=== PATIENT | male | born 1945 | race Caucasian/White ===

== ENCOUNTER 2016-12-13 11:40 | Emergency (ER) | payer OTHER, MEDICARE ==
[~2016-12-13 11:40] MED LIST: APIX5TAB PO; ASPI81 PO; CARV6.25 PO; DILT30 PO; FURO1TAB93 PO; IPRA.5I NEB; LEVA750T PO; LISI2.5T3 PO; METH5 PO; MVI PO; NEBUMIS6 INH; SIMV5TAB32 PO; TRAZ100T50 PO; ZOFR8TAB PO
[2016-12-13 11:42] VITALS: BP 146/99; PULSE 109; RESP 20; TEMP 97.7; O2SAT 99
--- NOTE | 2016-12-13 12:04 | PD ---
Physical Exam Date Seen by Provider: Dec 13, 2016 Time Seen by Provider: 12:01 Data Data Last Documented VS Vital Signs Date Time Temp Pulse Resp B/P Pulse Ox O2 Delivery O2 Flow Rate FiO2 12/13/16 11:42 97.7 109 20 146/99 99 Room Air MDM Supervised Visit with MAHAD: No Narrative Course 71 YO M with complaint of RIGHT foot pain and swelling x 1 day. Denies F/C. Hx MRSA. Vitals reviewed. Awaiting bed placement. Katherine Cohen Dec 13, 2016 12:04
--- NOTE | 2016-12-13 12:15 | PD ---
HPI Chief Complaint: Skin Problem Time Seen by Provider: 12:15 Travel History International Travel<30 days: No Contact w/Intl Traveler<30days: No Traveled to known affect area: No History of Present Illness HPI 71-year-old male came to the emergency room with history of right foot swelling and pain since yesterday. Patient does not recall any injury to the foot. No history of fever or chills. No history of diabetes. He does have a poor podiatry hygiene. Vital signs showed tachycardia. Patient is atrial fibrillation on the monitor. He says he has history of A. fib but is not on any blood thinners. He says his [place] doctor took him off the blood thinners. He was also diagnosed with CLL about a year ago. [facility] Past Medical History Narrative Medical List of his past medical, surgical, social and family history is reviewed from the nursing note. Arthritis: Yes Asthma: No Heart Rhythm Problems: Yes (recent episode of afib rvr) Cancer: Yes (LEUKEMIA) Cardiovascular Problems: Yes High Cholesterol: Yes Chemotherapy: No Chest Pain: No Congestive Heart Failure: No COPD: Yes Cerebrovascular Accident: Yes Diabetes: No Diminished Hearing: No Endocrine: Yes GERD: Yes Genitourinary: No Hiatal Hernia: No Hypertension: Yes Immune Disorder: No Inguinal Hernia: Yes Musculoskeletal: Yes Neurologic: Yes Psychiatric: No Reproductive: No Respiratory: Yes Radiation Therapy: No Sleep Apnea: No Thyroid Disease: Yes (HYPERTHYROID) Ulcer: No Past Surgical History Abdominal Surgery: Yes (hernia repair) Cardiac Surgery: Yes (left carotid endarterectomy) Ear Surgery: No Endocrine Surgery: No Eye Surgery: Yes (right cataract surgery) Genitourinary Surgery: No Gynecologic Surgery: No Oral Surgery: No Thoracic Surgery: No Other Surgery: Yes (THUMB SURGERY, CAROTID ENDORECTOMY 2004) Social History Alcohol Use: No Tobacco Use: Yes Substance Use: No Allergies-Medications (Allergen,Severity, Reaction): Coded Allergies: No Known Allergies (Unverified , 12/13/16) Comments No known drug allergies. Reported Meds & Prescriptions Reported Meds & Active Scripts Active Keflex (Cephalexin) 500 Mg Cap 500 Mg PO Q8H Reported Imbruvica (Ibrutinib) 140 Mg Cap 140 Mg PO DAILY Theragran-M Premier 50+ Caplet (Mv-Mn/FA/Coq10/Lycopene/Lutein) 1 Each Tablet Ipratropium Neb (Ipratropium [place]) 0.5 Mg/2.5 Ml Amp 0.5 Mg NEB Q2HR NEB PRN Aspirin 81 (Aspirin) 81 Mg Tabdr 81 Mg PO DAILY Carvedilol 6.25 Mg Tab 6.25 Mg PO BID Furosemide 40 Mg Tab 40 Mg PO DAILY Methimazole 5 Mg Tab 5 Mg PO DAILY Lisinopril 2.5 Mg Tab 2.5 Mg PO DAILY Trazodone HCl 150 Mg Tablet 100 Mg PO HS PRN Simvastatin 5 Mg Tab 5 Mg PO DAILY Narrative Medication List of his home medications reviewed from the nursing note. Review of Systems Except as stated in HPI: all other systems reviewed are Neg Physical Exam Narrative GENERAL: Awake, alert, moderate distress SKIN: Focused skin assessment warm/dry. The lateral half of the dorsum of right foot has erythema and some swelling. Extremely tender to touch over the head of the third fourth and fifth metatarsal. The toes are crooked and elongated and curled nails. The interdigital space between the fourth and fifth toes but have some fungal infection. HEAD: Atraumatic. Normocephalic. EYES: Pupils equal and round. No scleral icterus. No injection or drainage. ENT: No nasal bleeding or discharge. Mucous membranes pink and moist. NECK: Trachea midline. No JVD. CARDIOVASCULAR: Regular rate and rhythm. No murmur appreciated. RESPIRATORY: No accessory muscle use. Clear to auscultation. Breath sounds equal bilaterally. GASTROINTESTINAL: Abdomen soft, non-tender, nondistended. Hepatic and splenic margins not palpable. MUSCULOSKELETAL: No obvious deformities. No clubbing. No cyanosis. No edema. NEUROLOGICAL: Awake and alert. No obvious cranial nerve deficits. Motor grossly within normal limits. Normal speech. PSYCHIATRIC: Appropriate mood and affect; insight and judgment normal. Data Data Last Documented VS Vital Signs Date Time Temp Pulse Resp B/P Pulse Ox O2 Delivery O2 Flow Rate FiO2 12/13/16 12:22 103 20 124/76 95 Room Air 12/13/16 11:42 97.7 Orders Basic Metabolic Panel (Bmp) (12/13/16 12:23) Complete Blood Count With Diff (12/13/16 12:23) Blood Culture (12/13/16 12:23) Acetamin-Hydrocod 325-5 Mg ([place] 5-325 (12/13/16 12:30) Cefazolin Inj (Ancef Inj) (12/13/16 12:30) Prothrombin Time / Inr (Pt) (12/13/16 12:23) Foot, Complete ([id number]) (12/13/16 ) Electrocardiogram (12/13/16 ) Labs Laboratory Tests Test 12/13/16 12:40 White Blood Count 6.0 TH/MM3 Red Blood Count 3.74 MIL/MM3 Hemoglobin 10.9 GM/DL Hematocrit 33.7 % Mean Corpuscular Volume 90.1 FL Mean Corpuscular Hemoglobin 29.2 PG Mean Corpuscular Hemoglobin 32.4 % Concent Red Cell Distribution Width 15.3 % Platelet Count 91 TH/MM3 Mean Platelet Volume 10.4 FL Neutrophils (%) (Auto) 44.4 % Lymphocytes (%) (Auto) 48.3 % Monocytes (%) (Auto) 5.8 % Eosinophils (%) (Auto) 0.8 % Basophils (%) (Auto) 0.7 % Neutrophils # (Auto) 2.7 TH/MM3 Lymphocytes # (Auto) 2.9 TH/MM3 Monocytes # (Auto) 0.3 TH/MM3 Eosinophils # (Auto) 0.0 TH/MM3 Basophils # (Auto) 0.0 TH/MM3 CBC Comment AUTO DIFF Differential Total Cells 100 Counted Neutrophils % (Manual) 43 % Band Neutrophils % 4 % Lymphocytes % 47 % Monocytes % 3 % Eosinophils % 2 % Neutrophils # (Manual) 2.9 TH/MM3 Myelocytes 1 % Differential Comment FINAL DIFF MANUAL Atypical Lymphocytes % Platelet Estimate LOW Platelet Morphology Comment ENLARGED Ovalocytes 1+ Prothrombin Time 10.4 SEC Prothromb Time International 0.9 RATIO Ratio Sodium Level 144 MEQ/L Potassium Level 4.0 MEQ/L Chloride Level 110 MEQ/L Carbon Dioxide Level 27.9 MEQ/L Anion Gap 6 MEQ/L Blood Urea Nitrogen 18 MG/DL Creatinine 1.03 MG/DL Estimat Glomerular Filtration 71 ML/MIN Rate Random Glucose 87 MG/DL Calcium Level 8.5 MG/DL [facility] Medical Decision Making Medical Screen Exam Complete: Yes Emergency Medical Condition: Yes Medical Record Reviewed: Yes Interpretation(s) Twelve-lead EKG was reviewed by me. Atrial fibrillation, normal axis, rate controlled. Heart rate of 96 bpm Differential Diagnosis Cellulitis, foot fracture, osteomyelitis Narrative Course 1:59 PM blood test result shows thrombocytopenia along with abnormal platelets which probably is from the CLL. That could be a reason why patient is not on any blood thinners. Patient does have a primary care doctor and I would recommend him to follow up with his primary care regarding his atrial fibrillation and to address his blood thinner issue again. X-ray of the foot is otherwise within normal limits. Rest of the blood test results are within normal limit as well. He received a dose of Ancef and I'll discharge him home on Keflex. Procedures EKG Prior to Arrival: No Diagnosis Primary Impression: Cellulitis of foot, right Additional Impression: Atrial fibrillation Qualified Code: I48.2 - Chronic atrial fibrillation Referrals: Primary Care Physician 3 days Additional Instructions: Please return to the ER if the condition worsens or any other new concerns. Soaking her foot in warm water with some Epsom salt added to it. Do this 4-5 times a day. Take the antibiotic as per the prescription direction. Please follow-up with your primary care in couple days. Also asked her primary care about being on blood thinners since you continue to be in atrial fibrillation. Med/Other Pt SpecificInfo: Prescription(s) given Scripts Cephalexin (Keflex)500 Mg Ska088 Mg PO Q8H #30 CAP Ref 0 Prov:Janell Haney MD 12/13/16 Disposition: 01 DISCHARGE HOME Condition: Stable Janell Haney MD Dec 13, 2016 12:15
[2016-12-13 12:22] VITALS: BP 124/76; PULSE 103; RESP 20; O2SAT 95
[2016-12-13] MEDS ORDERED: ACETAMINOPHEN/HYDROcodone 325 MG/5 MG TAB PO ONE (12:30)
[2016-12-13 12:58] LABS: AUTOMATED NEUTROPHIL # 2.7 TH/MM3 (1.8-7.7); BASOPHIL % 0.7 % (0.0-2.0); EOSINOPHIL % 0.8 % (0.0-4.0); HEMATOCRIT 33.7 % (39.0-51.0); LYMPH % 48.3 % (9.0-44.0); LYMPHOCYTE # 2.9 TH/MM3 (1.0-4.8); MEAN CELL VOLUME 90.1 FL (80.0-100.0); MEAN CORPUSCULAR HEMOGLOBIN 29.2 PG (27.0-34.0); MEAN CORPUSCULAR HGB CONC 32.4 % (32.0-36.0); MONO % 5.8 % (0.0-8.0); NEUT % 44.4 % (16.0-70.0); PLATELET COUNT 91 TH/MM3 (150-450); RED BLOOD COUNT 3.74 MIL/MM3 (4.50-5.90); RED CELL DISTRIBUTION WIDTH 15.3 % (11.6-17.2)
[2016-12-13 13:06] LABS: HEMO FLAGS AUTO DIFF; INTERNATIONAL NORMALIZED RATIO 0.9 RATIO; PROTHROMBIN TIME - PATIENT 10.4 SEC (9.8-11.6)
[2016-12-13] MEDS ORDERED: TRAZ1TAB45 PO (13:06)
[2016-12-13] MEDS ORDERED: FURO40TA PO (13:06)
[2016-12-13] MEDS ORDERED: SIMV5TAB3 PO (13:06)
[2016-12-13] MEDS ORDERED: LISI2.5T3 PO (13:06)
[2016-12-13] MEDS ORDERED: CARV6.252 PO (13:06)
[2016-12-13] MEDS ORDERED: IBRU1CAP PO (13:06)
[2016-12-13] MEDS ORDERED: ASPI-110 PO (13:06)
[2016-12-13] MEDS ORDERED: THER50TA3 (13:06)
[2016-12-13] MEDS ORDERED: IPRA0.02 NEB (13:06)
[2016-12-13] MEDS ORDERED: METH5TAB4 PO (13:06)
[2016-12-13 13:13] LABS: BICARBONATE 27.9 MEQ/L (21.0-32.0)
[2016-12-13 13:35] LABS: BANDS 4 % (0-6); EOSINOPHILS 2 % (0-4); MYELOCYTES 1 % (0-0); NEUTROPHIL # MANUAL DIFF 2.9 TH/MM3 (1.8-7.7); PLATELET ESTIMATE SMEAR LOW (NORMAL); PLATELET MORPHOLOGY ENLARGED (NORMAL); POLYS (SEG NEUTROPHILS) 43 % (16-70); WBC DIFF SAMPLE 100
[2016-12-13 13:36] LABS: OVALOCYTES 1+ (NORMAL); SCAN/DIFF FINAL DIFF MANUAL
--- NOTE | 2016-12-13 13:41 | RADRPT ---
EXAM DATE/TIME: 12/13/2016 12:42 [facility] COMPARISON: No previous studies available for comparison. INDICATIONS : Right foot pain, swelling for 2 days with no known injury MEDICAL HISTORY : None. SURGICAL HISTORY : None. ENCOUNTER: Initial ACUITY: 2 days PAIN SCORE: 7/10 LOCATION: Right dorsal surface of foot FINDINGS: 3 views right foot. Diffuse bone demineralization. Bone alignment within normal limits. No evidence of fracture. Small osteophytes of the first and second tarsometatarsal joints as well as the navicula r cuneiform joint is CONCLUSION: No evidence of fracture. Parviz Bhakta MD on December 13, 2016 at 13:38 Board Certified Radiologist. This report was verified electronically.
[2016-12-13] MEDS ORDERED: CEPH-460 PO (14:02)
--- NOTE | 2016-12-14 14:37 | EKG ---
Date Performed: 12/13/2016 Time Performed: 12:27:45 PTAGE: 71 years EKG: ATRIAL FIBRILLATION BORDERLINE RIGHT AXIS DEVIATION Compared to previous tracing, there is a rhythm change from sinus tachycardia to atrial fibrillation. ABNORMAL RHYTHM ECG PREVIOUS TRACING : 04/01/2016 05.19 DOCTOR: Jason Burciaga Interpretating Date/Time 12/14/2016 14:35:04
== END 2016-12-13 14:16 | disposition home or self-care (01) ==
LOC: NEPD 11:40
DX: L03.115 Cellulitis of right lower limb (principal); I48.91 Unspecified atrial fibrillation; E05.90 Thyrotoxicosis, unspecified without thyrotoxic crisis or storm; J44.9 Chronic obstructive pulmonary disease, unspecified; K21.9 Gastro-esophageal reflux disease without esophagitis; I10 Essential (primary) hypertension; E78.00 Pure hypercholesterolemia, unspecified; Z87.891 Personal history of nicotine dependence
CPT/HCPCS: 73630; 80048; 85007; 85027; 85610; 87040; 93005; 96365; 99285; J0690

== ENCOUNTER 2017-09-10 14:05 | Emergency (ER) | payer MEDICARE, OTHER ==
[~2017-09-10 14:05] MED LIST changes: -APIX5TAB PO; +ASPI1TAB57 PO; -ASPI81 PO; -CARV6.25 PO; +CARV6.252 PO; +CEPH-460 PO; -DILT30 PO; -FURO1TAB93 PO; +FURO40TA PO; +IBRU1CAP PO; -IPRA.5I NEB; +IPRA0.02 NEB; -LEVA750T PO; -METH5 PO; +METH5TAB4 PO; -MVI PO; -NEBUMIS6 INH; +SIMV5TAB3 PO; -SIMV5TAB32 PO; +THER50TA3; -TRAZ100T50 PO; +TRAZ1TAB14 PO; -ZOFR8TAB PO
[2017-09-10 14:10] VITALS: BP 143/82; PULSE 126; RESP 20; TEMP 98.7; O2SAT 97
--- NOTE | 2017-09-10 15:51 | PD ---
HPI Chief Complaint: Eye Problems/Injury Time Seen by Provider: 15:50 Travel History International Travel<30 days: No Contact w/Intl Traveler<30days: No Traveled to known affect area: No History of Present Illness HPI 72-year-old male, [facility] department with ongoing left-sided eye itching, tearing, and redness for the past week. Patient denies any visual changes. Patient states he may have been exposed to something in the yard last week. Patient has no fever, chills, or other symptoms. He has been using jprd-gah-gmohoth drops without improvement. The right eye is not affected. Patient is noted to have a tachycardic rate in triage. He has no known drug allergies. PFSH Past Medical History Arthritis: Yes Asthma: No Heart Rhythm Problems: Yes (recent episode of afib rvr) Cancer: Yes (LEUKEMIA) Cardiovascular Problems: Yes High Cholesterol: Yes Chemotherapy: No Chest Pain: No Congestive Heart Failure: No COPD: Yes Cerebrovascular Accident: Yes Diabetes: No Diminished Hearing: No Endocrine: Yes Gastrointestinal Disorders: Yes GERD: Yes Genitourinary: No Hiatal Hernia: No Hypertension: Yes Immune Disorder: No Inguinal Hernia: Yes Musculoskeletal: Yes Neurologic: Yes Psychiatric: No Reproductive: No Respiratory: Yes Radiation Therapy: No Sleep Apnea: No Thyroid Disease: Yes (HYPERTHYROID) Ulcer: No Past Surgical History Abdominal Surgery: Yes (hernia repair) Cardiac Surgery: Yes (left carotid endarterectomy) Ear Surgery: No Endocrine Surgery: No Eye Surgery: Yes (right cataract surgery) Genitourinary Surgery: No Gynecologic Surgery: No Oral Surgery: No Thoracic Surgery: No Other Surgery: Yes (THUMB SURGERY, CAROTID ENDORECTOMY 2004) Social History Alcohol Use: No Tobacco Use: Yes Substance Use: No Allergies-Medications (Allergen,Severity, Reaction): Coded Allergies: No Known Allergies (Unverified Adverse Reaction, Unknown, 09/10/17) Reported Meds & Prescriptions Reported Meds & Active Scripts Active Oyzualgc-Nvhympxtx-Vlddzcasfwgaf Opth Oint 3.5 Gm Oint 1 Applic LEFT EYE QID Keflex (Cephalexin) 500 Mg Cap 500 Mg PO Q8H Reported Imbruvica (Ibrutinib) 140 Mg Cap 140 Mg PO DAILY Theragran-M Premier 50+ Caplet (Mv-Mn/FA/Coq10/Lycopene/Lutein) 1 Each Tablet Ipratropium Neb (Ipratropium [place]) 0.5 Mg/2.5 Ml Amp 0.5 Mg NEB Q2HR NEB PRN Aspirin 81 (Aspirin) 81 Mg Tabdr 81 Mg PO DAILY Carvedilol 6.25 Mg Tab 6.25 Mg PO BID Furosemide 40 Mg Tab 40 Mg PO DAILY Methimazole 5 Mg Tab 5 Mg PO DAILY Lisinopril 2.5 Mg Tab 2.5 Mg PO DAILY Trazodone (Trazodone HCl) 150 Mg Tablet 100 Mg PO HS PRN Simvastatin 5 Mg Tab 5 Mg PO DAILY Review of Systems Except as stated in HPI: all other systems reviewed are Neg General / Constitutional: No: Fever Eyes: Positive: Drainage, Redness, Tearing, Other (Itching), No: Diploplia, Blurred Vision, Photophobia, Foreign Body Sensation, Pain, Blind Spots, Visual changes, Blindness HENT: No: Headaches, Vertigo, Lightheadedness, Sore Throat, Rhinitis, Rhinorrhea, Congestion, Nosebleed, Neck Stiffness, Neck Pain, Dental Difficulties, Earache Cardiovascular: Positive: Irregular Rhythm (Chronically), Tachycardia (Noted in triage), No: Chest Pain or Discomfort Respiratory: No: Cough, Shortness of Breath, Wheezing Gastrointestinal: No: Abdominal Pain Genitourinary: No: Dysuria Musculoskeletal: No: Pain Skin: No Rash Neurologic: No: Weakness Psychiatric: No: Depression Endocrine: No: Polydipsia Hematologic/Lymphatic: No: Easy Bruising Physical Exam Narrative GENERAL: Patient is in no acute distress. SKIN: Warm and dry. Patient has irritated dry excoriated appearing area around the right eye to both the upper and lower eyelid. HEAD: Atraumatic. Normocephalic. EYES: Pupils equal and round. No scleral icterus. Left eye has moderate injection with small amount of tearing and mild purulent drainage. Vision is intact and equal bilaterally ENT: No nasal bleeding or discharge. Mucous membranes pink and moist. TMs are clear bilaterally. Pharynx is clear. Airways patent NECK: Trachea midline. Supple and nontender. CARDIOVASCULAR: Regular rate and rhythm. RESPIRATORY: No accessory muscle use. Clear to auscultation. Breath sounds equal bilaterally. GASTROINTESTINAL: Abdomen soft, non-tender, nondistended. Hepatic and splenic margins not palpable. MUSCULOSKELETAL: Extremities without clubbing, cyanosis, or edema. No obvious deformities. NEUROLOGICAL: Awake and alert. No obvious cranial nerve deficits. Motor grossly within normal limits. Five out of 5 muscle strength in the arms and legs. Normal speech. PSYCHIATRIC: Appropriate mood and affect; insight and judgment normal. Data Data Last Documented VS Vital Signs Date Time Temp Pulse Resp B/P (MAP) Pulse Ox O2 Delivery O2 Flow Rate FiO2 09/10/17 14:14 127 18 09/10/17 14:10 98.7 143/82 (102) 97 Orders Orders Electrocardiogram (09/10/17 14:20) [facility] Medical Decision Making Medical Screen Exam Complete: Yes Emergency Medical Condition: Yes Differential Diagnosis Allergic conjunctivitis. Conjunctivitis. Atrial fibrillation Narrative Course Patient appears in no acute distress. EKG is ordered showing atrial fibrillation with RVR with a rate of 101. Patient is felt stable for discharge at this time. Patient will be treated with neomycin/polymyxin/dexamethasone ophthalmic ointment as directed every 6 hours while awake. 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 Diagnosis Primary Impression: Allergic conjunctivitis of left eye Additional Impression: Afib Qualified Codes: I48.2 - Chronic atrial fibrillation Referrals: [facility] Patient Instructions: Conjunctivitis (ED), General Instructions Additional Instructions: EKG is ordered showing atrial fibrillation with RVR with a rate of 101. Patient is felt stable for discharge at this time. Patient will be treated with neomycin/polymyxin/dexamethasone ophthalmic ointment as directed every 6 hours while awake. [facility] and installer as needed. Med/Other Pt SpecificInfo: Prescription(s) given Scripts Cyxjqxjc-Uwneymveu-Nqgokezdrwore Opth Oint (Dkqradqf-Sroyxcnup-Ijtvbmqquyszd Opth Oint) 3.5 Gm Oint 1 APPLIC LEFT EYE QID for Infection, #3.5 GM 0 Refills Prov: Janell Haney MD 09/10/17 Disposition: 01 DISCHARGE HOME Condition: Stable Trino Ambrosio Sep 10, 2017 15:50
[2017-09-10] MEDS ORDERED: NEOM0.1O4 LEFT EYE (15:59)
--- NOTE | 2017-09-11 11:59 | EKG ---
Date Performed: 09/10/2017 Time Performed: 14:34:36 PTAGE: 72 years EKG: ATRIAL FIBRILLATION WITH RAPID VENTRICULAR RESPONSE NONSPECIFIC T-WAVE ABNORMALITY ABNORMAL RHYTHM ECG PREVIOUS TRACING 01/09/2017 When compared to prior EKG, no significant change. DOCTOR: Savita Ruano Interpretating Date/Time 09/11/2017 11:57:58
== END 2017-09-10 16:31 | disposition home or self-care (01) ==
LOC: NEPD 14:05
DX: H10.12 Acute atopic conjunctivitis, left eye (principal); I48.2 Chronic atrial fibrillation; I10 Essential (primary) hypertension; E78.00 Pure hypercholesterolemia, unspecified; Z72.0 Tobacco use
CPT/HCPCS: 93005

== ENCOUNTER 2017-09-13 20:51 | Emergency (ER) | payer MEDICARE ==
[~2017-09-13] VITALS: Ht 170.2 cm; Wt 68.0 kg
[~2017-09-13 20:51] MED LIST changes: +NEOM0.1O4 LEFT EYE
[2017-09-13 21:34] VITALS: BP 144/110; PULSE 115; RESP 20; TEMP 98.8; O2SAT 98
[2017-09-13] MEDS ORDERED: traMADol HCL 50 MG TAB PO ONE (21:45)
--- NOTE | 2017-09-13 21:48 | PD ---
HPI Chief Complaint: Injury Time Seen by Provider: 21:41 Travel History International Travel<30 days: No Contact w/Intl Traveler<30days: No Traveled to known affect area: No History of Present Illness HPI Patient is a 72-year-old male who comes in complaining of left foot and ankle pain. He says got caught in the seatbelt and twisted it. He denies any other injury. He has been using a crutch at home because it hurts to walk. He has not taken anything for the pain. Severity is mild to moderate. PFSH Past Medical History Arthritis: Yes Asthma: No Heart Rhythm Problems: Yes (recent episode of afib rvr) Cancer: Yes (LEUKEMIA) Cardiovascular Problems: Yes (HTN) High Cholesterol: Yes Chemotherapy: No Chest Pain: No Congestive Heart Failure: No COPD: Yes Cerebrovascular Accident: Yes Diabetes: No Diminished Hearing: No Endocrine: Yes Gastrointestinal Disorders: Yes GERD: Yes Genitourinary: No Hiatal Hernia: No Hypertension: Yes Immune Disorder: No Inguinal Hernia: Yes Musculoskeletal: Yes Neurologic: Yes Psychiatric: No Reproductive: No Respiratory: Yes Radiation Therapy: No Sleep Apnea: No Thyroid Disease: Yes (HYPERTHYROID) Ulcer: No Tetanus Vaccination: Unknown Influenza Vaccination: Yes Past Surgical History Abdominal Surgery: Yes (hernia repair) Cardiac Surgery: Yes (left carotid endarterectomy) Ear Surgery: No Endocrine Surgery: No Eye Surgery: Yes (right cataract surgery) Genitourinary Surgery: No Gynecologic Surgery: No Oral Surgery: No Thoracic Surgery: No Other Surgery: Yes (THUMB SURGERY, CAROTID ENDORECTOMY 2004) Social History Alcohol Use: No Tobacco Use: Yes Substance Use: No Allergies-Medications (Allergen,Severity, Reaction): Coded Allergies: No Known Allergies (Unverified Adverse Reaction, Unknown, 09/13/17) Reported Meds & Prescriptions Reported Meds & Active Scripts Active Aadahcbj-Vipvjmqfx-Kquufezyddokr Opth Oint 3.5 Gm Oint 1 Applic LEFT EYE QID Keflex (Cephalexin) 500 Mg Cap 500 Mg PO Q8H Reported Imbruvica (Ibrutinib) 140 Mg Cap 140 Mg PO DAILY Theragran-M Premier 50+ Caplet (Mv-Mn/FA/Coq10/Lycopene/Lutein) 1 Each Tablet Ipratropium Neb (Ipratropium [place]) 0.5 Mg/2.5 Ml Amp 0.5 Mg NEB Q2HR NEB PRN Aspirin 81 (Aspirin) 81 Mg Tabdr 81 Mg PO DAILY Carvedilol 6.25 Mg Tab 6.25 Mg PO BID Furosemide 40 Mg Tab 40 Mg PO DAILY Methimazole 5 Mg Tab 5 Mg PO DAILY Lisinopril 2.5 Mg Tab 2.5 Mg PO DAILY Trazodone (Trazodone HCl) 150 Mg Tablet 100 Mg PO HS PRN Simvastatin 5 Mg Tab 5 Mg PO DAILY Review of Systems General / Constitutional: No: Fever, Chills HENT: No: Headaches, Lightheadedness Cardiovascular: No: Chest Pain or Discomfort Respiratory: No: Shortness of Breath Gastrointestinal: No: Nausea, Vomiting Musculoskeletal: Positive: Edema, Pain Skin: No Rash, No Change in Pigmentation Neurologic: No: Weakness, Dizziness Physical Exam Narrative GENERAL: Awake and alert, in no acute distress. SKIN: Focused skin assessment warm/dry. No wounds or signs of infection. HEAD: Atraumatic. Normocephalic. EYES: Pupils equal and round. No scleral icterus. ENT: Mucous membranes pink and moist. CARDIOVASCULAR: Regular rate and rhythm. No murmur appreciated. RESPIRATORY: No accessory muscle use. Clear to auscultation. Breath sounds equal bilaterally. MUSCULOSKELETAL: No obvious deformities. No clubbing. No cyanosis. Swelling of the left ankle. Mild tenderness to palpation of the lateral malleolus. Pedal pulses intact. NEUROLOGICAL: Awake and alert. No obvious cranial nerve deficits. Motor grossly within normal limits. Normal speech. Data Data Last Documented VS Vital Signs Date Time Temp Pulse Resp B/P (MAP) Pulse Ox O2 Delivery O2 Flow Rate FiO2 09/13/17 21:34 98.8 115 20 144/110 (121) 98 Room Air Orders Orders Foot, Complete (Jzz2cbm) (09/13/17 ) Tibia/Fibula (Ap/Lat) (09/13/17 ) Tramadol (Ultram) (09/13/17 21:45) MDM Medical Decision Making Medical Screen Exam Complete: Yes Emergency Medical Condition: Yes Medical Record Reviewed: Yes Differential Diagnosis ankle fracture vs foot fracture vs sprain Narrative Course Patient is a 72 year old male who comes in complaining of left ankle pain. Exam shows swelling and tenderness. XR of the foot and tib/fib performed shows no acute abnormalities. Given Tramadol. Given an Austyn Bandage. Advised to apply ice and rest. Advised to follow up with orthopedics as needed. Advised to return to the ED as needed for any worsening symptoms. Diagnosis Primary Impression: Ankle sprain Qualified Codes: S93.402A - Sprain of unspecified ligament of left ankle, initial encounter Referrals: Rebel Sandra Jr., MD call for appointment Patient Instructions: Ankle Sprain (ED), General Instructions Additional Instructions: Take Tylenol or Ibuprofen for pain. Take Tramadol for severe pain, but be careful as it may make you drowsy. Follow up with orthopedics as needed. Return to the ED as needed for any worsening symptoms. Scripts Tramadol (Tramadol) 50 Mg Tab 50 MG PO Q6H Y for PAIN, #10 TAB 0 Refills Prov: Mary Zarco MD 09/13/17 Disposition: 01 DISCHARGE HOME Condition: Stable Mary Zarco MD Sep 13, 2017 21:48
--- NOTE | 2017-09-13 22:25 | RADRPT ---
EXAM DATE/TIME: 09/13/2017 21:59 [facility] COMPARISON: No previous studies available for comparison. INDICATIONS : Pain from twisting motion. MEDICAL HISTORY : None. SURGICAL HISTORY : None. ENCOUNTER: Initial ACUITY: 1 day PAIN SCORE: 4/10 LOCATION: Left ankle. FINDINGS: Two view examination of the left tibia demonstrates no evidence of fracture or dislocation. Bony min eralization is normal. The soft tissue structures are intact. CONCLUSION: 1. No acute bony abnormality. Fdiel Peters MD on September 13, 2017 at 22:22 Board Certified Radiologist. This report was verified electronically.
--- NOTE | 2017-09-13 22:28 | RADRPT ---
EXAM DATE/TIME: 09/13/2017 22:01 [facility] COMPARISON: No previous studies available for comparison. INDICATIONS : Pain from twisting motion. MEDICAL HISTORY : None. SURGICAL HISTORY : None. ENCOUNTER: Initial ACUITY: 1 day PAIN SCORE: 4/10 LOCATION: Left ankle. FINDINGS: Three view examination of the left foot demonstrates no soft tissue swelling, dislocation, or fractur e. The tarsal bones appear intact. The interphalangeal and metatarsophalangeal joints are intact. The calcaneus is intact. Bony mineralization is normal. CONCLUSION: 1. No acute findings. Fidel Peters MD on September 13, 2017 at 22:23 Board Certified Radiologist. This report was verified electronically.
[2017-09-13] MEDS ORDERED: TRAM50TA PO (22:44)
== END 2017-09-13 22:56 | disposition home or self-care (01) ==
LOC: NEPD 20:51
DX: S93.402A Sprain of unspecified ligament of left ankle, initial encounter (principal); E78.00 Pure hypercholesterolemia, unspecified; I10 Essential (primary) hypertension; X50.1XXA Overexertion from prolonged static or awkward postures, initial encounter; Z72.0 Tobacco use
CPT/HCPCS: 73590; 73630; 99283

== ENCOUNTER 2017-12-27 10:25 | Emergency (ER) | payer OTHER, MEDICARE ==
[~2017-12-27] VITALS: Ht 170.2 cm; Wt 72.0 kg
[~2017-12-27 10:25] MED LIST changes: +TRAM50TA PO
[2017-12-27 10:28] VITALS: BP 153/77; PULSE 94; RESP 16; TEMP 97.4; O2SAT 97
[2017-12-27] MEDS ORDERED: MORPHINE SULFATE 4 MG/ML INJ IV PUSH ONE (10:45)
[2017-12-27] MEDS ORDERED: ONDANSETRON ODT 4 MG TAB PO ONE (10:45)
[2017-12-27] MEDS ORDERED: SODIUM CHLORID 0.9% 500 ML INJ 500 ML IV ONE (10:45)
--- NOTE | 2017-12-27 10:49 | PD ---
HPI Chief Complaint: Skin Problem Time Seen by Provider: 10:38 Travel History International Travel<30 days: No Contact w/Intl Traveler<30days: No Traveled to known affect area: No History of Present Illness HPI The patient is a 72-year-old male who presents to the emergency department for painful rash of the right upper extremity. The patient has a history of leukemia, he believes CLL, there is currently in remission. The patient is followed by his oncologist who is located in [place], [place], through the [facility]. The patient's last round of chemotherapy was 3 months ago, he is scheduled for an appointment next month with his oncologist. The patient states he developed right shoulder pain 2 days ago and then developed a painful rash today that goes down the lateral aspect of the right humerus, the volar aspect of the right forearm, goes down to the second digit of the right hand. He does note blistering and pain with the rash. He does have a history of chickenpox but denies any history of shingles. He denies any rash to the face, intraoral area, or other extremities. Symptoms are moderate. There are no current alleviating factors. PFSH Past Medical History Arthritis: Yes Asthma: No Heart Rhythm Problems: Yes (afib ) Cancer: Yes (LEUKEMIA) Cardiovascular Problems: Yes (HTN) High Cholesterol: Yes Chemotherapy: No Chest Pain: No Congestive Heart Failure: No COPD: Yes Cerebrovascular Accident: Yes Diabetes: No Diminished Hearing: No Endocrine: Yes Gastrointestinal Disorders: Yes GERD: Yes Genitourinary: No Hiatal Hernia: No Hypertension: Yes Immune Disorder: No Inguinal Hernia: Yes Musculoskeletal: Yes Neurologic: Yes Psychiatric: No Reproductive: No Respiratory: Yes Radiation Therapy: No Sleep Apnea: No Thyroid Disease: Yes (HYPERTHYROID) Ulcer: No Past Surgical History Abdominal Surgery: Yes (hernia repair) Cardiac Surgery: Yes (left carotid endarterectomy) Ear Surgery: No Endocrine Surgery: No Eye Surgery: Yes (right cataract surgery) Genitourinary Surgery: No Gynecologic Surgery: No Oral Surgery: No Thoracic Surgery: No Other Surgery: Yes (THUMB SURGERY, CAROTID ENDORECTOMY 2004) Social History Alcohol Use: No Tobacco Use: Yes (half a pack ) Substance Use: No Allergies-Medications (Allergen,Severity, Reaction): Coded Allergies: No Known Allergies (Unverified Adverse Reaction, Unknown, 12/27/17) Reported Meds & Prescriptions Reported Meds & Active Scripts Active Reported Imbruvica (Ibrutinib) 140 Mg Cap 140 Mg PO DAILY Theragran-M Premier 50+ Caplet (Mv-Mn/FA/Coq10/Lycopene/Lutein) 1 Each Tablet Ipratropium Neb (Ipratropium [place]) 0.5 Mg/2.5 Ml Amp 0.5 Mg NEB Q2HR NEB PRN Aspirin 81 (Aspirin) 81 Mg Tabdr 81 Mg PO DAILY Carvedilol 6.25 Mg Tab 6.25 Mg PO BID Furosemide 40 Mg Tab 40 Mg PO DAILY Methimazole 5 Mg Tab 5 Mg PO DAILY Lisinopril 2.5 Mg Tab 2.5 Mg PO DAILY Trazodone (Trazodone HCl) 150 Mg Tablet 100 Mg PO HS PRN Simvastatin 5 Mg Tab 5 Mg PO DAILY Review of Systems Except as stated in HPI: all other systems reviewed are Neg General / Constitutional: No: Fever Cardiovascular: No: Chest Pain or Discomfort Respiratory: No: Shortness of Breath Gastrointestinal: No: Nausea, Vomiting Musculoskeletal: Positive: Pain Skin: Positive Rash Neurologic: No: Paresthesia, Sensory Disturbance Hematologic/Lymphatic: Positive: Other (History of leukemia, currently in remission per the patient) Physical Exam Narrative GENERAL: Awake, alert, pleasant 72-year-old male who appears his stated age and is in no acute respiratory distress. SKIN: Patient has a vesicular rash down the lateral aspect of the right humerus , volar aspect of the right forearm, that extends down the volar aspect and radial aspect of the second digit right hand, consistent with shingles. The patient is also noted to have a few vesicular areas located in the posterior aspect of the right shoulder. HEAD: Atraumatic. Normocephalic. EYES: Pupils equal and round. No scleral icterus. No injection or drainage. ENT: No nasal bleeding or discharge. Mucous membranes pink and moist. NECK: Trachea midline. No JVD. CARDIOVASCULAR: Regular rate and rhythm. No murmur appreciated. RESPIRATORY: No accessory muscle use. Clear to auscultation. Breath sounds equal bilaterally. MUSCULOSKELETAL: No obvious deformities. No clubbing. No cyanosis. No edema. NEUROLOGICAL: Awake and alert. No obvious cranial nerve deficits. Motor grossly within normal limits. Normal speech. Nonfocal. PSYCHIATRIC: Appropriate mood and affect; insight and judgment normal. Data Data Last Documented VS Vital Signs Date Time Temp Pulse Resp B/P (MAP) Pulse Ox O2 Delivery O2 Flow Rate FiO2 12/27/17 10:28 97.4 94 16 153/77 (102) 97 Orders Orders Complete Blood Count With Diff (12/27/17 10:44) Comprehensive Metabolic Panel (12/27/17 10:44) Morphine Inj (Morphine Inj) (12/27/17 10:45) Sodium Chlorid 0.9% 500 Ml Inj (Ns 500 M (12/27/17 10:45) Ondansetron Odt (Zofran Odt) (12/27/17 10:45) Labs Laboratory Tests Test 12/27/17 10:50 White Blood Count 5.2 TH/MM3 Red Blood Count 4.36 MIL/MM3 Hemoglobin 12.5 GM/DL Hematocrit 37.6 % Mean Corpuscular Volume 86.2 FL Mean Corpuscular Hemoglobin 28.8 PG Mean Corpuscular Hemoglobin Concent 33.4 % Red Cell Distribution Width 14.4 % Platelet Count 88 TH/MM3 Mean Platelet Volume 11.3 FL Neutrophils (%) (Auto) 58.9 % Lymphocytes (%) (Auto) 31.9 % Monocytes (%) (Auto) 7.4 % Eosinophils (%) (Auto) 1.1 % Basophils (%) (Auto) 0.7 % Neutrophils # (Auto) 3.0 TH/MM3 Lymphocytes # (Auto) 1.6 TH/MM3 Monocytes # (Auto) 0.4 TH/MM3 Eosinophils # (Auto) 0.1 TH/MM3 Basophils # (Auto) 0.0 TH/MM3 CBC Comment AUTO DIFF Blood Urea Nitrogen 8 MG/DL Creatinine 1.08 MG/DL Random Glucose 82 MG/DL Total Protein 7.0 GM/DL Albumin 3.4 GM/DL Calcium Level 8.3 MG/DL Alkaline Phosphatase 74 U/L Aspartate Amino Transf (AST/SGOT) 17 U/L Alanine Aminotransferase (ALT/SGPT) 14 U/L Total Bilirubin 0.7 MG/DL Sodium Level 141 MEQ/L Potassium Level 3.8 MEQ/L Chloride Level 108 MEQ/L Carbon Dioxide Level 22.8 MEQ/L Anion Gap 10 MEQ/L Estimat Glomerular Filtration Rate 67 ML/MIN MDM Medical Decision Making Medical Screen Exam Complete: Yes Emergency Medical Condition: Yes Medical Record Reviewed: Yes Interpretation(s) Laboratory Tests Test 12/27/17 10:50 White Blood Count 5.2 TH/MM3 Red Blood Count 4.36 MIL/MM3 Hemoglobin 12.5 GM/DL Hematocrit 37.6 % Mean Corpuscular Volume 86.2 FL Mean Corpuscular Hemoglobin 28.8 PG Mean Corpuscular Hemoglobin Concent 33.4 % Red Cell Distribution Width 14.4 % Platelet Count 88 TH/MM3 Mean Platelet Volume 11.3 FL Neutrophils (%) (Auto) 58.9 % Lymphocytes (%) (Auto) 31.9 % Monocytes (%) (Auto) 7.4 % Eosinophils (%) (Auto) 1.1 % Basophils (%) (Auto) 0.7 % Neutrophils # (Auto) 3.0 TH/MM3 Lymphocytes # (Auto) 1.6 TH/MM3 Monocytes # (Auto) 0.4 TH/MM3 Eosinophils # (Auto) 0.1 TH/MM3 Basophils # (Auto) 0.0 TH/MM3 CBC Comment AUTO DIFF Blood Urea Nitrogen 8 MG/DL Creatinine 1.08 MG/DL Random Glucose 82 MG/DL Total Protein 7.0 GM/DL Albumin 3.4 GM/DL Calcium Level 8.3 MG/DL Alkaline Phosphatase 74 U/L Aspartate Amino Transf (AST/SGOT) 17 U/L Alanine Aminotransferase (ALT/SGPT) 14 U/L Total Bilirubin 0.7 MG/DL Sodium Level 141 MEQ/L Potassium Level 3.8 MEQ/L Chloride Level 108 MEQ/L Carbon Dioxide Level 22.8 MEQ/L Anion Gap 10 MEQ/L Estimat Glomerular Filtration Rate 67 ML/MIN Differential Diagnosis Differential diagnosis includes shingles, contact dermatitis, allergic reaction , leukemic reaction, thrombocytopenia, ITP, TTP. Narrative Course IV was established, labs are drawn and sent, and the patient was placed on cardiac telemetry monitoring and continuous pulse oximetry monitoring. 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 Patient has a history of CLL, white count is normal. Patient's LFTs are unremarkable. The patient will be placed on prednisone, Chloride, and acyclovir. He is advised to follow-up with his primary physician. Return if symptoms worsen or progress. Diagnosis Primary Impression: Shingles Qualified Codes: B02.9 - Zoster without complications Patient Instructions: General Instructions Additional Instructions: Please provide the patient a copy of his labs at discharge. Medications as directed. Follow-up with her primary physician and oncologist. Return if symptoms worsen or progress. Med/Other Pt SpecificInfo: Prescription(s) given Scripts Hydrocodone-Acetaminophen (Chloride) 5 Mg-325 Mg Tab 1 TAB PO Q6H Y for PAIN, #15 TAB 0 Refills Prov: Higinio Nielson MD 12/27/17 Prednisone (Prednisone) 20 Mg Tab 40 MG PO DAILY, #10 TAB 0 Refills Take 40 mg (2 tablets) daily for 5 days Prov: Higinio Nielson MD 12/27/17 Acyclovir (Acyclovir) 800 Mg Tab 800 MG PO 5 TIMES A DAY for Mgmt Viral Infection for 10 Days, TAB 0 Refills Prov: Higinio Nielson MD 12/27/17 Disposition: 01 DISCHARGE HOME Condition: Stable Higinio Nielson MD Dec 27, 2017 10:49
[2017-12-27 11:22] LABS: BASOPHIL % 0.7 % (0.0-2.0); EOSINOPHIL # 0.1 TH/MM3 (0-0.4); EOSINOPHIL % 1.1 % (0.0-4.0); HEMATOCRIT 37.6 % (39.0-51.0); HEMOGLOBIN 12.5 GM/DL (13.0-17.0); LYMPH % 31.9 % (9.0-44.0); LYMPHOCYTE # 1.6 TH/MM3 (1.0-4.8); MEAN CELL VOLUME 86.2 FL (80.0-100.0); MEAN CORPUSCULAR HEMOGLOBIN 28.8 PG (27.0-34.0); MEAN CORPUSCULAR HGB CONC 33.4 % (32.0-36.0); MEAN PLATELET VOLUME 11.3 FL (7.0-11.0); MONO % 7.4 % (0.0-8.0); MONOCYTE # 0.4 TH/MM3 (0-0.9); NEUT % 58.9 % (16.0-70.0); PLATELET COUNT 88 TH/MM3 (150-450); RED BLOOD COUNT 4.36 MIL/MM3 (4.50-5.90); RED CELL DISTRIBUTION WIDTH 14.4 % (11.6-17.2); WHITE BLOOD COUNT 5.2 TH/MM3 (4.0-11.0)
[2017-12-27 11:38] LABS: ALBUMIN 3.4 GM/DL (3.4-5.0); AST (GOT) 17 U/L (15-37); BICARBONATE 22.8 MEQ/L (21.0-32.0); BLOOD UREA NITROGEN 8 MG/DL (7-18); CALCIUM 8.3 MG/DL (8.5-10.1); CHLORIDE 108 MEQ/L (98-107); CREATININE 1.08 MG/DL (0.60-1.30); GLOMERULAR FILTRATION RATE 67 ML/MIN (>89); GLUCOSE,RANDOM 82 MG/DL (74-106); SODIUM (NA) 141 MEQ/L (136-145)
[2017-12-27 11:39] LABS: ALT (GPT) 14 U/L (12-78)
[2017-12-27 11:41] LABS: ALKALINE PHOSPHATASE 74 U/L (45-117); TOTAL BILIRUBIN ADULT 0.7 MG/DL (0.2-1.0)
[2017-12-27] MEDS ORDERED: ACYC800T PO (11:54)
[2017-12-27] MEDS ORDERED: PRED20 PO (11:54)
[2017-12-27] MEDS ORDERED: NORC5TAB PO (11:54)
[2017-12-27 11:59] LABS: OVALOCYTES 1+ (NORMAL)
== END 2017-12-27 12:14 | disposition home or self-care (01) ==
LOC: NEPC 10:25
DX: B02.9 Zoster without complications (principal); C91.11 Chronic lymphocytic leukemia of B-cell type in remission; I48.91 Unspecified atrial fibrillation; I10 Essential (primary) hypertension; E78.00 Pure hypercholesterolemia, unspecified; E05.90 Thyrotoxicosis, unspecified without thyrotoxic crisis or storm; J44.9 Chronic obstructive pulmonary disease, unspecified; K21.9 Gastro-esophageal reflux disease without esophagitis; M19.90 Unspecified osteoarthritis, unspecified site; F17.210 Nicotine dependence, cigarettes, uncomplicated; Z86.73 Personal history of transient ischemic attack (TIA), and cerebral infarction without residual deficits; Z79.899 Other long term (current) drug therapy
CPT/HCPCS: 80053; 85025; 96361; 96374; 99284; J2270; J7040

== ENCOUNTER 2018-01-09 11:57 | Inpatient (IN) ==
[2018-01-09] MEDS ORDERED: dilTIAZem 60 MG Tablet ONE (22:49)
[2018-01-09] MEDS ORDERED: traZODone 100 MG Tablet ONE (23:19)
[2018-01-10 06:01] LABS: Baso % (Auto) 0.1 % (0.0-2.0); Hematocrit 37.8 % (39.0-51.0); Hemoglobin 12.5 gm/dL (13.0-17.0); Lymph # (Auto) 1.5 th/mm3 (1.0-4.8); Lymph % (Auto) 21.4 % (9.0-44.0); Mean Corpuscular Hemoglobin 28.7 pg (27.0-34.0); Mean Corpuscular Volume 86.9 fL (80.0-100.0); Mean Platelet Volume 11.8 fL (7.0-11.0); Mono # (Auto) 0.1 th/mm3 (0.0-0.9); Mono % (Auto) 1.7 % (0.0-8.0); Neut # (Auto) 5.2 th/mm3 (1.8-7.7); Neut % (Auto) 76.8 % (16.0-70.0); Platelet Count 82 th/mm3 (150-450); Red Blood Count 4.35 mil/mm3 (4.50-5.90); Red Cell Distribution Width 14.9 % (11.6-17.2); White Blood Count 6.8 th/mm3 (4.0-11.0)
[2018-01-10 06:34] LABS: Albumin 3.1 g/dL (3.4-5.0); Anion Gap 9 meq/L (5-15); Aspartate Aminotransferase 15 U/L (15-37); Blood Urea Nitrogen 17 mg/dL (7-18); Calcium 8.7 mg/dL (8.5-10.1); Carbon Dioxide 31.4 meq/L (21.0-32.0); Chloride 102 meq/L (98-107); Glomerular Filtration Rate 53 mL/min (>89); Glucose,Random 133 mg/dL (74-106); Potassium 3.8 meq/L (3.5-5.1); Sodium 142 meq/L (136-145)
[2018-01-10 06:39] LABS: Alanine Aminotransferase 19 U/L (12-78); Alkaline Phosphatase 98 U/L (45-117); T4 (Thyroxine) 11.8 mcg/dL (4.5-12.1); Total Protein 6.8 g/dL (6.4-8.2); Triiodothyronine (T3) Free 1.44 pg/mL (2.18-3.98)
[2018-01-10 08:25] LABS: Lymphocytes 14 % (9-44); Monocytes 4 % (0-8); Myelocytes 1 % (0-0); Ovalocytes 1+
[2018-01-10] MEDS ORDERED: Morphine Inj 4 MG/ML Vial IV.PUSH PRN ×2 (08:46→08:47)
[2018-01-10] MEDS ORDERED: Naloxone Inj 0.4 MG/ML Vial IV.PUSH PRN (08:48)
[2018-01-10] MEDS ORDERED: methIMAzole 5 MG Tablet PO SCH (09:00)
[2018-01-10] MEDS ORDERED: Furosemide 40 MG Tablet PO SCH (09:00)
[2018-01-10] MEDS ORDERED: Carvedilol 6.25 MG Tablet PO SCH (09:00)
[2018-01-10] MEDS ORDERED: dilTIAZem CD 240 MG Capsule PO SCH (09:00)
[2018-01-10] MEDS ORDERED: Lisinopril 5 MG Tablet PO SCH (09:00)
--- NOTE | 2018-01-10 10:36 | P.PNIM ---
Subjective Interval history: Patient has no further chest pain. CTA of chest showed no evidence of pulmonary embolism or acute processes of the lung. Cardiac enzymes have resulted as negative for evidence of TN. Diltiazem added yesterday and patient' s currently rate controlled with improved control his blood pressures. No complaints today. Patient feels at baseline. Cardiology evaluation pending. Physical Exam Vital signs: Vital Signs 01/10/18 00:00 01/10/18 01:00 01/10/18 02:00 Temperature 97.8 F Pulse Rate 75 73 73 Respiratory Rate 18 20 21 Blood Pressure 149/76 H 151/71 H 132/63 Pulse Oximetry 93 L 96 96 01/10/18 03:00 01/10/18 04:00 01/10/18 04:05 Temperature 98.3 F Pulse Rate 74 59 L Respiratory Rate 18 21 Blood Pressure 138/67 141/66 H Pulse Oximetry 95 96 01/10/18 06:00 01/10/18 06:24 01/10/18 09:39 Temperature Pulse Rate 65 Respiratory Rate Blood Pressure Pulse Oximetry 98 95 Intake & Output 01/09/18 01/10/18 01/10/18 18:59 06:59 18:59 Intake Total 900 / 900 Output Total 1500 / 1500 Balance -600 / -600 Weight 50 kg Intake: Oral 900 / 900 Output: Urine 1500 / 1500 Other: Date of Last Bowel Movement 01/09/18 # Bowel Movements 0 Weight On Admission 50 kg - Routine HEENT Exam Comments: GENERAL: NAD, A&Ox3 HEAD: Normocephalic. NECK: Supple, trachea midline. No lymphadenopathy. EYES: No scleral icterus. No injection or drainage. CARDIOVASCULAR: Regular rate and rhythm without murmurs, gallops, or rubs. RESPIRATORY: Breath sounds equal bilaterally. No accessory muscle use. GASTROINTESTINAL: Abdomen soft, non-tender, nondistended. MUSCULOSKELETAL: No cyanosis, or edema. SKIN: Warm and dry. NEURO: No focal neurological deficitis. Results - Labs CBC & Chem 7: 01/10/18 04:08 01/10/18 04:08 Labs: Laboratory Results - last 24 hr 01/09/18 01/09/18 01/09/18 12:15 12:15 12:15 WBC RBC Hgb Hct MCV MCH MCHC RDW Plt Count MPV Prelim Diff (Auto) Neut % (Auto) Lymph % (Auto) Knott % (Auto) Eos % (Auto) Baso % (Auto) Neut # (Auto) Lymph # (Auto) Knott # (Auto) Eos # (Auto) Baso # (Auto) CBC Comment WBC Differential Total Counted Neutrophils % (Manual) Seg Neuts % (Manual) Band Neutrophils % Band Neuts % (Manual) Lymphocytes % Lymphocytes % (Manual) Monocytes % Monocytes % (Manual) Eosinophils % Myelocytes % (Man) Neutrophils # (Manual) Abs Neuts (Manual) Differential Comment Platelet Estimate Platelet Morphology Plt Morphology Comment Ovalocytes PT INR APTT Sodium 143 Potassium 4.2 Chloride 107 Carbon Dioxide 27.4 Anion Gap 9 BUN 10 Creatinine 1.03 Estimated GFR 71 L Random Glucose 87 Lactic Acid 1.6 Calcium 8.7 Magnesium 1.7 Total Bilirubin 0.8 AST 27 ALT 25 Alkaline Phosphatase 116 Total Creatine Kinase 51 Troponin I 0.04 B-Natriuretic Peptide 252 H Total Protein 7.8 Albumin 3.8 TSH Thyroxine (T4) Free T3 Nasal Screen MRSA (PCR) 01/09/18 01/09/18 01/09/18 12:15 12:20 16:40 WBC 8.1 RBC 4.48 L Hgb 12.7 L Hct 39.4 MCV 88.1 MCH 28.4 MCHC 32.3 RDW 14.7 Plt Count 91 L MPV 11.4 H Prelim Diff (Auto) Neut % (Auto) 47.8 Lymph % (Auto) 45.3 H Knott % (Auto) 5.8 Eos % (Auto) 0.6 Baso % (Auto) 0.5 Neut # (Auto) 3.9 Lymph # (Auto) 3.7 Knott # (Auto) 0.5 Eos # (Auto) 0.0 Baso # (Auto) 0.0 CBC Comment AUTO DIFF WBC Differential Total Counted 100 Neutrophils % (Manual) 56 Seg Neuts % (Manual) Band Neutrophils % 1 Band Neuts % (Manual) Lymphocytes % 39 Lymphocytes % (Manual) Monocytes % 3 Monocytes % (Manual) Eosinophils % 1 Myelocytes % (Man) Neutrophils # (Manual) 4.6 Abs Neuts (Manual) Differential Comment FINAL DIFF MANUAL Platelet Estimate LOW L Platelet Morphology Plt Morphology Comment ENLARGED H Ovalocytes 1+ H PT 10.0 INR 1.0 APTT 29.9 Sodium Potassium Chloride Carbon Dioxide Anion Gap BUN Creatinine Estimated GFR Random Glucose Lactic Acid Calcium Magnesium Total Bilirubin AST ALT Alkaline Phosphatase Total Creatine Kinase Troponin I B-Natriuretic Peptide Total Protein Albumin TSH Thyroxine (T4) Free T3 Nasal Screen MRSA (PCR) MRSA NOT DETECTED 01/09/18 01/10/18 01/10/18 17:44 02:21 04:08 WBC 6.8 RBC 4.35 L Hgb 12.5 L Hct 37.8 L MCV 86.9 MCH 28.7 MCHC 33.0 RDW 14.9 Plt Count 82 L MPV 11.8 H Prelim Diff (Auto) Slide review pending Neut % (Auto) 76.8 H Lymph % (Auto) 21.4 Knott % (Auto) 1.7 Eos % (Auto) 0.0 Baso % (Auto) 0.1 Neut # (Auto) 5.2 Lymph # (Auto) 1.5 Knott # (Auto) 0.1 Eos # (Auto) 0.0 Baso # (Auto) 0.0 CBC Comment WBC Differential Manual diff final Total Counted Neutrophils % (Manual) Seg Neuts % (Manual) 77 H Band Neutrophils % Band Neuts % (Manual) 4 Lymphocytes % Lymphocytes % (Manual) 14 Monocytes % Monocytes % (Manual) 4 Eosinophils % Myelocytes % (Man) 1 H Neutrophils # (Manual) Abs Neuts (Manual) 5.6 Differential Comment . Platelet Estimate Low L Platelet Morphology Enlarged H Plt Morphology Comment Ovalocytes 1+ H PT INR APTT Sodium Potassium Chloride Carbon Dioxide Anion Gap BUN Creatinine Estimated GFR Random Glucose Lactic Acid Calcium Magnesium Total Bilirubin AST ALT Alkaline Phosphatase Total Creatine Kinase Troponin I 0.03 Less than 0.02 L B-Natriuretic Peptide Total Protein Albumin TSH Thyroxine (T4) Free T3 Nasal Screen MRSA (PCR) 01/10/18 04:08 WBC RBC Hgb Hct MCV MCH MCHC RDW Plt Count MPV Prelim Diff (Auto) Neut % (Auto) Lymph % (Auto) Knott % (Auto) Eos % (Auto) Baso % (Auto) Neut # (Auto) Lymph # (Auto) Knott # (Auto) Eos # (Auto) Baso # (Auto) CBC Comment WBC Differential Total Counted Neutrophils % (Manual) Seg Neuts % (Manual) Band Neutrophils % Band Neuts % (Manual) Lymphocytes % Lymphocytes % (Manual) Monocytes % Monocytes % (Manual) Eosinophils % Myelocytes % (Man) Neutrophils # (Manual) Abs Neuts (Manual) Differential Comment Platelet Estimate Platelet Morphology Plt Morphology Comment Ovalocytes PT INR APTT Sodium 142 Potassium 3.8 Chloride 102 Carbon Dioxide 31.4 Anion Gap 9 BUN 17 Creatinine 1.32 H Estimated GFR 53 L Random Glucose 133 H Lactic Acid Calcium 8.7 Magnesium Total Bilirubin 0.7 AST 15 ALT 19 Alkaline Phosphatase 98 Total Creatine Kinase Troponin I B-Natriuretic Peptide Total Protein 6.8 Albumin 3.1 L TSH 1.300 Thyroxine (T4) 11.8 Free T3 1.44 L Nasal Screen MRSA (PCR) Assessment and Plan - Plan 72 year old male admitted with A-fib RVR, CHF Exacerbation, HTN Urgency, and respiratory failure with hypoxia. Chest pain Resolved Negative CTA of chest for Pulmonary Embolus Negative ACS workup Aspirin daily When necessary oxygen When necessary morphine for pain When necessary nitroglycerin Follow on telemetry Cardiology following Hypoxia Oxygen supplementation CHF A-fib RVR COPD Hypoxia A. fib RVR has resolved Continue p.o. diltiazem oxygen supplementation Continue baseline Lasix treatment of 40 mg p.o. daily Discontinue esmolol drip Monitor on telemetry Albuterol on an as-needed basis COPD is not exacerbated to a degree more than enough to justify steroids or antibiotics Hypertensive urgency on hypertension Continue baseline treatment Follow blood pressures Adjust treatments as needed Esmolol drip As needed clonidine Hyperlipidemia Continue present treatment Follow as an outpatient Hx of CVA Leukemia Osteoarthritis GERD Inguinal Hernia No exacerbations of these conditions No change in baseline treatments Hyperthyroidism Continue baseline treatment and follow clinically Check T3, T4, and TSH with next lab draw DVT prophylaxis SCDs and Lovenox Discharge planning possible discharge if cleared by cardiology
[2018-01-10] MEDS ORDERED: IMBRUVICA 140 MG PO SCH (12:00)
--- NOTE | 2018-01-10 14:48 | P.DS ---
Date of admission: 01/09/18 14:35 Primary care physician: No Primary Care Physician Brief History from admission: From H&P: "Mr. Ramos is a 72 year old male. He came into the hospital today secondary to shortness of breath, dizziness, and chest pain. He has baseline atrial fibrillation. He is found to be in atrial for ablation RVR which is likely contributory to his dizziness and shortness of breath. Pre-existing conditions include CHF COPD. Both of these conditions are mildly exacerbated contributory but the main cause of his problem seems to be his RVR. Chest pain is concerning for myocardial infarction versus pulmonary embolism. CTA of the chest has been obtained and report is pending. ACS workup is in process but no acute findings at this point. Patient has had some slowing of his heart rate on the esmolol drip in the ER. He says that his chest pain is no longer present. Chest pain had been present when he awoke from a nap this morning which was the onset of his rapid heart rate, dizziness, shortness of breath, and chest pain. COPD and CHF do not appear to be significantly exacerbated" DS: Diagnosis - Discharge Diagnosis (1) Atrial fibrillation with RVR Status: Acute (2) CHF exacerbation Status: Acute (3) COPD (chronic obstructive pulmonary disease) Status: Acute (4) Hypertensive urgency Status: Acute (5) Hypoxia Status: Acute DS: Medications - Discharge Medications Prescriptions: diltiazem HCl 240 mg PO DAILY #30 cap DS: Summary Hospital Course: Mr. Ramos is a 72 year old male. He has A-fib at baseline. He came into the ER in HTN Urgency and with A-fib RVR. His RVR was decompensating his CHF and COPD. He had come in early enough that his COPD and CHF Exacerbations could be quickly treated and fluid balance and respiratory balance are returned to baseline with additional diuretics and breathing treatments as well as oxygen supoort. He was admitted to the ICU with an Esmolol drip and diltiazem was promptly initiated for a new rate control agent and to improve his baseline BP control. These treatments resulted in resolution of his A-fib RVR overnight. He is off his Esmolol drip by the AM. When seen this morning patient is feeling at his baseline. He desires discharge to home. He is monitored through today and continues to remain stable. This was a quicker response than anticipated at time of admit. At this point, however, he is determined to be medically stable and is cleared for discharge to home. Diltiazem 240mg PO Daily is a new treatment for HTN Control and Rate control. All other treatments as listed are returned to prior baseline treatment doings. Discharge today. - Time Spent with Patient Total time spent providing and/or coordinating discharge services: Exam Vital signs: Vital Signs 01/10/18 00:00 01/10/18 01:00 01/10/18 02:00 Temperature 97.8 F Pulse Rate 75 73 73 Respiratory Rate 18 20 21 Blood Pressure 149/76 H 151/71 H 132/63 Pulse Oximetry 93 L 96 96 01/10/18 03:00 01/10/18 04:00 01/10/18 04:05 Temperature 98.3 F Pulse Rate 74 59 L Respiratory Rate 18 21 Blood Pressure 138/67 141/66 H Pulse Oximetry 95 96 01/10/18 04:30 01/10/18 05:01 01/10/18 05:30 Temperature Pulse Rate 60 63 61 Respiratory Rate 17 14 16 Blood Pressure 154/69 H 173/74 H 153/67 H Pulse Oximetry 96 97 97 01/10/18 06:00 01/10/18 06:24 01/10/18 06:30 Temperature Pulse Rate 61 56 L Respiratory Rate 14 15 Blood Pressure 140/67 151/69 H Pulse Oximetry 96 98 98 01/10/18 07:01 01/10/18 07:31 01/10/18 08:00 Temperature Pulse Rate 62 62 69 Respiratory Rate 15 20 Blood Pressure 166/67 H 121/55 L 127/70 Pulse Oximetry 99 93 L 93 L 01/10/18 08:15 01/10/18 08:30 01/10/18 09:00 Temperature 97.6 F Pulse Rate 66 64 Respiratory Rate 19 20 Blood Pressure 142/69 H 118/56 L Pulse Oximetry 93 L 92 L 01/10/18 09:30 01/10/18 09:39 01/10/18 10:00 Temperature Pulse Rate 56 L 61 Respiratory Rate 18 22 Blood Pressure 138/69 149/66 H Pulse Oximetry 92 L 95 96 01/10/18 10:30 01/10/18 11:00 01/10/18 11:30 Temperature Pulse Rate 58 L 60 61 Respiratory Rate 24 20 17 Blood Pressure 128/72 139/66 143/67 H Pulse Oximetry 95 94 L 94 L 01/10/18 12:00 01/10/18 12:24 Temperature 98.2 F Pulse Rate 62 69 Respiratory Rate 18 17 Blood Pressure 131/91 H Pulse Oximetry 94 L Intake & Output 01/09/18 01/10/18 01/10/18 18:59 06:59 18:59 Intake Total 900 / 900 Output Total 1500 / 1500 Balance -600 / -600 Weight 50 kg Intake: Oral 900 / 900 Output: Urine 1500 / 1500 Other: Date of Last Bowel Movement 01/09/18 01/09/18 # Bowel Movements 0 Weight On Admission 50 kg Results Labs on day of discharge: Labs from last 24 hours 01/10/18 01/10/18 01/10/18 04:08 04:08 02:21 WBC 6.8 RBC 4.35 L Hgb 12.5 L Hct 37.8 L MCV 86.9 MCH 28.7 MCHC 33.0 RDW 14.9 Plt Count 82 L MPV 11.8 H Prelim Diff (Auto) Slide review pending Neut % (Auto) 76.8 H Lymph % (Auto) 21.4 [place] % (Auto) 1.7 Eos % (Auto) 0.0 Baso % (Auto) 0.1 Neut # (Auto) 5.2 Lymph # (Auto) 1.5 [place] # (Auto) 0.1 Eos # (Auto) 0.0 Baso # (Auto) 0.0 CBC Comment WBC Differential Manual diff final Total Counted Neutrophils % (Manual) Seg Neuts % (Manual) 77 H Band Neutrophils % Band Neuts % (Manual) 4 Lymphocytes % Lymphocytes % (Manual) 14 Monocytes % Monocytes % (Manual) 4 Eosinophils % Myelocytes % (Man) 1 H Neutrophils # (Manual) Abs Neuts (Manual) 5.6 Differential Comment . Platelet Estimate Low L Platelet Morphology Enlarged H Plt Morphology Comment Ovalocytes 1+ H PT INR APTT Sodium 142 Potassium 3.8 Chloride 102 Carbon Dioxide 31.4 Anion Gap 9 BUN 17 Creatinine 1.32 H Estimated GFR 53 L Random Glucose 133 H Lactic Acid Calcium 8.7 Magnesium Total Bilirubin 0.7 AST 15 ALT 19 Alkaline Phosphatase 98 Total Creatine Kinase Troponin I Less than 0.02 L B-Natriuretic Peptide Total Protein 6.8 Albumin 3.1 L TSH 1.300 Thyroxine (T4) 11.8 Free T3 1.44 L Nasal Screen MRSA (PCR) 01/09/18 01/09/18 01/09/18 17:44 16:40 12:20 WBC 8.1 RBC 4.48 L Hgb 12.7 L Hct 39.4 MCV 88.1 MCH 28.4 MCHC 32.3 RDW 14.7 Plt Count 91 L MPV 11.4 H Prelim Diff (Auto) Neut % (Auto) 47.8 Lymph % (Auto) 45.3 H [place] % (Auto) 5.8 Eos % (Auto) 0.6 Baso % (Auto) 0.5 Neut # (Auto) 3.9 Lymph # (Auto) 3.7 [place] # (Auto) 0.5 Eos # (Auto) 0.0 Baso # (Auto) 0.0 CBC Comment AUTO DIFF WBC Differential Total Counted 100 Neutrophils % (Manual) 56 Seg Neuts % (Manual) Band Neutrophils % 1 Band Neuts % (Manual) Lymphocytes % 39 Lymphocytes % (Manual) Monocytes % 3 Monocytes % (Manual) Eosinophils % 1 Myelocytes % (Man) Neutrophils # (Manual) 4.6 Abs Neuts (Manual) Differential Comment FINAL DIFF MANUAL Platelet Estimate LOW L Platelet Morphology Plt Morphology Comment ENLARGED H Ovalocytes 1+ H PT INR APTT Sodium Potassium Chloride Carbon Dioxide Anion Gap BUN Creatinine Estimated GFR Random Glucose Lactic Acid Calcium Magnesium Total Bilirubin AST ALT Alkaline Phosphatase Total Creatine Kinase Troponin I 0.03 B-Natriuretic Peptide Total Protein Albumin TSH Thyroxine (T4) Free T3 Nasal Screen MRSA (PCR) MRSA NOT DETECTED 01/09/18 01/09/18 01/09/18 12:15 12:15 12:15 WBC RBC Hgb Hct MCV MCH MCHC RDW Plt Count MPV Prelim Diff (Auto) Neut % (Auto) Lymph % (Auto) [place] % (Auto) Eos % (Auto) Baso % (Auto) Neut # (Auto) Lymph # (Auto) [place] # (Auto) Eos # (Auto) Baso # (Auto) CBC Comment WBC Differential Total Counted Neutrophils % (Manual) Seg Neuts % (Manual) Band Neutrophils % Band Neuts % (Manual) Lymphocytes % Lymphocytes % (Manual) Monocytes % Monocytes % (Manual) Eosinophils % Myelocytes % (Man) Neutrophils # (Manual) Abs Neuts (Manual) Differential Comment Platelet Estimate Platelet Morphology Plt Morphology Comment Ovalocytes PT 10.0 INR 1.0 APTT 29.9 Sodium Potassium Chloride Carbon Dioxide Anion Gap BUN Creatinine Estimated GFR Random Glucose Lactic Acid 1.6 Calcium Magnesium Total Bilirubin AST ALT Alkaline Phosphatase Total Creatine Kinase Troponin I B-Natriuretic Peptide 252 H Total Protein Albumin TSH Thyroxine (T4) Free T3 Nasal Screen MRSA (PCR) 01/09/18 12:15 WBC RBC Hgb Hct MCV MCH MCHC RDW Plt Count MPV Prelim Diff (Auto) Neut % (Auto) Lymph % (Auto) [place] % (Auto) Eos % (Auto) Baso % (Auto) Neut # (Auto) Lymph # (Auto) [place] # (Auto) Eos # (Auto) Baso # (Auto) CBC Comment WBC Differential Total Counted Neutrophils % (Manual) Seg Neuts % (Manual) Band Neutrophils % Band Neuts % (Manual) Lymphocytes % Lymphocytes % (Manual) Monocytes % Monocytes % (Manual) Eosinophils % Myelocytes % (Man) Neutrophils # (Manual) Abs Neuts (Manual) Differential Comment Platelet Estimate Platelet Morphology Plt Morphology Comment Ovalocytes PT INR APTT Sodium 143 Potassium 4.2 Chloride 107 Carbon Dioxide 27.4 Anion Gap 9 BUN 10 Creatinine 1.03 Estimated GFR 71 L Random Glucose 87 Lactic Acid Calcium 8.7 Magnesium 1.7 Total Bilirubin 0.8 AST 27 ALT 25 Alkaline Phosphatase 116 Total Creatine Kinase 51 Troponin I 0.04 B-Natriuretic Peptide Total Protein 7.8 Albumin 3.8 TSH Thyroxine (T4) Free T3 Nasal Screen MRSA (PCR) Discharge Plan - Discharge Disposition Patient Disposition: Discharge Home - Discharge Condition Condition: Stable - Discharge Order Discharge Orders: Discharge Order (Routine); Ordered 01/10/18 Ordered By: Ramakrishna Alaniz - Discharge Details Anticipated Discharge Date/Time: 01/10/18 14:17 - Physicians Team Primary Care Provider: Primary Care Susan Guerrero Attending Provider: Ramakrishna Alaniz - Rxs /Orders / Referrals /Forms Prescriptions: New apixaban [Eliquis] 5 mg Tablet 5 mg PO BID RF: 0 aspirin 81 mg Tablet,Delayed Release (Dr/Ec) 81 mg PO DAILY RF: 0 carvedilol [Coreg] 6.25 mg Tablet 6.25 mg PO BID RF: 0 diltiazem HCl 240 mg Capsule,Extended Release 24hr 240 mg PO DAILY Qty: 30 RF: 0 furosemide 40 mg Tablet 40 mg PO DAILY RF: 0 lisinopril 5 mg Tablet 2.5 mg PO DAILY RF: 0 methimazole [Tapazole] 5 mg Tablet 5 mg PO DAILY RF: 0 pravastatin 10 mg Tablet 10 mg PO DAILY RF: 0 Referrals: Primary Care Physici,No [Primary Care Provider] - See Instructions
[2018-01-10] MEDS ORDERED: traZODone 100 MG Tablet PO PRN (21:00)
[2018-01-11] MEDS ORDERED: Sodium Bicarbonate 8.4% Inj 50 MEQ/50 ML Syringe IV.CONT ONE (15:56)
[2018-01-11] MEDS ORDERED: Calcium Chloride Inj 1 GM/10 ML Syringe IV.CONT ONE (15:56)
[2018-01-11] MEDS ORDERED: Norepinephrine Inj 4 MG/4 ML Ampul IV.CONT ONE (15:56)
== END 2018-01-10 17:30 | disposition home or self-care (01) ==
LOC: UNDODISIN → NEDA 16:31 → HIMC 16:46
PROVIDERS: ADMIT Hospitalist; ATTEND Hospitalist

== ENCOUNTER 2018-03-16 21:05 | Inpatient (IN) ==
--- NOTE | 2018-03-16 21:56 | ED ---
HPI General Chief complaint: Extremity Injury, Lower Stated complaint: Left Foot Injury Time Seen by Provider: 03/16/18 21:41 History of Present Illness HPI narrative: 72-year-old male with history of atrial febrile for evaluation of left foot pain. He reports that it started 3 days ago. He does not recall any injury. He is noted to be in atrial fibrillation with RVR, rate in the 150s -180s. In retrospect he does report mild shortness of breath and palpitations over the past few days as well. According to his daughter is at bedside he lives alone, seems a little more confused than usual. He reports that he has been compliant with his numerous medications. According to chart review he is on Eliquis, diltiazem, as well as several other medications. He was seen here in late December for evaluation of atrial fibrillation with RVR. [facility] is a patient at the [facility]. No other complaints. Related Data Home Medications Medication Instructions Recorded Confirmed potassium chloride 20 meq PO DAILY 03/16/18 03/16/18 simvastatin 80 mg PO DAILY 03/16/18 03/16/18 Previous Rx's Medication Instructions Recorded apixaban [Eliquis] 5 mg PO BID tab 01/10/18 aspirin 81 mg PO DAILY tab 01/10/18 carvedilol [Coreg] 6.25 mg PO BID tab 01/10/18 diltiazem HCl 240 mg PO DAILY #30 cap 01/10/18 furosemide 40 mg PO DAILY tab 01/10/18 lisinopril 2.5 mg PO DAILY tab 01/10/18 methimazole [Tapazole] 5 mg PO DAILY tab 01/10/18 pravastatin 10 mg PO DAILY tab 01/10/18 Allergies Allergy/AdvReac Type Severity Reaction Status Date / Time No Known Allergies Allergy Unverified 03/16/18 22:16 Review of Systems ROS: all other systems reviewed are negative [facility] Medical History Medical History Afib (Acute) CHF (congestive heart failure) (Acute) COPD (chronic obstructive pulmonary disease) (Acute) CVA (cerebral vascular accident) (Acute) History of stroke (Acute) Hx of cardiac murmur (Acute) Hypertension (Acute) Leukemia (Acute) Surgical History Surgical History Hx of cholecystectomy (Acute) Social History Social History Smoking Status: Current every day smoker Tobacco Type: Cigarettes How Often Do You Have a Drink Containing Alcohol: Never Recent Travel in [facility] within the Last 8 Weeks: No Recent Out of Country Travel within the Last 8 Weeks: No Exam Narrative Exam Narrative: GENERAL: This is a chronically ill-appearing male who is in no acute distress. Noted to be febrile with a rectal temperature 106. Tachycardic. SKIN: Warm and dry. There is a focal area of skin redness on the medial dorsal aspect of the left foot. Significant tenderness to palpation. No crepitus. No open wounds. HEAD: Atraumatic. Normocephalic. EYES: Pupils equal and round. No scleral icterus. No injection or drainage. ENT: No nasal bleeding or discharge. Mucous membranes pink and moist. NECK: Trachea midline. No JVD. CARDIOVASCULAR: Regular rate and rhythm. No murmur appreciated. RESPIRATORY: No accessory muscle use. Clear to auscultation. Breath sounds equal bilaterally. GASTROINTESTINAL: Abdomen soft, non-tender, nondistended. Hepatic and splenic margins not palpable. MUSCULOSKELETAL: No obvious deformities. No clubbing. No cyanosis. No edema. Dorsalis pedis pulses are intact. NEUROLOGICAL: Awake and alert. No obvious cranial nerve deficits. Motor grossly within normal limits. Normal speech. Mildly tremulous. Course Initial Documented Vital Signs Pulse Rate 156 H 03/16/18 21:30 Respiratory Rate 18 03/16/18 21:30 Blood Pressure 165/65 H 03/16/18 21:30 Pulse Oximetry 93 L 03/16/18 21:30 Last Documented Vital Signs Temperature 106.0 F H 03/16/18 22:12 Pulse Rate 145 H 03/16/18 22:12 Respiratory Rate 20 03/16/18 22:12 Blood Pressure 123/77 03/16/18 22:12 Pulse Oximetry 98 03/16/18 22:12 Medical Decision Making MAHAD Attestation MAHAD supervised visit: Yes Attestation: The history, exam, and medical decision-making in the associated mid-level provider note were completed with my assistance. I reviewed and agree with the findings presented. I attest that I had a [id number] encounter with the patient on the same day, and personally performed and documented my assessment and findings in the medical record. *My assessment and Findings: 72-year-old male presents emergency department foot pain, found to be A. fib RVR and marked fever, likely sepsis. He is a lot of pain given the minimal erythematous changes in his foot. He has tenderness outside the area of erythema raising the possibility of early necrotizing soft tissue infection. I think this is however unlikely. Nonetheless she is given aggressive antibiotic coverage, will admit him to the unit for very close monitoring. Heart rate remains elevated, possibly related to fever. Was given diltiazem and was placed on a drip. He was given IV fluid rehydration however he is a known decreased EF so was given 1 L, with plan frequent reassessment. I spoke with Dr. Diaz, will admit to the ICU. [facility] Narrative Medical decision making narrative: The patient was placed on ECG monitoring pulse oximetry. A 12 EKG was obtained revealing atrial fibrillation with RVR. Lab work, chest x-ray, left foot and tibia-fibula x-rays have been ordered. Broad-spectrum antibiotics were ordered including vancomycin, zosyn, clindamyci. I reviewed his records. He had an echocardiogram in 2016 revealing an ejection fraction of 30-35%, therefore he will be hydrated cautiously. 1 L of chilled normal saline has been ordered. Tylenol will be administered. Patient was given a 20 mg dose of diltiazem with minimal change in his heart rate. Therefore additional bolus was ordered and the patient was started on diltiazem drip. Medical Screen Exam Complete: Yes Emergency Medical Condition: Yes Lab Data Lab results reviewed: Yes I reviewed the patient's lab results. Result diagrams: 03/16/18 21:00 03/16/18 21:00 Lab Results 03/16/18 03/16/18 03/16/18 Range/Units 21:00 21:00 21:00 WBC 6.9 (4.0-11.0) th/mm3 RBC 3.92 L (4.50-5.90) mil/mm3 Hgb 10.5 L (13.0-17.0) gm/dL Hct 32.4 L (39.0-51.0) % MCV 82.6 (80.0-100.0) fL MCH 26.8 L (27.0-34.0) pg MCHC 32.4 (32.0-36.0) % RDW 14.7 (11.6-17.2) % Plt Count 167 (150-450) th/mm3 MPV 10.7 (7.0-11.0) fL Neut % (Auto) 83.6 H (16.0-70.0) % Lymph % (Auto) 10.6 (9.0-44.0) % [place] % (Auto) 5.2 (0.0-8.0) % Eos % (Auto) 0.0 (0.0-4.0) % Baso % (Auto) 0.6 (0.0-2.0) % Neut # (Auto) 5.8 (1.8-7.7) th/mm3 Lymph # (Auto) 0.7 L (1.0-4.8) th/mm3 [place] # (Auto) 0.4 (0.0-0.9) th/mm3 Eos # (Auto) 0.0 (0.0-0.4) th/mm3 Baso # (Auto) 0.0 (0.0-0.2) th/mm3 WBC Differential . Differential Comment Auto diff final PT (9.8-11.6) sec INR Ratio APTT (24.3-30.1) sec Sodium 138 (136-145) meq/L Potassium 4.2 (3.5-5.1) meq/L Chloride 103 (98-107) meq/L Carbon Dioxide 22.6 (21.0-32.0) meq/L Anion Gap 12 (5-15) meq/L BUN 18 (7-18) mg/dL Creatinine 1.37 H (0.60-1.30) mg/dL Estimated GFR 51 L (>89) mL/min Random Glucose 122 H (74-106) mg/dL Lactic Acid 3.1 H (0.4-2.0) mmol/L Calcium 7.8 L (8.5-10.1) mg/dL Total Bilirubin 0.7 (0.2-1.0) mg/dL AST 39 H (15-37) U/L ALT 25 (12-78) U/L Alkaline Phosphatase 146 H (45-117) U/L Total Creatine Kinase 117 (39-308) U/L Troponin I 0.08 H (0.02-0.05) ng/mL Total Protein 7.6 (6.4-8.2) g/dL Albumin 2.8 L (3.4-5.0) g/dL 03/16/18 Range/Units 21:00 WBC (4.0-11.0) th/mm3 RBC (4.50-5.90) mil/mm3 Hgb (13.0-17.0) gm/dL Hct (39.0-51.0) % MCV (80.0-100.0) fL MCH (27.0-34.0) pg MCHC (32.0-36.0) % RDW (11.6-17.2) % Plt Count (150-450) th/mm3 MPV (7.0-11.0) fL Neut % (Auto) (16.0-70.0) % Lymph % (Auto) (9.0-44.0) % [place] % (Auto) (0.0-8.0) % Eos % (Auto) (0.0-4.0) % Baso % (Auto) (0.0-2.0) % Neut # (Auto) (1.8-7.7) th/mm3 Lymph # (Auto) (1.0-4.8) th/mm3 [place] # (Auto) (0.0-0.9) th/mm3 Eos # (Auto) (0.0-0.4) th/mm3 Baso # (Auto) (0.0-0.2) th/mm3 WBC Differential Differential Comment PT 13.3 H (9.8-11.6) sec INR 1.3 Ratio APTT 31.5 H (24.3-30.1) sec Sodium (136-145) meq/L Potassium (3.5-5.1) meq/L Chloride (98-107) meq/L Carbon Dioxide (21.0-32.0) meq/L Anion Gap (5-15) meq/L BUN (7-18) mg/dL Creatinine (0.60-1.30) mg/dL Estimated GFR (>89) mL/min Random Glucose (74-106) mg/dL Lactic Acid (0.4-2.0) mmol/L Calcium (8.5-10.1) mg/dL Total Bilirubin (0.2-1.0) mg/dL AST (15-37) U/L ALT (12-78) U/L Alkaline Phosphatase (45-117) U/L Total Creatine Kinase (39-308) U/L Troponin I (0.02-0.05) ng/mL Total Protein (6.4-8.2) g/dL Albumin (3.4-5.0) g/dL Imaging Data Radiologist's impression: Chest X-Ray 03/16/18 21:50 CONCLUSION: Questionable mild interstitial opacities in the lower lung zones bilaterally. No focal airspace consolidation is present and there is no pleural effusion. Foot X-Ray 03/16/18 21:50 CONCLUSION: No acute left foot abnormality is identified. 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 Tibia/Fibula X-Ray 03/16/18 22:08 CONCLUSION: No acute left leg abnormality is identified. Discharge Plan Physicians Team ED Provider: Rod Amezcua ED Midlevel Provider: Juan Carlos Ruiz Primary Care Provider: [facility],Physician 's Rxs /Orders / Referrals /Forms Prescriptions: No Action furosemide 40 mg Tablet 40 mg PO DAILY RF: 0 carvedilol [Coreg] 6.25 mg Tablet 6.25 mg PO BID RF: 0 diltiazem HCl 240 mg Capsule,Extended Release 24hr 240 mg PO DAILY Qty: 30 RF: 0 aspirin 81 mg Tablet,Delayed Release (Dr/Ec) 81 mg PO DAILY RF: 0 pravastatin 10 mg Tablet 10 mg PO DAILY RF: 0 methimazole [Tapazole] 5 mg Tablet 5 mg PO DAILY RF: 0 lisinopril 5 mg Tablet 2.5 mg PO DAILY RF: 0 apixaban [Eliquis] 5 mg Tablet 5 mg PO BID RF: 0 potassium chloride 20 mEq Tablet Extended Release 20 meq PO DAILY RF: 0 simvastatin 80 mg Tablet 80 mg PO DAILY RF: 0 Discharge Interventions Interventions: Vital Signs Last Done: 03/16/18 21:34 Status ED Status: With Doctor
[2018-03-16] MEDS ORDERED: Acetaminophen 325 MG Tablet PO ONE (21:57)
[2018-03-16] MEDS ORDERED: Sod Chloride 0.9% Inj 1,000 ML IV.SIG SCH (22:00)
[2018-03-16] MEDS ORDERED: Piperacil/Tazo 3.375 GM Premix 50 ML IV.SIG ONE (22:10)
[2018-03-16] MEDS ORDERED: Vancomycin Inj 1 GM/200 ML PIGGYBACK IV.SIG ONE (22:10)
[2018-03-16] MEDS ORDERED: Clindamycin 900 mg/NS Premix 900 MG/50 ML PIGGYBACK IV.SIG ONE (22:11)
[2018-03-16] MEDS ORDERED: Vancomycin Inj 1,000 MG in Sodium Chlor 0.9% Inj 250 ML IV.SIG ONE (22:15)
[2018-03-16] MEDS ORDERED: dilTIAZem Inj 50 MG/10 ML Vial IV.PUSH ONE (22:26)
[2018-03-16] MEDS ORDERED: dilTIAZem Inj 125 MG in Sodium Chlor 0.9% Inj 100 ML IV.CONT PRN (22:27)
[2018-03-16 22:33] LABS: Baso % (Auto) 0.6 % (0.0-2.0); Hematocrit 32.4 % (39.0-51.0); Hemoglobin 10.5 gm/dL (13.0-17.0); Lymph # (Auto) 0.7 th/mm3 (1.0-4.8); Lymph % (Auto) 10.6 % (9.0-44.0); Mean Corpuscular HGB Conc 32.4 % (32.0-36.0); Mean Corpuscular Hemoglobin 26.8 pg (27.0-34.0); Mean Corpuscular Volume 82.6 fL (80.0-100.0); Mean Platelet Volume 10.7 fL (7.0-11.0); Mono # (Auto) 0.4 th/mm3 (0.0-0.9); Mono % (Auto) 5.2 % (0.0-8.0); Neut # (Auto) 5.8 th/mm3 (1.8-7.7); Neut % (Auto) 83.6 % (16.0-70.0); Platelet Count 167 th/mm3 (150-450); Red Blood Count 3.92 mil/mm3 (4.50-5.90); Red Cell Distribution Width 14.7 % (11.6-17.2); White Blood Count 6.9 th/mm3 (4.0-11.0)
[2018-03-16 22:55] LABS: Activated Partial Thrombo Time 31.5 sec (24.3-30.1); INR 1.3 Ratio; Prothrombin Time 13.3 sec (9.8-11.6)
--- NOTE | 2018-03-16 23:02 | XR ---
EXAM DATE: 03/16/2018 10:59 PM EDT AGE/SEX: 72 years / Male INDICATIONS: Shortness of breath, fever. CLINICAL DATA: This is the patient's initial encounter. Patient reports that signs and symptoms have been present for 1 day and indicates a pain score of 0/10. MEDICAL/SURGICAL HISTORY: Hypertension. Leukemia. Chronic obstructive pulmonary disease. Smo ker. Congestive heart failure. None. COMPARISON: [facility] [place], CHEST SINGLE AP, 01/09/2018. . FINDINGS: AP view of the chest demonstrates a normal-sized cardiac silhouette with calcification of the aorta. Subtle interstitial opacities are present in the lower lung zones bilaterally with a reticular to ret icular nodular appearance. No pleural effusion or pneumothorax is identified. The bones and soft tiss ues demonstrate no acute finding. There is stable mineralization in the soft tissues adjacent to the greater tuberosity. CONCLUSION: Questionable mild interstitial opacities in the lower lung zones bilaterally. No focal airspace conso lidation is present and there is no pleural effusion. Electronically signed by: Saravanan Garcia MD 03/16/2018 11:01 PM EDT
--- NOTE | 2018-03-16 23:04 | XR ---
EXAM DATE: 03/16/2018 11:00 PM EDT AGE/SEX: 72 years / Male INDICATIONS: Left foot pain, no trauma. CLINICAL DATA: This is the patient's initial encounter. Patient reports that signs and symptoms have been present for 1 week and indicates a pain score of 10/10. MEDICAL/SURGICAL HISTORY: Hypertension. Leukemia. Chronic obstructive pulmonary disease. Con gestive heart failure. Smoker. None. COMPARISON: No prior exams available for comparison. FINDINGS: 4 views of the left foot demonstrate no fracture or dislocation. There is joint space narrowing and o steophytes at the first metatarsophalangeal joint. Mild hallux valgus is present. Lisfranc joint appe ars intact. No soft tissue abnormality or radiopaque foreign body is identified. CONCLUSION: No acute left foot abnormality is identified. 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 Electronically signed by: Saravanan Garcia MD 03/16/2018 11:03 PM EDT
--- NOTE | 2018-03-16 23:05 | XR ---
EXAM DATE: 03/16/2018 11:02 PM EDT AGE/SEX: 72 years / Male INDICATIONS: Left leg pain, no trauma. CLINICAL DATA: This is the patient's initial encounter. Patient reports that signs and symptoms have been present for 1 week and indicates a pain score of 10/10. MEDICAL/SURGICAL HISTORY: Hypertension. Leukemia. Chronic obstructive pulmonary disease. Smo ker. Congestive heart failure. None. COMPARISON: No prior exams available for comparison. FINDINGS: 4 views of the left leg demonstrate no fracture or dislocation. Mineralization is within normal limit s. No soft tissue abnormality or radiopaque foreign body is identified. There is popliteal artery jeffry cification. CONCLUSION: No acute left leg abnormality is identified. Electronically signed by: Saravanan Garcia MD 03/16/2018 11:04 PM EDT
[2018-03-16 23:12] LABS: Alanine Aminotransferase 25 U/L (12-78); Albumin 2.8 g/dL (3.4-5.0); Anion Gap 12 meq/L (5-15); Aspartate Aminotransferase 39 U/L (15-37); Blood Urea Nitrogen 18 mg/dL (7-18); Calcium 7.8 mg/dL (8.5-10.1); Carbon Dioxide 22.6 meq/L (21.0-32.0); Chloride 103 meq/L (98-107); Glomerular Filtration Rate 51 mL/min (>89); Glucose,Random 122 mg/dL (74-106); Potassium 4.2 meq/L (3.5-5.1); Sodium 138 meq/L (136-145)
[2018-03-16 23:16] LABS: Alkaline Phosphatase 146 U/L (45-117); Creatine Kinase 117 U/L (39-308); Total Protein 7.6 g/dL (6.4-8.2); Troponin I 0.08 ng/mL (0.02-0.05)
[2018-03-16] MEDS ORDERED: Sod Chloride 0.9% Inj 1,000 ML IV.CONT SCH (23:45)
--- NOTE | 2018-03-16 23:47 | P.HPCC ---
History of Present Illness Primary Care Physician: [facility] History of Present Illness: 72-year-old male with history of atrial febrile presents for an evaluation of left foot pain. He reports that it started 3 days ago. He does not recall any injury. In the emergency department he was noted to be in atrial fibrillation with RVR, rate in the 150s-180s. In retrospect he does report mild shortness of breath and palpitations over the past few days as well. He reports that he has been compliant with his numerous medications. According to chart review he is on Eliquis, diltiazem, as well as several other medications. He was seen here in late December for evaluation of atrial fibrillation with RVR. [facility] No other complaints. Inpatient Certification: I certify that the inpatient services were ordered in accordance with Medicare regulations governing the order. This includes certification that hospital inpatient services are reasonable and necessary and in the case of services not specified as inpatient-only under 42 CFR 419.22(n), that they are appropriately provided as inpatient services in accordance to with the 2-midnight benchmark under 43 CFR 412.3(e) Review of Systems All other systems reviewed negative except as stated in HPI PMFSH - History History Provided By: Patient - Medical History Medical History: Medical History (Last Updated 03/16/18 @ 22:13 by Alen Delgado) Afib CHF (congestive heart failure) COPD (chronic obstructive pulmonary disease) CVA (cerebral vascular accident) History of stroke Hx of cardiac murmur Hypertension Leukemia - Surgical History Surgical History: Surgical History (Last Updated 03/16/18 @ 22:13 by Alen Delgado) Hx of cholecystectomy - Tobacco History Tobacco Use In Past 30 Days: Yes Smoking Status: Current every day smoker Tobacco Type: Cigarettes - Alcohol History How Often Do You Have a Drink Containing Alcohol: Never - Travel History Recent Travel in the [place] Within the Last 8 Weeks: No Recent Travel Out of the Country Within the Last 8 Weeks: No - Immunization History Tetanus Immunization: Unsure Hx Influenza Vaccine This Season: No Medications and Allergies Active Medications: Active Medications Sodium Chloride (Ns Inj) 1,000 mls @ 0 mls/hr IV.SIG BOLUS FREDRIKC Last Admin: 03/16/18 22:28 Dose: 999 mls/hr Diltiazem HCl 125 mg/ Sodium (Chloride) 125 mls @ 5 mls/hr IV.CONT TITRATE PRN ; Protocol PRN Reason: Per Protocol Diltiazem HCl 125 mg/ Sodium (Chloride) 125 mls @ 5 mls/hr IV.CONT TITRATE PRN ; Protocol PRN Reason: Per Protocol Last Admin: 03/16/18 23:01 Dose: 5 mg/hr, 5 mls/hr Sodium Chloride (Ns Flush) 2 ml IV.FLUSH PRN PRN PRN Reason: FLUSH AFTER USING IV ACCESS Allergies Allergy/AdvReac Type Severity Reaction Status Date / Time No Known Allergies Allergy Unverified 03/16/18 22:16 Home Medications Medication Instructions Recorded Confirmed Type potassium chloride 20 meq PO DAILY 03/16/18 03/16/18 History simvastatin 80 mg PO DAILY 03/16/18 03/16/18 History Results - Labs CBC & Chem 7: 03/16/18 21:00 03/16/18 21:00 Labs: Short CBC 03/16/18 Range/Units 21:00 WBC 6.9 (4.0-11.0) th/mm3 Hgb 10.5 L (13.0-17.0) gm/dL Hct 32.4 L (39.0-51.0) % Plt Count 167 (150-450) th/mm3 BMP 03/16/18 21:00 Sodium 138 Potassium 4.2 Chloride 103 Carbon Dioxide 22.6 BUN 18 Creatinine 1.37 H Calcium 7.8 L Cardiac Enzymes 03/16/18 Range/Units 21:00 Total Creatine Kinase 117 (39-308) U/L Troponin I 0.08 H (0.02-0.05) ng/mL Liver Function 03/16/18 Range/Units 21:00 Total Bilirubin 0.7 (0.2-1.0) mg/dL AST 39 H (15-37) U/L ALT 25 (12-78) U/L Alkaline Phosphatase 146 H (45-117) U/L Albumin 2.8 L (3.4-5.0) g/dL - Imaging Impressions Chest X-Ray 03/16/18 21:50 CONCLUSION: Questionable mild interstitial opacities in the lower lung zones bilaterally. No focal airspace consolidation is present and there is no pleural effusion. Foot X-Ray 03/16/18 21:50 CONCLUSION: No acute left foot abnormality is identified. 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 Tibia/Fibula X-Ray 03/16/18 22:08 CONCLUSION: No acute left leg abnormality is identified. Exam Vital signs: Vital Signs 03/16/18 21:30 03/16/18 21:34 03/16/18 22:12 Temperature 106.0 F H Pulse Rate 156 H 145 H 145 H Respiratory Rate 18 20 20 Blood Pressure 165/65 H 123/68 123/77 Pulse Oximetry 93 L 96 98 Intake & Output 03/16/18 03/16/18 03/17/18 06:59 18:59 06:59 Weight 70.76 kg - Constitutional no acute distress - Routine HEENT Exam Head: Present: normocephalic, atraumatic Eye: Present: PERRL ENT: Present: mucous membranes moist - Routine Neck Exam Present: supple, full ROM. Absent: JVD, carotid bruit - Routine Chest/Breast/Axilla Exam Chest wall: Absent: tenderness, mass - Routine Respiratory Exam Absent: accessory muscle use, rhonchi, stridor, wheezes - Routine Cardiovascular Exam Present: S1, S2, irregular rhythm, irregularly irregular - Routine Abdominal Exam Present: soft, normoactive bowel sounds. Absent: tenderness, distended - Routine Extremities Exam Present: edema. Absent: cyanosis, clubbing Comments: There is a focal area of skin redness on the medial dorsal aspect of the left foot. Significant tenderness to palpation. No crepitus. No open wounds. - Routine Skin Exam Present: erythema - Routine Neurological Exam Present: alert, oriented X3 Septic Shock Reassessment Septic shock perfusion: reassessment completed Caprini VTE Risk Assessment Caprini VTE Risk Assessment: Moderate/High Risk (score >= 2) Caprini Risk Assessment Model: Point Value = 1 Point Value = 2 Point Value = 3 Point Value = 5 Age 41-60 Minor surgery BMI > 25 kg/m2 Swollen legs Varicose veins or History of unexplained or recurrent spontaneous Oral contraceptives or hormone replacement Sepsis (< 1 month) Serious lung disease, including pneumonia (< 1 month) Abnormal pulmonary function Acute myocardial infarction Congestive heart failure (< 1 month) History of inflammatory bowel disease Medical patient at bed rest Age 61-74 Arthroscopic surgery Major open surgery (> 45 min) Laparoscopic surgery (> 45 min) Malignancy Confined to bed (> 72 hours) Immobilizing plaster cast Central venous access Age >= 75 History of VTE Family history of VTE Factor V Leiden Prothrombin [id number] Lupus anticoagulant Anticardiolipin antibodies Elevated serum homocysteine Heparin-induced thrombocytopenia Other congenital or acquired thrombophilia Stroke (< 1 month) Elective arthroplasty Hip, pelvis, or leg fracture Acute spinal cord injury (< 1 month) Prophylaxis Regimen: Total Risk Factor Score Risk Level Prophylaxis Regimen 0-1 Low Early ambulation 2 Moderate Order ONE of the following: *Sequential Compression Device (SCD) *Heparin 5000 units SQ BID 3-4 Higher Order ONE of the following medications: *Heparin 5000 units SQ TID *Enoxaparin/Lovenox 40 mg SQ daily (WT < 150 kg, CrCl > 30 mL/min) *Enoxaparin/Lovenox 30 mg SQ daily (WT < 150 kg, CrCl > 10-29 mL/min) *Enoxaparin/Lovenox 30 mg SQ BID (WT < 150 kg, CrCl > 30 mL/min) AND/OR *Sequential Compression Device (SCD) 5 or more Highest Order ONE of the following medications: *Heparin 5000 units SQ TID (Preferred with Epidurals) *Enoxaparin/Lovenox 40 mg SQ daily (WT < 150 kg, CrCl > 30 mL/min) *Enoxaparin/Lovenox 30 mg SQ daily (WT < 150 kg, CrCl > 10-29 mL/min) *Enoxaparin/Lovenox 30 mg SQ BID (WT < 150 kg, CrCl > 30 mL/min) AND *Sequential Compression Device (SCD) Assessment and Plan - Assessment and Plan Plan: Sepsis -Cellulitis -Broad-spectrum antibiotic -Follow-up cultures and de-escalate per sensitivity A. fib with RVR -IV fluid resuscitation -Continue Cardizem and carvedilol -Eliquis Hyperthyroid -Methimazole COPD -DuoNeb's as needed scheduled -No indication for steroids CHF -Hold lisinopril and diuretics in the setting of sepsis -Resume when indicated DVT GI prophylaxis -Teds SCDs -Subcu heparin -Pepcid 35 minutes of critical care
[2018-03-16] MEDS ORDERED: Bisacodyl 10 MG Supp RECTAL PRN (23:51)
[2018-03-16] MEDS ORDERED: Vancomycin Consult Pharmacy OTHER PRN (23:51)
[2018-03-16] MEDS ORDERED: HYDROmorphone PF Inj 1 MG/ML Ampul IV.PUSH PRN (23:51)
[2018-03-17] MEDS ORDERED: Sod Chloride 0.9% Inj 1,000 ML IV.SIG SCH (00:07)
[2018-03-17] MEDS: dilTIAZem Inj 125 MG in Sodium Chlor 0.9% Inj 100 ML IV.CONT PRN ×2 (00:30→13:07)
[2018-03-17] MEDS ORDERED: Vancomycin Inj 750 MG in Sodium Chlor 0.9% Inj 250 ML IV.SIG ONE (01:00)
[2018-03-17] MEDS ORDERED: HYDROmorphone PF Inj 2 MG/ML Vial IV.PUSH PRN (01:01)
[2018-03-17] MEDS: Chlorhexidine Gluconate 2% 1 Pack (2 Cloths) TOPICAL SCH (03:20)
[2018-03-17] MEDS ORDERED: Chlorhexidine Gluconate 2% 1 Pack (2 Cloths) TOPICAL PRN (04:00)
--- NOTE | 2018-03-17 08:27 | P.PNCC ---
Subjective Subjective Remarks/Hospital Course: 72yM with history of A fib presenting overnight to the ED with left foot pain x 3 days. On presentation, he was found to have left foot cellulitis, rapid A fib with a HR in the 150s-180s, and a rectal temp of 106F. He was given 2 bolus doses of cardizem and a liter of chilled saline, started on broad-spectrum antibiotics, and ultimately needed to be started on a cardizem drip. 03/17: No additional overnight events, temp has been 99F and HR controlled on cardizem drip. He complains of mild pain to his left foot and of feeling hungry. Objective Vital Signs / I&O: Vital Signs 03/16/18 21:30 03/16/18 21:34 03/16/18 22:12 Temperature 106.0 F H Pulse Rate 156 H 145 H 145 H Respiratory Rate 18 20 20 Blood Pressure 165/65 H 123/68 123/77 Pulse Oximetry 93 L 96 98 03/16/18 23:53 03/17/18 01:00 03/17/18 01:52 Temperature 99.3 F Pulse Rate 148 H 105 H Respiratory Rate 20 26 H Blood Pressure 118/54 L Pulse Oximetry 96 03/17/18 02:00 03/17/18 03:38 03/17/18 04:00 Temperature 99.0 F Pulse Rate 91 H 80 Respiratory Rate 20 Blood Pressure 94/58 L Pulse Oximetry 100 99 03/17/18 06:00 Temperature Pulse Rate 91 H Respiratory Rate Blood Pressure Pulse Oximetry Intake & Output 03/16/18 03/17/18 03/17/18 18:59 06:59 18:59 Intake Total 1847.5 / 1847.5 Balance 1847.5 / 1847.5 Weight 65.5 kg Intake: IV 1607.5 / 1607.5 Cleocin 900 mg/NS Premix 900 mg 50 / 50 In 50 ml @ 100 mls/hr IV.SIG ONCE ONE Rx#:[id number] Zosyn 3.375 GM Premix 50 ML @ 50 / 50 100 mls/hr IV.SIG ONCE ONE Rx#: [id number] NS Inj 1,000 ML @ Wide Open IV. 1000 / 1000 SIG BOLUS FREDRICK Rx#:[id number] Vancomycin Inj 1,000 MG In NS 250 / 250 Inj 250 ML @ 250 mls/hr IV.SIG ONCE ONE Rx#:[id number] Vancomycin Inj 750 MG In NS Inj 257.5 / 257.5 250 ML @ 250 mls/hr IV.SIG ONCE ONE Rx#:[id number] Oral 240 / 240 Other: Weight On Admission 65 kg Result Diagrams: 03/16/18 21:00 03/16/18 21:00 Objective Remarks: GEN: Well-appearing, no acute distress HEENT: NCAT, PERRL CARDIO: Irregularly irregular, HR in 60s-70s on satellite project site monitor PULM: Clear to auscultation bilaterally, no respiratory distress ABD: Soft and non-tender in all quadrants EXT: Warm and well-perfused NEURO: Awake and alert, conversational, answers questions appropriately, no focal neuro deficits SKIN: Subtle erythema to dorsum of left foot, mild tenderness, no crepitus, no swelling, no lymphangitic streaking Assessment and Plan - Assessment and Plan Plan: Sepsis -Cellulitis of left foot, currently no signs concerning for necrotizing soft tissue infection -Broad-spectrum antibiotics (vanco/ zosyn) -Follow-up cultures and de-escalate per sensitivity -Lactate cleared, no longer trending -Repeat labs this afternoon (did not have AM labs today as he came in late last night) -Rectal temp on arrival to ED documented as 106F (!) but has not had any additional fevers this high since then -Change dilaudid to oxycodone for PRN pain A. fib with RVR -s/p IV fluid resuscitation -Restart home PO meds (carvedilol, cardizem) and wean cardizem gtt off -Eliquis -Trop 0.08 x 2, no chest pain, do not need to continue trending Hyperthyroid -Methimazole -Check TFTs COPD -Duonebs PRN and scheduled -No acute exacerbation CHF -Hold lisinopril and diuretics in the setting of sepsis -Resume when indicated, likely tomorrow -Patient received a 1.8L IV crystalloid, now on cardiac diet with clear resuscitative endpoints, stop IVF DVT GI prophylaxis -SCDs -Does not need SQ heparin as he is on Eliquis -Does not need stress ulcer prophylaxis as he is tolerating cardiac diet Overall: Patient can be downgraded from [facility] once off cardizem gtt, likely tomorrow. Counseling/ Coordination of Care: Total critical care time: 31 minutes. This includes examining the patient, gathering history from someone other than the patient (i.e., chart review), discussing the patient's care with other providers, managing the patient's heart rate via IV and PO medications, reviewing all radiology studies, ordering and interpreting laboratory studies, managing the patient's pain medications, and documentation. All critical care time is separate and exclusive of procedures, teaching, and patient/ family updates.
[2018-03-17] MEDS: dilTIAZem CD 240 MG Capsule PO SCH (08:55)
[2018-03-17] MEDS: methIMAzole 5 MG Tablet PO SCH (08:56)
[2018-03-17] MEDS: Carvedilol 6.25 MG Tablet PO SCH ×2 (08:56→21:18)
[2018-03-17] MEDS: Senna/Docusate Sodium 8.6/50 MG Tablet PO SCH ×2 (08:57→21:18)
[2018-03-17] MEDS ORDERED: Famotidine PF Inj 20 MG/2 ML Vial IV.PUSH SCH (09:00)
--- NOTE | 2018-03-17 10:01 | ECG ---
Date Performed: 03/16/2018 Time Performed: 21:42:41 PTAGE: 72 years EKG: ATRIAL FIBRILLATION WITH RAPID VENTRICULAR RESPONSE WITH ABERRANT CONDUCTION OR VENTRICULAR PREMATURE COMPLEXES BORDERLINE RIGHT AXIS DEVIATION NONSPECIFIC ST & T-WAVE ABNORMALITY ABNORMAL RHY THM ECG PREVIOUS TRACING : 01/09/2018 12.09 DOCTOR: Rod Olson Interpretating Date/Time 03/17/2018 10:00:25
[2018-03-17 16:20] LABS: Baso % (Auto) 0.2 % (0.0-2.0); Hematocrit 29.4 % (39.0-51.0); Hemoglobin 9.7 gm/dL (13.0-17.0); Lymph # (Auto) 0.9 th/mm3 (1.0-4.8); Lymph % (Auto) 12.9 % (9.0-44.0); Mean Corpuscular Volume 81.8 fL (80.0-100.0); Mean Platelet Volume 10.4 fL (7.0-11.0); Mono # (Auto) 0.4 th/mm3 (0.0-0.9); Mono % (Auto) 6.1 % (0.0-8.0); Neut # (Auto) 5.7 th/mm3 (1.8-7.7); Neut % (Auto) 80.8 % (16.0-70.0); Platelet Count 147 th/mm3 (150-450); Red Blood Count 3.59 mil/mm3 (4.50-5.90); Red Cell Distribution Width 14.6 % (11.6-17.2)
[2018-03-17 16:29] LABS: Calcium 7.8 mg/dL (8.5-10.1); Carbon Dioxide 24.6 meq/L (21.0-32.0); Potassium 3.9 meq/L (3.5-5.1)
[2018-03-17 16:36] LABS: Free T4 (Free Thyroxine) 1.51 ng/dL (0.76-1.46)
[2018-03-17] MEDS ORDERED: Vancomycin Inj 1,250 MG in Sodium Chlor 0.9% Inj 250 ML IV.SIG SCH (18:00)
--- NOTE | 2018-03-17 18:40 | MB ---
cc: Aidan Avilez MD, Jan MD DATE: 03/17/2018 ATTENDING PHYSICIAN: Jaime Diaz MD REASON FOR CONSULTATION: Hematology consulted to render an opinion regarding a patient with chronic leukemia, admitted for sepsis. HISTORY OF PRESENT ILLNESS: The patient is a 72-year-old male who presented to the hospital complaining of increased left foot pain for 3-4 days. He denies any trauma. The pain was progressively getting worse and he came to the emergency room. He was found to have atrial fibrillation and a rapid ventricular rate. He was found to have sepsis and admitted to the intensive care unit. He has history of chronic lymphocytic leukemia and oncology was consulted for further evaluation. The patient is feeling better since starting on antibiotics. He denies any fever or chills. He denies any chest pain. He is on oxygen. He denies any cough. He denies any nausea, vomiting or abdominal pain. He denies any dysuria or hematuria. His foot pain is a little better. He stated that he was diagnosed with chronic lymphocytic leukemia about 3 years ago. He stated that he had a very high white blood cell count at that time. He also had significant lymphadenopathy. He is being managed by his oncologist at the [facility] in [facility]. He was started on ibrutinib about 3 years ago. He has tolerated it very well and was told that he is in remission. He is still taking the ibrutinib. PAST MEDICAL HISTORY: 1. Chronic lymphocytic leukemia. 2. Chronic atrial fibrillation diagnosed about 2-3 years ago. 3. Congestive heart failure. 4. Chronic obstructive pulmonary disease. 5. Stroke. 6. Heart murmur. 7. Hypertension. 8. Hypothyroidism. PAST SURGICAL HISTORY: 1. Cholecystectomy. 2. Left carotid endarterectomy. 3. Hernia repair. 4. Right hand surgery. 5. Left knee surgery. FAMILY HISTORY: Mother, grandmother and grandfather all had cancer. He has 4 children, all healthy. SOCIAL HISTORY: He smoked up to 4 packs a day since age 15 until about a week ago. He also quit alcohol. ALLERGIES: NO KNOWN DRUG ALLERGIES. CURRENT MEDICATIONS: 1. DuoNeb. 2. Eliquis. 3. Aspirin. 4. Dulcolax. 5. Carvedilol. 6. Diltiazem. 7. Tapazole. 8. Reglan. 9. Zosyn. 10. Vancomycin. 11. Pravastatin. 12. Jennifer-Colace. 13. Senokot. REVIEW OF SYSTEMS: CONSTITUTIONAL: As above. EYES: Negative. ENT: Negative. CARDIOVASCULAR: As above. RESPIRATORY: As above. GASTROINTESTINAL: Negative. GENITOURINARY: Negative. MUSCULOSKELETAL: As above. HEMATOLOGIC: As above. ENDOCRINE: Negative. DERMATOLOGIC: As above. NEUROLOGIC: Negative. PSYCHIATRIC: Negative. PHYSICAL EXAMINATION: VITAL SIGNS: Temperature 98.2, blood pressure 101/68. GENERAL: He is alert, oriented x 3, in no acute distress. HEENT: Atraumatic, normocephalic. Pupils are equal, round and reactive to light. Extraocular muscles are intact. No scleral icterus. Oropharynx with dry mucosa. No lesions, no thrush. NECK: No thyromegaly, no palpable mass. LYMPHATIC: No palpable cervical, clavicular or inguinal lymph nodes. He has shotty axillary lymph nodes. CARDIOVASCULAR: Irregularly irregular, S1, S2. LUNGS: Clear to auscultation bilaterally. ABDOMEN: Soft, nontender. Difficult to palpate the spleen. EXTREMITIES: No cyanosis, clubbing or edema. Left foot swollen and is tender with mild erythema. SKIN: As above. NEUROLOGIC: Nonfocal. LABORATORY DATA: WBC 7, hemoglobin 9.7, platelet count 147, absolute lymphocyte count 0.9. Creatinine 1.57. ASSESSMENT AND PLAN: 1. Chronic lymphocytic leukemia reportedly diagnosed about 3 years ago. He had significant leukocytosis and lymphadenopathy at that time. He was started on ibrutinib and had an excellent response. He has been followed by his oncologist at the [facility] in [facility]. He was told that he is in remission. He is still taking ibrutinib. His white blood cell count is normal. His absolute lymphocyte count is low. He has mild anemia. I cannot palpate significant adenopathy. There is no progression of disease noted at this time. I told him he could restart the ibrutinib when he is discharged from the hospital. He can continue to follow up with his oncologist after discharge. We will monitor his CBC while he is in the hospital. I do not anticipate he is going to develop progression of disease. 2. Sepsis. He has left foot cellulitis. He is currently on antibiotics. 3. Chronic atrial fibrillation. He is on Eliquis. 4. History of stroke. RECOMMENDATIONS: 1. Continue to hold ibrutinib while he is in the hospital. He can restart ibrutinib once he returns home. He has a followup with his oncologist in April. 2. Continue to monitor CBC while he is in the hospital. 3. Continue antibiotics per primary team. Thank you, Dr. Diaz, for asking me to see this patient. MD SUMAYA Peters/coleen , 05:03 PM , 05:19 PM JUAN PABLO
[2018-03-17] MEDS: Temazepam 15 MG Capsule PO PRN (21:25)
[2018-03-17 22:25] LABS: Hemoglobin A1c 5.6 % (4.3-6.0)
[2018-03-18 04:19] LABS: Baso % (Auto) 0.4 % (0.0-2.0); Eos % (Auto) 0.2 % (0.0-4.0); Hematocrit 29.1 % (39.0-51.0); Hemoglobin 9.4 gm/dL (13.0-17.0); Lymph # (Auto) 1.7 th/mm3 (1.0-4.8); Mean Corpuscular HGB Conc 32.2 % (32.0-36.0); Mean Corpuscular Hemoglobin 26.8 pg (27.0-34.0); Mean Corpuscular Volume 83.3 fL (80.0-100.0); Mean Platelet Volume 10.9 fL (7.0-11.0); Mono # (Auto) 0.5 th/mm3 (0.0-0.9); Neut # (Auto) 5.9 th/mm3 (1.8-7.7); Neut % (Auto) 72.4 % (16.0-70.0); Platelet Count 151 th/mm3 (150-450); Red Cell Distribution Width 14.9 % (11.6-17.2); White Blood Count 8.1 th/mm3 (4.0-11.0)
[2018-03-18 04:30] LABS: Activated Partial Thrombo Time 36.2 sec (24.3-30.1); INR 1.3 Ratio; Prothrombin Time 12.8 sec (9.8-11.6)
[2018-03-18] MEDS: Piperacil/Tazo 4.5 GM Premix 4.5 GM/100 ML BAG IV.SIG SCH ×3 (04:37→15:21)
[2018-03-18] MEDS: Chlorhexidine Gluconate 2% 1 Pack (2 Cloths) TOPICAL SCH (04:37)
[2018-03-18 04:50] LABS: Albumin 2.6 g/dL (3.4-5.0); Anion Gap 14 meq/L (5-15); Aspartate Aminotransferase 38 U/L (15-37); Blood Urea Nitrogen 37 mg/dL (7-18); Calcium 7.8 mg/dL (8.5-10.1); Carbon Dioxide 22.4 meq/L (21.0-32.0); Chloride 103 meq/L (98-107); Glomerular Filtration Rate 30 mL/min (>89); Glucose,Random 109 mg/dL (74-106); Magnesium 1.6 mg/dL (1.5-2.5); Potassium 3.9 meq/L (3.5-5.1); Sodium 139 meq/L (136-145)
[2018-03-18 04:54] LABS: Alanine Aminotransferase 23 U/L (12-78); Alkaline Phosphatase 125 U/L (45-117); Phosphorus 4.8 mg/dL (2.5-4.9); Total Protein 7.1 g/dL (6.4-8.2)
[2018-03-18] MEDS: Acetaminophen 325 MG Tablet PO PRN ×2 (07:13→21:35)
--- NOTE | 2018-03-18 07:53 | P.PNONC ---
Subjective Interval history: Patient is feeling better. His left foot pain has improved. He remains afebrile. He has no chest pain. Objective Vital Signs/Intake & Output: Vital Signs 03/17/18 08:00 03/17/18 10:00 03/17/18 11:05 Temperature 95.5 F L Pulse Rate 77 77 Respiratory Rate 10 L 16 Blood Pressure 116/69 Pulse Oximetry 100 03/17/18 12:00 03/17/18 14:00 03/17/18 16:00 Temperature 96.4 F L 98.2 F Pulse Rate 67 83 82 Respiratory Rate 13 18 Blood Pressure 115/59 L 101/68 Pulse Oximetry 100 98 03/17/18 18:00 03/17/18 19:20 03/17/18 20:00 Temperature 100.8 F H Pulse Rate 76 79 Respiratory Rate 24 17 Blood Pressure 107/63 Pulse Oximetry 97 03/17/18 21:00 03/17/18 22:00 03/18/18 00:00 Temperature 101.7 F H Pulse Rate 71 73 Respiratory Rate 17 Blood Pressure 90/52 L Pulse Oximetry 96 100 03/18/18 02:00 03/18/18 04:00 03/18/18 06:00 Temperature 101.7 F H Pulse Rate 70 68 68 Respiratory Rate 22 Blood Pressure 89/50 L Pulse Oximetry 93 L 03/18/18 07:35 Temperature Pulse Rate Respiratory Rate Blood Pressure Pulse Oximetry 94 L Intake & Output 03/17/18 03/18/18 03/18/18 18:59 06:59 18:59 Intake Total 1162.5 / 1162.5 Output Total 370 / 370 400 / 400 Balance 792.5 / 792.5 -400 / -400 Weight 65 kg Intake: IV 387.5 / 387.5 Cardizem Inj 125 MG In NS Inj 125 / 125 100 ML @ 5 MG/HR 5 mls/hr IV. CONT TITRATE PRN Rx#:[id number] Vancomycin Inj 1,250 MG In NS 262.5 / 262.5 Inj 250 ML @ 250 mls/hr IV.SIG Q18H FREDRICK Rx#:[id number] Oral 775 / 775 Output: Urine 370 / 370 400 / 400 Other: # Bowel Movements 0 Result Diagrams: 03/18/18 03:25 03/18/18 03:25 Laboratory Results: Laboratory Results - last 24 hr 03/17/18 03/17/18 03/17/18 09:00 15:50 15:50 WBC 7.0 RBC 3.59 L Hgb 9.7 L Hct 29.4 L MCV 81.8 MCH 27.0 MCHC 33.0 RDW 14.6 Plt Count 147 L MPV 10.4 Neut % (Auto) 80.8 H Lymph % (Auto) 12.9 [place] % (Auto) 6.1 Eos % (Auto) 0.0 Baso % (Auto) 0.2 Neut # (Auto) 5.7 Lymph # (Auto) 0.9 L [place] # (Auto) 0.4 Eos # (Auto) 0.0 Baso # (Auto) 0.0 WBC Differential . Differential Comment Auto diff final PT INR APTT Sodium 141 Potassium 3.9 Chloride 106 Carbon Dioxide 24.6 Anion Gap 10 BUN 29 H Creatinine 1.57 H Estimated GFR 44 L Random Glucose 135 H Hemoglobin A1c Calcium 7.8 L Phosphorus Magnesium Total Bilirubin AST ALT Alkaline Phosphatase Total Protein Albumin TSH Cancelled Free T4 1.51 H 03/17/18 03/17/18 03/17/18 15:50 15:50 15:50 WBC RBC Hgb Hct MCV MCH MCHC RDW Plt Count MPV Neut % (Auto) Lymph % (Auto) [place] % (Auto) Eos % (Auto) Baso % (Auto) Neut # (Auto) Lymph # (Auto) [place] # (Auto) Eos # (Auto) Baso # (Auto) WBC Differential Differential Comment PT INR APTT Sodium Potassium Chloride Carbon Dioxide Anion Gap BUN Creatinine Estimated GFR Random Glucose Hemoglobin A1c 5.6 Calcium Phosphorus Magnesium Total Bilirubin AST ALT Alkaline Phosphatase Total Protein Albumin TSH 0.864 Free T4 1.47 H 03/18/18 03/18/18 03/18/18 03:25 03:25 03:35 WBC 8.1 RBC 3.50 L Hgb 9.4 L Hct 29.1 L MCV 83.3 MCH 26.8 L MCHC 32.2 RDW 14.9 Plt Count 151 MPV 10.9 Neut % (Auto) 72.4 H Lymph % (Auto) 21.0 [place] % (Auto) 6.0 Eos % (Auto) 0.2 Baso % (Auto) 0.4 Neut # (Auto) 5.9 Lymph # (Auto) 1.7 [place] # (Auto) 0.5 Eos # (Auto) 0.0 Baso # (Auto) 0.0 WBC Differential . Differential Comment Auto diff final PT 12.8 H INR 1.3 APTT 36.2 H Sodium 139 Potassium 3.9 Chloride 103 Carbon Dioxide 22.4 Anion Gap 14 BUN 37 H Creatinine 2.20 H Estimated GFR 30 L Random Glucose 109 H Hemoglobin A1c Calcium 7.8 L Phosphorus 4.8 Magnesium 1.6 Total Bilirubin 0.7 AST 38 H ALT 23 Alkaline Phosphatase 125 H Total Protein 7.1 Albumin 2.6 L TSH Free T4 Culture Results: Microbiology 03/16/18 19:55 Aerobic Blood Culture - Preliminary Blood - Peripheral No growth in 1 day Anaerobic Blood Culture - Preliminary No growth in 1 day 03/16/18 21:05 Aerobic Blood Culture - Preliminary Blood - Peripheral No growth in 1 day Anaerobic Blood Culture - Preliminary No growth in 1 day Medications: Active Medications Generic Name Dose Route Start Last Admin Trade Name Freq PRN Reason Stop Dose Admin Acetaminophen 650 mg 03/16/18 23:51 03/18/18 07:13 Tylenol PO 650 mg Q6H PRN Administration PAIN 1-3 AND/OR FEVER >101F Apixaban 5 mg 03/17/18 09:00 03/17/18 21:18 Eliquis PO 5 mg BID FREDRICK Administration Aspirin 81 mg 03/17/18 09:00 03/17/18 08:56 Ecotrin PO 81 mg DAILY FREDRICK Administration Carvedilol 6.25 mg 03/17/18 09:00 03/17/18 21:18 Coreg PO 6.25 mg BID FREDRICK Administration Chlorhexidine Gluconate 3 pack 03/17/18 04:00 03/18/18 04:37 Chlorhexidine 2% Cloth TOPICAL 03/22/18 03:59 3 pack DAILY@0400 FREDRICK Administration Diltiazem HCl 240 mg 03/17/18 09:00 03/17/18 08:55 Cardizem Cd 24hr PO 240 mg DAILY FREDRICK Administration Sodium Chloride 1,000 mls @ 0 mls/hr 03/16/18 22:00 03/17/18 00:30 Ns Inj IV.SIG Infused BOLUS FREDRICK Infusion Wide Open Diltiazem HCl 125 mg/ Sodium 125 mls @ 5 mls/hr 03/16/18 22:25 03/17/18 19:00 Chloride IV.CONT 0 mg/hr TITRATE PRN 0 mls/hr Per Protocol Titration Protocol 5 MG/HR Diltiazem HCl 125 mg/ Sodium 125 mls @ 5 mls/hr 03/16/18 22:27 03/17/18 19:00 Chloride IV.CONT 0 mg/hr TITRATE PRN 0 mls/hr Per Protocol Titration Protocol 5 MG/HR Piperacillin/Tazobactam/Dextrose 4.5 gm in 100 mls @ 200 mls/hr 03/18/18 04: 00 03/18/18 04:37 Zosyn 4.5 Gm Premix IV.SIG 200 mls/hr Q6H FREDRICK Administration Vancomycin HCl 1,250 mg/ 262.5 mls @ 250 mls/hr 03/17/18 18:00 03/17/18 18:15 Sodium Chloride IV.SIG Infused Q18H FREDRICK Infusion Methimazole 5 mg 03/17/18 09:00 03/17/18 08:56 Tapazole PO 5 mg DAILY FREDRICK Administration Metoclopramide HCl 5 mg 03/17/18 00:00 03/18/18 06:39 Reglan Inj IV.PUSH 5 mg Q6HR FREDRICK Administration Protocol Ondansetron HCl 4 mg 03/16/18 23:51 03/17/18 06:20 Zofran Inj IV.PUSH 4 mg Q6H PRN Administration NAUSEA OR VOMITING Oxycodone HCl 5 mg 03/17/18 08:13 03/17/18 18:51 Roxicodone PO 5 mg Q6H PRN Administration PAIN SCALE 4 TO 6 MODERATE Pravastatin Sodium 10 mg 03/17/18 09:00 03/17/18 08:55 Pravachol PO 10 mg DAILY FREDRICK Administration Pravastatin Sodium 80 mg 03/17/18 09:00 03/17/18 08:55 Pravachol PO 80 mg DAILY FREDRICK Administration Senna/Docusate Sodium 1 tab 03/17/18 09:00 03/17/18 21:18 Jennifer-Colace PO Not Given BID FREDRICK Sodium Chloride 2 ml 03/17/18 09:00 03/17/18 21:19 Ns Flush IV.FLUSH 2 ml BID FREDRICK Administration Temazepam 15 mg 03/16/18 23:51 03/17/18 21:25 Restoril PO 15 mg HS PRN Administration INSOMNIA Objective Remarks: GENERAL: Well-nourished, well-developed patient. SKIN: Warm and dry. HEAD: Normocephalic. EYES: No scleral icterus. No injection or drainage. NECK: Supple, trachea midline. No JVD or lymphadenopathy. LYMPHATIC: No adenopathy. CARDIOVASCULAR: Regular rate and rhythm without murmurs. RESPIRATORY: Breath sounds equal bilaterally. No accessory muscle use. GASTROINTESTINAL: Abdomen soft, non-tender, nondistended. EXTREMITIES: No cyanosis, or edema. Left foot slightly swollen but improved. The cellulitis has improved. It is less tender. MUSCULOSKELETAL: Adequate muscle tone. NEUROLOGICAL: No obvious focal deficit. Awake, alert, and oriented x3. PSYCHIATRIC: Appropriate mood and affect; insight and judgment normal. Assessment/Plan (1) CLL (chronic lymphocytic leukemia) Code(s): C91.90 - Lymphoid leukemia, unspecified not having achieved remission Status: Acute - Plan 1. Chronic lymphocytic leukemia reportedly diagnosed about 3 years ago. He had significant leukocytosis and lymphadenopathy at that time. He was started on ibrutinib and had an excellent response. He has been followed by his oncologist at the [facility]. He was told that he is in remission. He is still taking ibrutinib. His white blood cell count is normal. His absolute lymphocyte count is low. He has mild anemia. I cannot palpate significant adenopathy. There is no progression of disease noted at this time. March 18, 2018: CBC remains stable. He still has anemia but hemoglobin is stable. WBC remains normal. No progression of disease noted. 2. Sepsis. He has left foot cellulitis. He is currently on antibiotics. The cellulitis has improved. 3. Chronic atrial fibrillation. He is on Eliquis. 4. History of stroke. RECOMMENDATIONS: 1. Continue to hold ibrutinib while he is in the hospital. He can restart ibrutinib once he returns home. He has a followup with his oncologist in April. 2. Continue to monitor CBC while he is in the hospital.
[2018-03-18] MEDS ORDERED: Sod Chloride 0.9% Inj 500 ML IV.SIG ONE (08:14)
[2018-03-18] MEDS: methIMAzole 5 MG Tablet PO SCH (08:35)
[2018-03-18] MEDS: Carvedilol 6.25 MG Tablet PO SCH ×2 (08:36→21:34)
[2018-03-18] MEDS: Senna/Docusate Sodium 8.6/50 MG Tablet PO SCH ×2 (08:37→21:34)
[2018-03-18] MEDS: dilTIAZem CD 240 MG Capsule PO SCH (08:38)
[2018-03-18] MEDS: Sodium Chloride 0.45 % Inj 1,000 ML IV.CONT SCH ×2 (09:40→21:34)
--- NOTE | 2018-03-18 09:53 | P.PN ---
Subjective Interval history: Consulted by critical care medicine for transfer care medical management with follow-up for sepsis, left foot cellulitis and acute kidney injury. Patient has no new complaints. Mild left foot pain. Discussed with nursing, creatinine level increasing with borderline low BP. Will hold transfer to floor. Patient received fluid bolus and will be restarted and IV hydration. Cautious IV hydration history of heart failure Physical Exam Vital signs: Vital Signs 03/17/18 10:00 03/17/18 11:05 03/17/18 12:00 Temperature 96.4 F L Pulse Rate 77 67 Respiratory Rate 16 13 Blood Pressure 115/59 L Pulse Oximetry 100 03/17/18 14:00 03/17/18 16:00 03/17/18 18:00 Temperature 98.2 F Pulse Rate 83 82 76 Respiratory Rate 18 Blood Pressure 101/68 Pulse Oximetry 98 03/17/18 19:20 03/17/18 20:00 03/17/18 21:00 Temperature 100.8 F H Pulse Rate 79 Respiratory Rate 24 17 Blood Pressure 107/63 Pulse Oximetry 97 96 03/17/18 22:00 03/18/18 00:00 03/18/18 02:00 Temperature 101.7 F H Pulse Rate 71 73 70 Respiratory Rate 17 Blood Pressure 90/52 L Pulse Oximetry 100 03/18/18 04:00 03/18/18 06:00 03/18/18 07:35 Temperature 101.7 F H Pulse Rate 68 68 Respiratory Rate 22 Blood Pressure 89/50 L Pulse Oximetry 93 L 94 L 03/18/18 08:00 03/18/18 09:42 Temperature 100.4 F H Pulse Rate 68 Respiratory Rate 22 21 Blood Pressure 107/59 L Pulse Oximetry 96 Intake & Output 03/17/18 03/18/18 03/18/18 18:59 06:59 18:59 Intake Total 1162.5 / 1162.5 100 / 100 Output Total 370 / 370 400 / 400 Balance 792.5 / 792.5 -300 / -300 Weight 65 kg Intake: IV 387.5 / 387.5 100 / 100 Cardizem Inj 125 MG In NS Inj 125 / 125 100 ML @ 5 MG/HR 5 mls/hr IV. CONT TITRATE PRN Rx#:[id number] Zosyn 4.5 GM Premix 4.5 gm In 100 / 100 100 ml @ 200 mls/hr IV.SIG Q6H FREDRICK Rx#:[id number] Vancomycin Inj 1,250 MG In NS 262.5 / 262.5 Inj 250 ML @ 250 mls/hr IV.SIG Q18H FREDRICK Rx#:[id number] Oral 775 / 775 Output: Urine 370 / 370 400 / 400 Other: # Bowel Movements 0 Narrative: GENERAL: Well-developed, well-nourished in no distress. On 3 L nasal cannula SKIN: Warm and dry. CARDIOVASCULAR: Irregularly irregular RESPIRATORY: No accessory muscle use. Clear to auscultation. Breath sounds equal bilaterally. GASTROINTESTINAL: Abdomen soft, non-tender, nondistended. MUSCULOSKELETAL: Extremities without clubbing, cyanosis, or edema. No obvious deformities. Slight erythema dorsum of left foot with tenderness NEUROLOGICAL: Awake and alert. No obvious cranial nerve deficits. Motor grossly within normal limits. Five out of 5 muscle strength in the arms and legs. Normal speech. PSYCHIATRIC: Appropriate mood and affect; insight and judgment normal. Results - Labs CBC & Chem 7: 03/18/18 03:25 03/18/18 03:25 Laboratory Results - last 24 hr 03/17/18 03/17/18 03/17/18 09:00 15:50 15:50 WBC 7.0 RBC 3.59 L Hgb 9.7 L Hct 29.4 L MCV 81.8 MCH 27.0 MCHC 33.0 RDW 14.6 Plt Count 147 L MPV 10.4 Neut % (Auto) 80.8 H Lymph % (Auto) 12.9 [place] % (Auto) 6.1 Eos % (Auto) 0.0 Baso % (Auto) 0.2 Neut # (Auto) 5.7 Lymph # (Auto) 0.9 L [place] # (Auto) 0.4 Eos # (Auto) 0.0 Baso # (Auto) 0.0 WBC Differential . Differential Comment Auto diff final PT INR APTT Sodium 141 Potassium 3.9 Chloride 106 Carbon Dioxide 24.6 Anion Gap 10 BUN 29 H Creatinine 1.57 H Estimated GFR 44 L Random Glucose 135 H Hemoglobin A1c Calcium 7.8 L Phosphorus Magnesium Total Bilirubin AST ALT Alkaline Phosphatase Total Protein Albumin TSH Cancelled Free T4 1.51 H 03/17/18 03/17/18 03/17/18 15:50 15:50 15:50 WBC RBC Hgb Hct MCV MCH MCHC RDW Plt Count MPV Neut % (Auto) Lymph % (Auto) [place] % (Auto) Eos % (Auto) Baso % (Auto) Neut # (Auto) Lymph # (Auto) [place] # (Auto) Eos # (Auto) Baso # (Auto) WBC Differential Differential Comment PT INR APTT Sodium Potassium Chloride Carbon Dioxide Anion Gap BUN Creatinine Estimated GFR Random Glucose Hemoglobin A1c 5.6 Calcium Phosphorus Magnesium Total Bilirubin AST ALT Alkaline Phosphatase Total Protein Albumin TSH 0.864 Free T4 1.47 H 03/18/18 03/18/18 03/18/18 03:25 03:25 03:35 WBC 8.1 RBC 3.50 L Hgb 9.4 L Hct 29.1 L MCV 83.3 MCH 26.8 L MCHC 32.2 RDW 14.9 Plt Count 151 MPV 10.9 Neut % (Auto) 72.4 H Lymph % (Auto) 21.0 [place] % (Auto) 6.0 Eos % (Auto) 0.2 Baso % (Auto) 0.4 Neut # (Auto) 5.9 Lymph # (Auto) 1.7 [place] # (Auto) 0.5 Eos # (Auto) 0.0 Baso # (Auto) 0.0 WBC Differential . Differential Comment Auto diff final PT 12.8 H INR 1.3 APTT 36.2 H Sodium 139 Potassium 3.9 Chloride 103 Carbon Dioxide 22.4 Anion Gap 14 BUN 37 H Creatinine 2.20 H Estimated GFR 30 L Random Glucose 109 H Hemoglobin A1c Calcium 7.8 L Phosphorus 4.8 Magnesium 1.6 Total Bilirubin 0.7 AST 38 H ALT 23 Alkaline Phosphatase 125 H Total Protein 7.1 Albumin 2.6 L TSH Free T4 Microbiology 03/16/18 19:55 Blood - Peripheral Aerobic Blood Culture - Preliminary No growth in 1 day 03/16/18 19:55 Blood - Peripheral Anaerobic Blood Culture - Preliminary No growth in 1 day 03/16/18 21:05 Blood - Peripheral Aerobic Blood Culture - Preliminary No growth in 1 day 03/16/18 21:05 Blood - Peripheral Anaerobic Blood Culture - Preliminary No growth in 1 day - Imaging ITS Impressions Chest X-Ray 03/16/18 21:50 CONCLUSION: Questionable mild interstitial opacities in the lower lung zones bilaterally. No focal airspace consolidation is present and there is no pleural effusion. Foot X-Ray 03/16/18 21:50 CONCLUSION: No acute left foot abnormality is identified. 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 Tibia/Fibula X-Ray 03/16/18 22:08 CONCLUSION: No acute left leg abnormality is identified. - Procedures none Assessment and Plan - Plan Sepsis -Cellulitis of left foot, currently no signs concerning for necrotizing soft tissue infection -Broad-spectrum antibiotics (vanco/ zosyn) -Follow-up cultures and de-escalate per sensitivity. Negative to date -Lactate cleared, no longer trending -Rectal temp 100.4 -Change dilaudid to oxycodone for PRN pain A. 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 -Worse today secondary to decreased oral intake and from sepsis. Also with borderline low BP. Fluid bolus ordered and start gentle IV hydration monitor for fluid overload DVT GI prophylaxis -SCDs -Does not need SQ heparin as he is on Eliquis -Does not need stress ulcer prophylaxis as he is tolerating cardiac diet Overall: Patient can be downgraded from IMC once BP more stable, likely tomorrow.
[2018-03-18] MEDS: Piperacil/Tazo 3.375 GM Premix 50 ML IV.SIG SCH (21:34)
[2018-03-18 21:36] LABS: Bilirubin,Urine Negative (Negative); Clarity,Urine Hazy (Clear); Color,Urine Yellow (Yellw/Straw); Glucose,Urine (UA) Negative (Negative); Leukocyte Esterase,Urine Trace (Negative); Mucus,Urine Few /lpf (Occasional); Nitrite,Urine Negative (Negative); Specific Gravity,Urine 1.026 (1.002-1.035); Squamous Epithelial Cell,Urine <1 /hpf (0-5)
[2018-03-18] MEDS: Temazepam 15 MG Capsule PO PRN (22:01)
[2018-03-19] MEDS: Chlorhexidine Gluconate 2% 1 Pack (2 Cloths) TOPICAL SCH (04:25)
[2018-03-19] MEDS: Piperacil/Tazo 3.375 GM Premix 50 ML IV.SIG SCH ×4 (04:25→22:01)
[2018-03-19 05:32] LABS: Calcium 7.5 mg/dL (8.5-10.1); Carbon Dioxide 21.2 meq/L (21.0-32.0); Magnesium 1.5 mg/dL (1.5-2.5); Potassium 3.6 meq/L (3.5-5.1)
[2018-03-19 05:34] LABS: Vancomycin,Random 16.7 Comment
[2018-03-19] MEDS ORDERED: Pharmacy Ordered Lab Info OTHER ONE (05:45)
[2018-03-19] MEDS: Acetaminophen 325 MG Tablet PO PRN (05:56)
[2018-03-19] MEDS: methIMAzole 5 MG Tablet PO SCH (08:30)
[2018-03-19] MEDS: Carvedilol 6.25 MG Tablet PO SCH ×2 (08:30→20:43)
[2018-03-19] MEDS: dilTIAZem CD 240 MG Capsule PO SCH (08:30)
[2018-03-19] MEDS: Senna/Docusate Sodium 8.6/50 MG Tablet PO SCH ×2 (08:30→20:45)
[2018-03-19] MEDS ORDERED: Vancomycin Inj 500 MG in Sodium Chlor 0.9% Inj 100 ML IV.SIG ONE (09:00)
[2018-03-19] MEDS: Sodium Chloride 0.45 % Inj 1,000 ML IV.CONT SCH ×2 (10:19→22:02)
--- NOTE | 2018-03-19 10:45 | P.PN ---
Subjective Interval history: Follow-up left foot cellulitis. States improved foot pain. BP also improved. Physical Exam Vital signs: Vital Signs 03/18/18 12:00 03/18/18 12:15 03/18/18 14:00 Temperature 97.9 F Pulse Rate 72 61 63 Respiratory Rate 19 Blood Pressure 101/61 Pulse Oximetry 96 03/18/18 16:00 03/18/18 18:00 03/18/18 19:52 Temperature 98.8 F Pulse Rate 67 76 Respiratory Rate 17 Blood Pressure 90/55 L Pulse Oximetry 85 L 93 L 03/18/18 20:00 03/18/18 22:00 03/19/18 00:00 Temperature 101.1 F H 102.4 F H Pulse Rate 66 73 79 Respiratory Rate 18 20 Blood Pressure 97/54 L 125/60 Pulse Oximetry 94 L 92 L 03/19/18 02:00 03/19/18 04:00 03/19/18 06:00 Temperature 102.9 F H Pulse Rate 80 63 75 Respiratory Rate 18 Blood Pressure 116/59 L Pulse Oximetry 97 Intake & Output 03/18/18 03/19/18 03/19/18 18:59 06:59 18:59 Intake Total 1480 / 1480 1605 / 1605 1000 / 1000 Output Total 425 / 425 350 / 350 Balance 1055 / 1055 1255 / 1255 1000 / 1000 Weight 69 kg Intake: IV 700 / 700 1125 / 1125 1000 / 1000 1/2 Normal Saline Inj 1,000 ML 1000 / 1000 1000 / 1000 @ 84 mls/hr IV.CONT .[id number] FREDRICK Rx#:[id number] Cardizem Inj 125 MG In NS Inj 25 / 25 100 ML @ 5 MG/HR 5 mls/hr IV. CONT TITRATE PRN Rx#:[id number] Zosyn 3.375 GM Premix 50 ML @ 100 / 100 100 mls/hr IV.SIG Q6H FREDRICK Rx#: [id number] Zosyn 4.5 GM Premix 4.5 gm In 200 / 200 100 ml @ 200 mls/hr IV.SIG Q6H FREDRICK Rx#:[id number] NS Inj 500 ML @ Wide Open IV. 500 / 500 SIG BOLUS ONE Rx#:[id number] Oral 780 / 780 480 / 480 Output: Urine 425 / 425 350 / 350 Other: # Voids 4 # Incontinent Voids 1 Date of Last Bowel Movement 03/16/18 # Bowel Movements 0 Narrative: GENERAL: Well-developed, well-nourished in no distress. On 3 L nasal cannula SKIN: Warm and dry. CARDIOVASCULAR: Irregularly irregular RESPIRATORY: No accessory muscle use. Clear to auscultation. Breath sounds equal bilaterally. GASTROINTESTINAL: Abdomen soft, non-tender, nondistended. MUSCULOSKELETAL: Extremities without clubbing, cyanosis, or edema. No obvious deformities. Slight erythema dorsum of left foot with improved tenderness NEUROLOGICAL: Awake and alert. No obvious cranial nerve deficits. Motor grossly within normal limits. Five out of 5 muscle strength in the arms and legs. Normal speech. PSYCHIATRIC: Appropriate mood and affect; insight and judgment normal. Results - Labs CBC & Chem 7: 03/18/18 03:25 03/19/18 04:13 Laboratory Results - last 24 hr 03/18/18 03/19/18 18:40 04:13 Sodium 136 Potassium 3.6 Chloride 102 Carbon Dioxide 21.2 Anion Gap 13 BUN 41 H Creatinine 2.38 H Estimated GFR 27 L Random Glucose 82 Calcium 7.5 L Magnesium 1.5 Urine Color Yellow Urine Clarity Hazy H Urine pH 5.0 Ur Specific [place] 1.026 Urine Protein 30 H Urine Glucose (UA) Negative Urine Ketones Negative Urine Occult Blood Small H Urine Nitrate Negative Urine Bilirubin Negative Urine Urobilinogen Less than 2 Ur Leukocyte Esterase Trace H Urine RBC 1 Urine WBC 6 H Ur Squamous Epith Cells <1 Urine Mucus Few H Micro UA Comment Culture not ind Ur Microscopic Review Not Reportable Urine Culture Comments Culture not ind Random Vancomycin 16.7 Microbiology 03/16/18 19:55 Blood - Peripheral Aerobic Blood Culture - Preliminary No growth in 2 days 03/16/18 19:55 Blood - Peripheral Anaerobic Blood Culture - Preliminary No growth in 2 days 03/16/18 21:05 Blood - Peripheral Aerobic Blood Culture - Preliminary No growth in 2 days 03/16/18 21:05 Blood - Peripheral Anaerobic Blood Culture - Preliminary No growth in 2 days - Imaging ITS Impressions Chest X-Ray 03/16/18 21:50 CONCLUSION: Questionable mild interstitial opacities in the lower lung zones bilaterally. No focal airspace consolidation is present and there is no pleural effusion. Foot X-Ray 03/16/18 21:50 CONCLUSION: No acute left foot abnormality is identified. 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 Tibia/Fibula X-Ray 03/16/18 22:08 CONCLUSION: No acute left leg abnormality is identified. - Procedures none Assessment and Plan - Plan Sepsis -Cellulitis of left foot, currently no signs concerning for necrotizing soft tissue infection. Improving -Broad-spectrum antibiotics (vanco/ zosyn) -Follow-up cultures and de-escalate per sensitivity. Negative to date -Lactate cleared, no longer trending -Change dilaudid to oxycodone for PRN pain A. 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 -Worse today secondary to decreased oral intake and from sepsis. Also with borderline low BP. Continue gentle IV hydration monitor for fluid overload DVT GI prophylaxis -SCDs -Does not need SQ heparin as he is on Eliquis -Does not need stress ulcer prophylaxis as he is tolerating cardiac diet Overall: Stable for transfer to floor
[2018-03-19] MEDS: Temazepam 15 MG Capsule PO PRN (22:01)
[2018-03-20] MEDS: Piperacil/Tazo 3.375 GM Premix 50 ML IV.SIG SCH ×4 (03:43→22:49)
[2018-03-20] MEDS: Chlorhexidine Gluconate 2% 1 Pack (2 Cloths) TOPICAL SCH (04:04)
[2018-03-20 07:53] LABS: Calcium 7.4 mg/dL (8.5-10.1); Carbon Dioxide 20.8 meq/L (21.0-32.0); Magnesium 1.7 mg/dL (1.5-2.5); Potassium 3.5 meq/L (3.5-5.1); Vancomycin,Random 14.9 Comment
[2018-03-20 08:36] LABS: Total Protein 6.4 g/dL (6.4-8.2)
[2018-03-20] MEDS: methIMAzole 5 MG Tablet PO SCH (09:59)
[2018-03-20] MEDS: Carvedilol 6.25 MG Tablet PO SCH ×2 (09:59→22:48)
[2018-03-20] MEDS: dilTIAZem CD 240 MG Capsule PO SCH (09:59)
[2018-03-20] MEDS: Senna/Docusate Sodium 8.6/50 MG Tablet PO SCH ×2 (09:59→22:48)
--- NOTE | 2018-03-20 13:54 | P.PN ---
Subjective Interval history: Follow-up left foot cellulitis. T-max 100 point 8 improving pain. Patient has worsening renal function despite IV fluids. No urinary symptoms. History of heart failure denies shortness of breath Physical Exam Vital signs: Vital Signs 03/19/18 14:00 03/19/18 16:00 03/19/18 18:00 Temperature 97.8 F Pulse Rate 54 L 60 81 Respiratory Rate 13 Blood Pressure 92/52 L Pulse Oximetry 03/19/18 20:00 03/20/18 00:00 03/20/18 04:00 Temperature 98.1 F 100.8 F H 98.9 F Pulse Rate 85 97 H 99 H Respiratory Rate 22 20 20 Blood Pressure 118/59 L 109/61 135/64 Pulse Oximetry 94 L 94 L 94 L Intake & Output 03/19/18 03/20/18 03/20/18 18:59 06:59 18:59 Intake Total 1600 / 1600 1440 / 1440 50 / 50 Output Total 450 / 450 450 / 450 Balance 1150 / 1150 990 / 990 50 / 50 Weight 73.1 kg Intake: IV 1100 / 1100 1200 / 1200 50 / 50 1/2 Normal Saline Inj 1,000 ML 1000 / 1000 1000 / 1000 @ 70 mls/hr IV.CONT .[id number] [facility] Rx#:[id number] Zosyn 3.375 GM Premix 50 ML @ 100 / 100 100 / 100 50 / 50 100 mls/hr IV.SIG Q6H [facility] Rx#: [id number] Vancomycin Inj 500 MG In NS Inj 0 / 0 100 ML @ 200 mls/hr IV.SIG ONCE ONE Rx#:[id number] Oral 500 / 500 240 / 240 Output: Urine 450 / 450 450 / 450 Other: Post Void Residual 0 # Voids 3 # Incontinent Voids 0 Date of Last Bowel Movement 03/16/18 03/18/18 # Bowel Movements 0 Narrative: GENERAL: Well-developed, well-nourished in no distress. On 3 L nasal cannula SKIN: Warm and dry. CARDIOVASCULAR: Irregularly irregular RESPIRATORY: No accessory muscle use. Clear to auscultation. Breath sounds equal bilaterally. GASTROINTESTINAL: Abdomen soft, non-tender, nondistended. MUSCULOSKELETAL: Extremities without clubbing, cyanosis, or edema. No obvious deformities. Resolved erythema dorsum of left foot with improved tenderness NEUROLOGICAL: Awake and alert. No obvious cranial nerve deficits. Motor grossly within normal limits. Five out of 5 muscle strength in the arms and legs. Normal speech. PSYCHIATRIC: Appropriate mood and affect; insight and judgment normal. Results - Labs CBC & Chem 7: 03/18/18 03:25 03/20/18 06:43 Laboratory Results - last 24 hr 03/20/18 06:43 Sodium 136 Potassium 3.5 Chloride 101 Carbon Dioxide 20.8 L Anion Gap 14 BUN 36 H Creatinine 2.54 H Estimated GFR 25 L Random Glucose 83 Calcium 7.4 L* Prot Corrected Calcium 7.8 L Magnesium 1.7 Total Protein 6.4 D Random Vancomycin 14.9 Microbiology 03/16/18 19:55 Blood - Peripheral Aerobic Blood Culture - Preliminary No growth in 4 days 03/16/18 19:55 Blood - Peripheral Anaerobic Blood Culture - Preliminary No growth in 4 days 03/16/18 21:05 Blood - Peripheral Aerobic Blood Culture - Preliminary No growth in 4 days 03/16/18 21:05 Blood - Peripheral Anaerobic Blood Culture - Preliminary No growth in 4 days - Procedures none Assessment and Plan - Plan Sepsis -Cellulitis of left foot, currently no signs concerning for necrotizing soft tissue infection. Improving -Broad-spectrum antibiotics (vanco/ zosyn) switched to Keflex -Follow-up cultures and de-escalate per sensitivity. Negative to date -Lactate cleared, no longer trending -Change dilaudid to oxycodone for PRN pain A. 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 -secondary to decreased oral intake and from sepsis. Also with borderline low BP. Worsening despite IV hydration. Consult nephrology check urine eosinophils DVT GI prophylaxis -SCDs -Does not need SQ heparin as he is on Eliquis -Does not need stress ulcer prophylaxis as he is tolerating cardiac diet Discharge Planning: Home health care versus rehab
[2018-03-20] MEDS: Sodium Chloride 0.45 % Inj 1,000 ML IV.CONT SCH (17:26)
[2018-03-20] MEDS: Acetaminophen 325 MG Tablet PO PRN (17:45)
--- NOTE | 2018-03-20 17:46 | P.CONNP ---
History of Present Illness Service: Nephrology Consult date: 03/20/18 Requesting Physician: Edmond Burks Reason for Consult: Acute and chronic kidney disease Primary Care Provider: [facility] Family Provider: Physician [facility] Chief Complaint: Generalized weakness History of Present Illness: Patient is a 72-year-old white male with history of chronic kidney disease, chronic lymphocytic leukemia chemotherapy past 3 years patient has been taking Ibrutinib, patient white cell count is controlled and is followed by hematology. He is noticed to have chronic kidney dysfunction creatinine is elevated and went up to 2.54 from a baseline creatinine of 1.5. He denies any dysuria or burning kidney stones on stated issues. He was admitted with left foot pain has been doing better since admission. Review of Systems Constitutional: Reports body ache(s) Eyes: Denies blind spots, Denies blurry vision, Denies bulging eyes, Denies change in vision, Denies double vision, Denies discharge, Denies dry eyes, Denies floaters, Denies irritation, Denies itchy eyes, Denies loss of vision, Denies pain, Denies requires corrective lenses, Denies sensitivity to light, Denies other Ears, Nose, Mouth, and Throat: Denies abnormal hearing, Denies bleeding gums, Denies bad breath, Denies change in voice, Denies dental pain, Denies difficulty swallowing, Denies dizziness, Denies dry mouth, Denies ear discharge , Denies ear pain, Denies facial pain, Denies headache(s), Denies hearing loss, Denies hoarseness, Denies lip swelling, Denies nosebleed, Denies mouth lesions, Denies mouth pain, Denies nasal congestion, Denies nasal discharge, Denies nasal obstruction, Denies nasal trauma, Denies neck lump, Denies neck pain, Denies nose pain, Denies pain with swallowing, Denies poor balance, Denies post nasal drip, Denies ringing in the ears, Denies sinus pain, Denies sinus pressure , Denies sore throat, Denies throat swelling, Denies tongue swelling, Denies other Cardiovascular: Reports rapid, pounding, or irregular heartbeat Respiratory: Reports shortness of breath Gastrointestinal: Reports constipation Genitourinary: Denies blood in semen, Denies blood in urine, Denies decreased urination, Denies difficulty urinating, Denies difficulty with ejaculations, Denies erectile dysfunction, Denies genital lesions, Denies genital pain, Denies painful urination, Denies side pain, Denies frequent nighttime urination , Denies painful ejaculations, Denies penile discharge, Denies scrotal swelling , Denies testicle lump, Denies testicle pain, Denies urinary frequency, Denies urinary hesitancy, Denies urinary incontinence, Denies urinary urgency, Denies other Musculoskeletal: Reports joint pain, Reports radiating pain into limb Neurologic: Reports weakness PMFSH - History History Provided By: Patient - Medical History Medical History: Medical History (Last Reviewed 03/18/18 @ 07:57 by Giuliano Morris) Afib CHF (congestive heart failure) COPD (chronic obstructive pulmonary disease) CVA (cerebral vascular accident) History of stroke Hx of cardiac murmur Hypertension Leukemia - Surgical History Surgical History: Surgical History (Last Reviewed 03/18/18 @ 07:57 by Giuliano Morris) Hx of cholecystectomy - Tobacco History Second Hand Smoke Exposure: Yes Tobacco Use In Past 30 Days: Yes Smoking Status: Current every day smoker Tobacco Type: Cigarettes - Alcohol History How Often Do You Have a Drink Containing Alcohol: Never - Substance Use History Substance History: Past History - Travel History Recent Travel in the [place] Within the Last 8 Weeks: No Recent Travel Out of the Country Within the Last 8 Weeks: No - Immunization History Tetanus Immunization: Unsure Hx Influenza Vaccine This Season: No Medications and Allergies Active Medications: Active Medications Acetaminophen (Tylenol) 650 mg PO Q6H PRN PRN Reason: PAIN 1-3 AND/OR FEVER >101F Last Admin: 03/19/18 05:56 Dose: 650 mg Albuterol (Duoneb Neb (Prn)) 1 ampul NEB Q2HR NEB PRN PRN Reason: WHEEZING Apixaban (Eliquis) 5 mg PO BID [facility] Last Admin: 03/20/18 09:59 Dose: 5 mg Aspirin (Ecotrin) 81 mg PO DAILY [facility] Last Admin: 03/20/18 09:59 Dose: 81 mg Bisacodyl (Dulcolax Supp) 10 mg RECTAL DAILY PRN PRN Reason: SEVERE CONSITIPATION Carvedilol (Coreg) 6.25 mg PO BID [facility] Last Admin: 03/20/18 09:59 Dose: 6.25 mg Cephalexin Monohydrate (Keflex) 500 mg PO Q6HR [facility] Last Admin: 03/20/18 17:33 Dose: 500 mg Chlorhexidine Gluconate (Chlorhexidine 2% Cloth) 3 pack TOPICAL DAILY@0400 [facility] Stop: 03/22/18 03:59 Last Admin: 03/20/18 04:04 Dose: Not Given Chlorhexidine Gluconate (Chlorhexidine 2% Cloth) 3 pack TOPICAL DAILY@0400 PRN PRN Reason: Extra cloth needed Stop: 03/22/18 03:59 Diltiazem HCl (Cardizem Cd 24hr) 240 mg PO DAILY [facility] Last Admin: 03/20/18 09:59 Dose: 240 mg Sodium Chloride (Ns Inj) 1,000 mls @ 0 mls/hr IV.SIG BOLUS [facility] Last Infusion: 03/17/18 00:30 Dose: Infused Sodium Chloride (1/2 Normal Saline Inj) 1,000 mls @ 70 mls/hr IV.CONT .[id number] [facility] Last Admin: 03/20/18 17:26 Dose: 84 mls/hr Piperacillin/Tazobactam/Dextrose (Zosyn 3.375 Gm Premix) 50 mls @ 100 mls/hr IV.SIG Q6H [facility] Last Admin: 03/20/18 17:23 Dose: 100 mls/hr Vancomycin HCl 1,000 mg/ (Sodium Chloride) 250 mls @ 250 mls/hr IV.SIG ONCE ONE Stop: 03/20/18 18:59 Last Admin: 03/20/18 17:33 Dose: 250 mls/hr Lactulose (Lactulose Liq) 30 ml PO DAILY PRN PRN Reason: SEVERE CONSITIPATION Methimazole (Tapazole) 5 mg PO DAILY [facility] Last Admin: 03/20/18 09:59 Dose: 5 mg Metoclopramide HCl (Reglan Inj) 5 mg IV.PUSH Q6HR PRN; Protocol PRN Reason: NAUSEA OR VOMITING Ondansetron HCl (Zofran Inj) 4 mg IV.PUSH Q6H PRN PRN Reason: NAUSEA OR VOMITING Last Admin: 03/17/18 06:20 Dose: 4 mg Oxycodone HCl (Roxicodone) 10 mg PO Q6H PRN PRN Reason: PAIN SCALE 7 TO 10 SEVERE Last Admin: 03/20/18 03:49 Dose: 10 mg Oxycodone HCl (Roxicodone) 5 mg PO Q6H PRN PRN Reason: PAIN SCALE 4 TO 6 MODERATE Last Admin: 03/18/18 08:34 Dose: 5 mg Pantoprazole Sodium (Protonix) 40 mg PO HS [facility] Last Admin: 03/19/18 20:43 Dose: 40 mg Pharmacy Profile Note (Vancomycin Consult Pharmacy) 1 each OTHER PRN PRN PRN Reason: PHARMACY CONSULT Pravastatin Sodium (Pravachol) 10 mg PO DAILY [facility] Last Admin: 03/20/18 10:02 Dose: 10 mg Pravastatin Sodium (Pravachol) 80 mg PO DAILY [facility] Last Admin: 03/20/18 09:59 Dose: 80 mg Senna/Docusate Sodium (Jennifer-Colace) 1 tab PO BID [facility] Last Admin: 03/20/18 09:59 Dose: 1 tab Sennosides (Senokot) 17.2 mg PO Q12H PRN PRN Reason: Moderate Constipation Sodium Chloride (Ns Flush) 2 ml IV.FLUSH PRN PRN PRN Reason: FLUSH AFTER USING IV ACCESS Sodium Chloride (Ns Flush) 2 ml IV.FLUSH BID [facility] Last Admin: 03/20/18 10:02 Dose: Not Given Sodium Chloride (Ns Flush) 2 ml IV.FLUSH PRN PRN PRN Reason: FLUSH AFTER USING IV ACCESS Temazepam (Restoril) 15 mg PO HS PRN PRN Reason: INSOMNIA Last Admin: 03/19/18 22:01 Dose: 15 mg Allergies Allergy/AdvReac Type Severity Reaction Status Date / Time No Known Allergies Allergy Unverified 03/16/18 22:16 Home Medications Medication Instructions Recorded Confirmed Type potassium chloride 20 meq PO DAILY 03/16/18 03/16/18 History simvastatin 80 mg PO DAILY 03/16/18 03/16/18 History Exam Vital signs: Vital Signs 03/19/18 18:00 03/19/18 20:00 03/20/18 00:00 Temperature 98.1 F 100.8 F H Pulse Rate 81 85 97 H Respiratory Rate 22 20 Blood Pressure 118/59 L 109/61 Pulse Oximetry 94 L 94 L 03/20/18 04:00 03/20/18 08:00 03/20/18 12:00 Temperature 98.9 F 98.1 F 97.8 F Pulse Rate 99 H 90 92 H Respiratory Rate 20 20 20 Blood Pressure 135/64 107/59 L 110/62 Pulse Oximetry 94 L 95 94 L Intake & Output 03/19/18 03/20/18 03/20/18 18:59 06:59 18:59 Intake Total 1600 / 1600 1440 / 1440 1050 / 1050 Output Total 450 / 450 450 / 450 Balance 1150 / 1150 990 / 990 1050 / 1050 Weight 73.1 kg Intake: IV 1100 / 1100 1200 / 1200 1050 / 1050 1/2 Normal Saline Inj 1,000 ML 1000 / 1000 1000 / 1000 1000 / 1000 @ 70 mls/hr IV.CONT .[id number] [facility] Rx#:[id number] Zosyn 3.375 GM Premix 50 ML @ 100 / 100 100 / 100 50 / 50 100 mls/hr IV.SIG Q6H [facility] Rx#: [id number] Vancomycin Inj 500 MG In NS Inj 0 / 0 100 ML @ 200 mls/hr IV.SIG ONCE ONE Rx#:[id number] Oral 500 / 500 240 / 240 Output: Urine 450 / 450 450 / 450 Other: Post Void Residual 0 # Voids 3 # Incontinent Voids 0 Date of Last Bowel Movement 03/16/18 03/18/18 # Bowel Movements 0 - Constitutional no acute distress - Routine HEENT Exam Head: Present: normocephalic Eye: Present: EOMI ENT: Present: mucous membranes moist - Routine Neck Exam Present: supple - Routine Respiratory Exam Present: CTA bilaterally - Routine Cardiovascular Exam Present: irregular rhythm - Routine Abdominal Exam Present: soft, normoactive bowel sounds - Routine Extremities Exam Present: full ROM - Routine Neurological Exam Present: alert, oriented X3 Results - Lab Results 03/18/18 03:25 03/20/18 06:43 Most recent lab results Calcium 7.4 mg/dL (8.5-10.1) L* 03/20/18 06:43 Phosphorus 4.8 mg/dL (2.5-4.9) 03/18/18 03:25 Magnesium 1.7 mg/dL (1.5-2.5) 03/20/18 06:43 Assessment and Plan - Assessment (1) Acute on chronic kidney failure Code(s): N17.9 - Acute kidney failure, unspecified; N18.9 - Chronic kidney disease, unspecified Status: Acute (2) Atrial fibrillation with RVR Code(s): I48.91 - Unspecified atrial fibrillation Status: Acute (3) COPD (chronic obstructive pulmonary disease) Code(s): J44.9 - Chronic obstructive pulmonary disease, unspecified Status: Acute (4) CLL (chronic lymphocytic leukemia) Code(s): C91.90 - Lymphoid leukemia, unspecified not having achieved remission Status: Acute - Plan Patient is relatively hypotensive since initial presentation was hypertension Other possibilities chemotherapeutic agent Ibrutinib leading to elevated creatinine This may potentially affect the kidney functions I will order 5% albumin 250 cc Maintain hydration Avoid nephrotoxic agents Check protein electrophoresis, urine and serum complement Ultrasound of the kidney Follow BMP
[2018-03-20] MEDS ORDERED: Vancomycin Inj 1,000 MG in Sodium Chlor 0.9% Inj 250 ML IV.SIG ONE (18:00)
[2018-03-20] MEDS ORDERED: Albumin Human 5% Inj 500 ML IV.SIG ONE (19:15)
[2018-03-20 20:41] LABS: Creatinine,Urine Random 98 mg/dL (27-300)
--- NOTE | 2018-03-20 21:27 | US ---
EXAM DATE: 03/20/2018 9:21 PM EDT AGE/SEX: 72 years / Male INDICATIONS: Increased Bun and Creatinine. CLINICAL DATA: This is the patient's initial encounter. Patient reports that signs and symptoms have been present for 1 day and indicates a pain score of 0/10. MEDICAL/SURGICAL HISTORY: . Afib. CHF. COPD. CVA. Cardiac murmur. HTN. Leukemia. Cholecy stectomy. COMPARISON: [facility] [place] COMPLETE, 04/02/2016. . MEASUREMENTS: Right Kidney:__12.0 x 5.0 x 5.0 cm Left Kidney:__12.2 x 5.3 x 5.2 cm FINDINGS: Right Kidney: FINDINGS Left Kidney: FINDINGS Bladder: Within normal limits given the degree of distension. Other: None. CONCLUSION: 1. Unremarkable exam with no hydronephrosis. Electronically signed by: Giuliano Dyer MD 03/20/2018 9:26 PM EDT
[2018-03-20 22:22] LABS: Kappa Lambda Ratio 1.34 (1.57-3.93)
[2018-03-20] MEDS: Temazepam 15 MG Capsule PO PRN (22:47)
[2018-03-21] MEDS: Sodium Chloride 0.45 % Inj 1,000 ML IV.CONT SCH ×2 (02:28→17:03)
[2018-03-21] MEDS: Piperacil/Tazo 3.375 GM Premix 50 ML IV.SIG SCH ×2 (05:21→10:04)
[2018-03-21] MEDS: Chlorhexidine Gluconate 2% 1 Pack (2 Cloths) TOPICAL SCH (05:22)
[2018-03-21 07:34] LABS: Calcium 7.9 mg/dL (8.5-10.1); Carbon Dioxide 22.2 meq/L (21.0-32.0); Magnesium 1.8 mg/dL (1.5-2.5); Potassium 3.8 meq/L (3.5-5.1)
[2018-03-21] MEDS: methIMAzole 5 MG Tablet PO SCH (10:05)
[2018-03-21] MEDS: Senna/Docusate Sodium 8.6/50 MG Tablet PO SCH ×2 (10:06→20:40)
[2018-03-21] MEDS: Carvedilol 6.25 MG Tablet PO SCH (10:06)
[2018-03-21] MEDS: dilTIAZem CD 240 MG Capsule PO SCH (10:07)
[2018-03-21] MEDS ORDERED: Vancomycin Inj 1,500 MG in Sodium Chlor 0.9% Inj 500 ML IV.SIG ONE (11:00)
--- NOTE | 2018-03-21 12:52 | P.PN ---
Subjective Interval history: Follow-up acute kidney injury. Nonoliguric. States she is depressed but not suicidal. He wants to get better. Physical Exam Vital signs: Vital Signs 03/20/18 16:00 03/20/18 20:00 03/21/18 00:00 Temperature 98.7 F 97.7 F 97.8 F Pulse Rate 88 62 58 L Respiratory Rate 18 17 17 Blood Pressure 104/62 102/50 L 100/52 L Pulse Oximetry 96 94 L 98 03/21/18 01:52 03/21/18 08:00 03/21/18 12:00 Temperature 97.4 F L 97.3 F L Pulse Rate 75 54 L Respiratory Rate 20 18 Blood Pressure 122/58 L 101/59 L Pulse Oximetry 96 96 94 L Intake & Output 03/20/18 03/21/18 03/21/18 18:59 06:59 18:59 Intake Total 1700 / 1700 1830 / 1830 550 / 550 Output Total 300 / 300 500 / 500 Balance 1400 / 1400 1330 / 1330 550 / 550 Weight 73 kg Intake: IV 1100 / 1100 1350 / 1350 550 / 550 1/2 Normal Saline Inj 1,000 ML 1000 / 1000 1000 / 1000 @ 70 mls/hr IV.CONT .[id number] [facility] Rx#:[id number] Alburx 5% Inj 500 ML @ 250 mls/ 500 / 500 hr IV.SIG ONCE ONE Rx#:[id number] Zosyn 3.375 GM Premix 50 ML @ 100 / 100 100 / 100 50 / 50 100 mls/hr IV.SIG Q6H [facility] Rx#: [id number] Vancomycin Inj 1,000 MG In NS 250 / 250 Inj 250 ML @ 250 mls/hr IV.SIG ONCE ONE Rx#:[id number] Oral 600 / 600 480 / 480 Output: Urine 300 / 300 500 / 500 Narrative: GENERAL: Well-developed, well-nourished in no distress. On 3 L nasal cannula SKIN: Warm and dry. CARDIOVASCULAR: Irregularly irregular RESPIRATORY: No accessory muscle use. Clear to auscultation. Breath sounds equal bilaterally. GASTROINTESTINAL: Abdomen soft, non-tender, nondistended. MUSCULOSKELETAL: Extremities without clubbing, cyanosis, or edema. No obvious deformities. Resolved erythema dorsum of left foot with improved tenderness and swelling NEUROLOGICAL: Awake and alert. No obvious cranial nerve deficits. Motor grossly within normal limits. Five out of 5 muscle strength in the arms and legs. Normal speech. PSYCHIATRIC: Appropriate mood and affect; insight and judgment normal. Results - Labs CBC & Chem 7: 03/18/18 03:25 03/21/18 06:28 Laboratory Results - last 24 hr 03/20/18 03/20/18 03/20/18 18:30 19:40 19:40 Sodium Potassium Chloride Carbon Dioxide Anion Gap BUN Creatinine Estimated GFR Random Glucose Calcium Phosphorus 4.0 Magnesium Urine Eosinophils None seen Ur Random Creatinine 98 Ur Random Sodium 75 IgG 1150 IgA 354 IgM 103 Newberry/Lambda Ratio 1.34 L Complement C3 106 Complement C4 27 Newberry Light Chain Anal 274 Lambda Light Chain Anal 204 03/21/18 06:28 Sodium 134 L Potassium 3.8 Chloride 101 Carbon Dioxide 22.2 Anion Gap 11 BUN 36 H Creatinine 2.47 H Estimated GFR 26 L Random Glucose 97 Calcium 7.9 L Phosphorus Magnesium 1.8 Urine Eosinophils Ur Random Creatinine Ur Random Sodium IgG IgA IgM Newberry/Lambda Ratio Complement C3 Complement C4 Newberry Light Chain Anal Lambda Light Chain Anal Microbiology 03/16/18 19:55 Blood - Peripheral Aerobic Blood Culture - Final No growth in 5 days 03/16/18 19:55 Blood - Peripheral Anaerobic Blood Culture - Final No growth in 5 days 03/16/18 21:05 Blood - Peripheral Aerobic Blood Culture - Final No growth in 5 days 03/16/18 21:05 Blood - Peripheral Anaerobic Blood Culture - Final No growth in 5 days - Imaging Impressions Abdomen/Bladder Ultrasound 03/20/18 00:00 CONCLUSION: 1. Unremarkable exam with no hydronephrosis. - Procedures none Assessment and Plan - Plan Sepsis -Cellulitis of left foot, currently no signs concerning for necrotizing soft tissue infection. Improving -Broad-spectrum antibiotics (vanco/ zosyn) switched to Keflex -Follow-up cultures and de-escalate per sensitivity. Negative to date -Lactate cleared, no longer trending -Change dilaudid to oxycodone for PRN pain A. 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 -secondary to decreased oral intake and from sepsis. Also with borderline low BP. Urinary eosinophils and renal ultrasound negative. Creatinine slightly better today status post IV albumin 1. Continue IV hydration. Follow-up protein electrophoresis. Appreciate nephrology assistance DVT GI prophylaxis -SCDs -Does not need SQ heparin as he is on Eliquis -Does not need stress ulcer prophylaxis as he is tolerating cardiac diet Discharge Planning: Will need rehab. Follow-up PT
[2018-03-21] MEDS ORDERED: Carvedilol 6.25 MG Tablet PO SCH (17:00)
--- NOTE | 2018-03-21 17:00 | P.PNNP ---
Subjective Interval history: Patient is tired Physical Exam Vital signs: Vital Signs 03/20/18 20:00 03/21/18 00:00 03/21/18 01:52 Temperature 97.7 F 97.8 F Pulse Rate 62 58 L Respiratory Rate 17 17 Blood Pressure 102/50 L 100/52 L Pulse Oximetry 94 L 98 96 03/21/18 08:00 03/21/18 12:00 03/21/18 16:00 Temperature 97.4 F L 97.3 F L 97.8 F Pulse Rate 75 54 L 60 Respiratory Rate 20 18 14 Blood Pressure 122/58 L 101/59 L 88/48 L Pulse Oximetry 96 94 L 95 Intake & Output 03/20/18 03/21/18 03/21/18 18:59 06:59 18:59 Intake Total 1700 / 1700 1830 / 1830 550 / 550 Output Total 300 / 300 500 / 500 Balance 1400 / 1400 1330 / 1330 550 / 550 Weight 73 kg Intake: IV 1100 / 1100 1350 / 1350 550 / 550 1/2 Normal Saline Inj 1,000 ML 1000 / 1000 1000 / 1000 @ 70 mls/hr IV.CONT .[id number] [facility] Rx#:[id number] Alburx 5% Inj 500 ML @ 250 mls/ 500 / 500 hr IV.SIG ONCE ONE Rx#:[id number] Zosyn 3.375 GM Premix 50 ML @ 100 / 100 100 / 100 50 / 50 100 mls/hr IV.SIG Q6H [facility] Rx#: [id number] Vancomycin Inj 1,000 MG In NS 250 / 250 Inj 250 ML @ 250 mls/hr IV.SIG ONCE ONE Rx#:[id number] Oral 600 / 600 480 / 480 Output: Urine 300 / 300 500 / 500 - Constitutional no acute distress - Routine HEENT Exam Head: Present: normocephalic Eye: Present: EOMI - Routine Neck Exam Present: supple - Routine Respiratory Exam Present: CTA bilaterally - Routine Cardiovascular Exam Present: RRR - Routine Abdominal Exam Present: soft, normoactive bowel sounds - Routine Extremities Exam Present: pulses intact Assessment and Plan - Assessment (1) Acute on chronic kidney failure Code(s): N17.9 - Acute kidney failure, unspecified; N18.9 - Chronic kidney disease, unspecified Status: Acute (2) Atrial fibrillation with RVR Code(s): I48.91 - Unspecified atrial fibrillation Status: Acute (3) COPD (chronic obstructive pulmonary disease) Code(s): J44.9 - Chronic obstructive pulmonary disease, unspecified Status: Acute (4) CLL (chronic lymphocytic leukemia) Code(s): C91.90 - Lymphoid leukemia, unspecified not having achieved remission Status: Acute - Plan Patient is relatively hypotensive since initial presentation was hypertension Other possibilities chemotherapeutic agent Ibrutinib leading to elevated creatinine This may potentially affect the kidney functions I will order 5% albumin 250 cc Maintain hydration Patient creatinine appears to be declining with hydration of 5% albumin to be given again Follow BMP
[2018-03-21] MEDS ORDERED: dilTIAZem CD 240 MG Capsule PO SCH (17:02)
[2018-03-21] MEDS: Temazepam 15 MG Capsule PO PRN (20:40)
[2018-03-22] MEDS: Sodium Chloride 0.45 % Inj 1,000 ML IV.CONT SCH ×3 (01:19→21:21)
[2018-03-22 08:11] LABS: Baso % (Auto) 0.8 % (0.0-2.0); Eos # (Auto) 0.1 th/mm3 (0.0-0.4); Eos % (Auto) 1.7 % (0.0-4.0); Hematocrit 28.1 % (39.0-51.0); Hemoglobin 9.3 gm/dL (13.0-17.0); Lymph # (Auto) 1.3 th/mm3 (1.0-4.8); Lymph % (Auto) 24.3 % (9.0-44.0); Mean Corpuscular Hemoglobin 26.6 pg (27.0-34.0); Mean Corpuscular Volume 80.4 fL (80.0-100.0); Mean Platelet Volume 10.1 fL (7.0-11.0); Mono # (Auto) 0.4 th/mm3 (0.0-0.9); Mono % (Auto) 6.5 % (0.0-8.0); Neut # (Auto) 3.7 th/mm3 (1.8-7.7); Neut % (Auto) 66.7 % (16.0-70.0); Platelet Count 135 th/mm3 (150-450); Red Blood Count 3.49 mil/mm3 (4.50-5.90); Red Cell Distribution Width 15.1 % (11.6-17.2); White Blood Count 5.5 th/mm3 (4.0-11.0)
[2018-03-22 08:36] LABS: Calcium 8.2 mg/dL (8.5-10.1); Carbon Dioxide 20.5 meq/L (21.0-32.0); Magnesium 1.7 mg/dL (1.5-2.5); Potassium 3.8 meq/L (3.5-5.1)
[2018-03-22 08:37] LABS: Vancomycin,Random 24.1 Comment
[2018-03-22] MEDS: Senna/Docusate Sodium 8.6/50 MG Tablet PO SCH ×2 (09:30→21:25)
[2018-03-22] MEDS: methIMAzole 5 MG Tablet PO SCH (09:31)
[2018-03-22] MEDS: dilTIAZem CD 180 MG Capsule PO SCH (09:31)
--- NOTE | 2018-03-22 12:19 | P.PN ---
Subjective Interval history: Follow-up left foot cellulitis. Still having pain and difficulty putting weight on left foot. Physical Exam Vital signs: Vital Signs 03/21/18 16:00 03/21/18 20:00 03/22/18 00:00 Temperature 97.8 F 97.8 F 97.4 F L Pulse Rate 60 51 L 49 L Respiratory Rate 14 16 16 Blood Pressure 88/48 L 107/51 L 102/51 L Pulse Oximetry 95 97 97 03/22/18 08:00 Temperature 97.7 F Pulse Rate 76 Respiratory Rate 18 Blood Pressure 151/70 H Pulse Oximetry 91 L Intake & Output 03/21/18 03/22/18 03/22/18 18:59 06:59 18:59 Intake Total 2150 / 2150 1480 / 1480 Output Total 1000 / 1000 300 / 300 Balance 1150 / 1150 1180 / 1180 Weight 73 kg Intake: IV 1550 / 1550 1000 / 1000 1/2 Normal Saline Inj 1,000 ML 1000 / 1000 1000 / 1000 @ 70 mls/hr IV.CONT .[id number] [facility] Rx#:[id number] Alburx 5% Inj 500 ML @ 250 mls/ 500 / 500 hr IV.SIG ONCE ONE Rx#:[id number] Zosyn 3.375 GM Premix 50 ML @ 50 / 50 100 mls/hr IV.SIG Q6H [facility] Rx#: [id number] Oral 600 / 600 480 / 480 Output: Urine 1000 / 1000 300 / 300 Other: Date of Last Bowel Movement 03/22/18 # Bowel Movements 1 Narrative: GENERAL: Well-developed, well-nourished in no distress. On 3 L nasal cannula SKIN: Warm and dry. CARDIOVASCULAR: Irregularly irregular RESPIRATORY: No accessory muscle use. Clear to auscultation. Breath sounds equal bilaterally. GASTROINTESTINAL: Abdomen soft, non-tender, nondistended. MUSCULOSKELETAL: Extremities without clubbing, cyanosis, or edema. No obvious deformities. Resolved erythema dorsum of left foot with improved tenderness and swelling NEUROLOGICAL: Awake and alert. No obvious cranial nerve deficits. Motor grossly within normal limits. Five out of 5 muscle strength in the arms and legs. Normal speech. Results - Labs CBC & Chem 7: 03/22/18 07:55 03/22/18 07:55 Laboratory Results - last 24 hr 03/21/18 03/22/18 03/22/18 20:41 07:55 07:55 WBC 5.5 RBC 3.49 L Hgb 9.3 L Hct 28.1 L MCV 80.4 MCH 26.6 L MCHC 33.0 RDW 15.1 Plt Count 135 L MPV 10.1 Neut % (Auto) 66.7 Lymph % (Auto) 24.3 [place] % (Auto) 6.5 Eos % (Auto) 1.7 Baso % (Auto) 0.8 Neut # (Auto) 3.7 Lymph # (Auto) 1.3 [place] # (Auto) 0.4 Eos # (Auto) 0.1 Baso # (Auto) 0.0 WBC Differential . Differential Comment Auto diff final Sodium 135 L Potassium 3.8 Chloride 103 Carbon Dioxide 20.5 L Anion Gap 12 BUN 32 H Creatinine 2.37 H Estimated GFR 27 L POC Glucose 145 H Random Glucose 86 Calcium 8.2 L Magnesium 1.7 Random Vancomycin 24.1 Microbiology 03/16/18 19:55 Blood - Peripheral Aerobic Blood Culture - Final No growth in 5 days 03/16/18 19:55 Blood - Peripheral Anaerobic Blood Culture - Final No growth in 5 days 03/16/18 21:05 Blood - Peripheral Aerobic Blood Culture - Final No growth in 5 days 03/16/18 21:05 Blood - Peripheral Anaerobic Blood Culture - Final No growth in 5 days - Imaging ITS Impressions Chest X-Ray 03/16/18 21:50 CONCLUSION: Questionable mild interstitial opacities in the lower lung zones bilaterally. No focal airspace consolidation is present and there is no pleural effusion. Foot X-Ray 03/16/18 21:50 CONCLUSION: No acute left foot abnormality is identified. 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 Tibia/Fibula X-Ray 03/16/18 22:08 CONCLUSION: No acute left leg abnormality is identified. Abdomen/Bladder Ultrasound 03/20/18 00:00 CONCLUSION: 1. Unremarkable exam with no hydronephrosis. - Procedures none Assessment and Plan - Plan Sepsis -Cellulitis of left foot, currently no signs concerning for necrotizing soft tissue infection. Improving -Broad-spectrum antibiotics (vanco/ zosyn) switched to Keflex -Follow-up cultures and de-escalate per sensitivity. Negative to date -Lactate cleared, no longer trending -Change dilaudid to oxycodone for PRN pain -Patient continues to have discomfort left foot will check ESR, CRP, SANDRA and uric acid. Start steroids. Foot x-ray independently reviewed with no fracture but has osteoarthritis first MTP joint A. 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 -secondary to decreased oral intake and from sepsis. Also with borderline low BP. Urinary eosinophils and renal ultrasound negative. Creatinine continues to improve status post IV albumin 1. Continue IV hydration. Follow-up protein electrophoresis. Appreciate nephrology assistance. This may be secondary to chemotherapy agent DVT GI prophylaxis -SCDs -Does not need SQ heparin as he is on Eliquis -Does not need stress ulcer prophylaxis as he is tolerating cardiac diet Discharge Planning: Will need rehab. Follow-up PT
[2018-03-22 13:32] LABS: C-Reactive Protein 7.88 mg/dL (0.00-0.30); Uric Acid 5.7 mg/dl (2.6-7.2)
[2018-03-22] MEDS: predniSONE 20 MG Tablet PO SCH (13:57)
--- NOTE | 2018-03-22 18:27 | P.PNNP ---
Subjective Interval history: Doing well Physical Exam Vital signs: Vital Signs 03/21/18 20:00 03/22/18 00:00 03/22/18 08:00 Temperature 97.8 F 97.4 F L 97.7 F Pulse Rate 51 L 49 L 76 Respiratory Rate 16 16 18 Blood Pressure 107/51 L 102/51 L 151/70 H Pulse Oximetry 97 97 91 L 03/22/18 12:00 03/22/18 16:00 03/22/18 18:08 Temperature 98.0 F 97.2 F L Pulse Rate 83 62 Respiratory Rate 22 18 18 Blood Pressure 163/69 H 98/55 L Pulse Oximetry 94 L 93 L Intake & Output 03/21/18 03/22/18 03/22/18 18:59 06:59 18:59 Intake Total 2150 / 2150 1480 / 1480 600 / 600 Output Total 1000 / 1000 300 / 300 450 / 450 Balance 1150 / 1150 1180 / 1180 150 / 150 Weight 73 kg Intake: IV 1550 / 1550 1000 / 1000 0 / 0 1/2 Normal Saline Inj 1,000 ML 1000 / 1000 1000 / 1000 0 / 0 @ 70 mls/hr IV.CONT .[id number] [facility] Rx#:[id number] Alburx 5% Inj 500 ML @ 250 mls/ 500 / 500 hr IV.SIG ONCE ONE Rx#:[id number] Zosyn 3.375 GM Premix 50 ML @ 50 / 50 100 mls/hr IV.SIG Q6H [facility] Rx#: [id number] Oral 600 / 600 480 / 480 600 / 600 Output: Urine 1000 / 1000 300 / 300 450 / 450 Other: Date of Last Bowel Movement 03/22/18 # Bowel Movements 1 1 Narrative: GENERAL: Well-developed, well-nourished in no distress. On 3 L nasal cannula SKIN: Warm and dry. CARDIOVASCULAR: Irregularly irregular RESPIRATORY: No accessory muscle use. Clear to auscultation. Breath sounds equal bilaterally. GASTROINTESTINAL: Abdomen soft, non-tender, nondistended. MUSCULOSKELETAL: Extremities without clubbing, cyanosis, or edema. No obvious deformities. Resolved erythema dorsum of left foot with improved tenderness and swelling NEUROLOGICAL: Awake and alert. No obvious cranial nerve deficits. Motor grossly within normal limits. Five out of 5 muscle strength in the arms and legs. Normal speech. Assessment and Plan - Assessment (1) Acute on chronic kidney failure Code(s): N17.9 - Acute kidney failure, unspecified; N18.9 - Chronic kidney disease, unspecified Status: Acute (2) Atrial fibrillation with RVR Code(s): I48.91 - Unspecified atrial fibrillation Status: Acute (3) COPD (chronic obstructive pulmonary disease) Code(s): J44.9 - Chronic obstructive pulmonary disease, unspecified Status: Acute (4) CLL (chronic lymphocytic leukemia) Code(s): C91.90 - Lymphoid leukemia, unspecified not having achieved remission Status: Acute - Plan Patient is relatively hypotensive since initial presentation was hypertension Feels better as likely ATN which is resolving creatinine continues to decline Stable combination of medication and low blood pressure Cause elevation in the creatinine follow BMP Protein electrophoresis negative, SANDRA negative ultrasound negative Discharge planning per primary team
[2018-03-22] MEDS: Temazepam 15 MG Capsule PO PRN (21:31)
[2018-03-23 06:58] LABS: Calcium 8.3 mg/dL (8.5-10.1); Carbon Dioxide 24.3 meq/L (21.0-32.0); Magnesium 1.9 mg/dL (1.5-2.5); Potassium 3.7 meq/L (3.5-5.1)
[2018-03-23] MEDS: Sodium Chloride 0.45 % Inj 1,000 ML IV.CONT SCH ×2 (08:42→10:14)
[2018-03-23] MEDS: dilTIAZem CD 180 MG Capsule PO SCH (08:44)
[2018-03-23] MEDS: predniSONE 20 MG Tablet PO SCH (08:45)
[2018-03-23] MEDS: methIMAzole 5 MG Tablet PO SCH (08:45)
[2018-03-23] MEDS: Senna/Docusate Sodium 8.6/50 MG Tablet PO SCH (08:47)
--- NOTE | 2018-03-23 14:56 | P.PNNP ---
Physical Exam Vital signs: Vital Signs 03/22/18 16:00 03/22/18 18:08 03/22/18 20:15 Temperature 97.2 F L 96.9 F L Pulse Rate 62 80 Respiratory Rate 18 18 17 Blood Pressure 98/55 L 136/63 Pulse Oximetry 93 L 94 L 03/22/18 22:57 03/23/18 00:18 03/23/18 08:00 Temperature 97.1 F L 98.0 F Pulse Rate 81 90 Respiratory Rate 18 16 17 Blood Pressure 132/68 154/112 H Pulse Oximetry 95 94 L 03/23/18 09:30 03/23/18 12:00 Temperature 95.5 F L Pulse Rate 63 Respiratory Rate 19 Blood Pressure 148/74 H 153/76 H Pulse Oximetry 93 L Intake & Output 03/22/18 03/23/18 03/23/18 18:59 06:59 18:59 Intake Total 600 / 600 1973 / 1973 300 / 300 Output Total 450 / 450 1000 / 1000 Balance 150 / 150 975 / 975 300 / 300 Weight 73 kg Intake: IV 0 / 0 1215 / 1215 300 / 300 1/2 Normal Saline Inj 1,000 ML 0 / 0 700 / 700 300 / 300 @ 70 mls/hr IV.CONT .[id number] [facility] Rx#:[id number] Oral 600 / 600 760 / 760 Output: Urine 450 / 450 1000 / 1000 Other: Date of Last Bowel Movement 03/22/18 03/22/18 03/22/18 # Bowel Movements 1 1 Narrative: GENERAL: Well-developed, well-nourished in no distress. On 3 L nasal cannula SKIN: Warm and dry. CARDIOVASCULAR: Irregularly irregular RESPIRATORY: No accessory muscle use. Clear to auscultation. Breath sounds equal bilaterally. GASTROINTESTINAL: Abdomen soft, non-tender, nondistended. MUSCULOSKELETAL: Extremities without clubbing, cyanosis, or edema. No obvious deformities. Resolved erythema dorsum of left foot with improved tenderness and swelling NEUROLOGICAL: Awake and alert. No obvious cranial nerve deficits. Motor grossly within normal limits. Five out of 5 muscle strength in the arms and legs. Normal speech. Assessment and Plan - Assessment (1) Acute on chronic kidney failure Code(s): N17.9 - Acute kidney failure, unspecified; N18.9 - Chronic kidney disease, unspecified Status: Acute (2) Atrial fibrillation with RVR Code(s): I48.91 - Unspecified atrial fibrillation Status: Acute (3) COPD (chronic obstructive pulmonary disease) Code(s): J44.9 - Chronic obstructive pulmonary disease, unspecified Status: Acute (4) CLL (chronic lymphocytic leukemia) Code(s): C91.90 - Lymphoid leukemia, unspecified not having achieved remission Status: Acute - Plan Patient is relatively hypotensive since initial presentation was hypertension Feels better as likely ATN which is resolving creatinine continues to decline Stable combination of medication and low blood pressure Cause elevation in the creatinine follow BMP Protein electrophoresis negative, SANDRA negative ultrasound negative Discharge planning per primary team I will sign off
--- NOTE | 2018-03-23 15:12 | P.DS ---
Date of admission: 03/16/18 23:33 Primary care physician: [facility] Brief History from admission: 72-year-old male with history of atrial febrile presents for an evaluation of left foot pain. He reports that it started 3 days ago. He does not recall any injury. In the emergency department he was noted to be in atrial fibrillation with RVR, rate in the 150s-180s. In retrospect he does report mild shortness of breath and palpitations over the past few days as well. He reports that he has been compliant with his numerous medications. According to chart review he is on Eliquis, diltiazem, as well as several other medications. He was seen here in late December for evaluation of atrial fibrillation with RVR. [facility] is a patient at the [facility]. No other complaints. DS: Medications - Discharge Medications Prescriptions: cephalexin 500 mg PO Q6HR #20 cap diltiazem HCl [Cardizem CD] 180 mg PO DAILY #30 cap midodrine 5 mg PO TID #90 tab oxycodone 10 mg PO Q6H PRN #12 tab PRN Reason: Acute Pain pantoprazole 40 mg PO HS #30 tab prednisone 20 mg PO DAILY #3 tab DS: Summary Hospital Course: Sepsis -Cellulitis of left foot, currently no signs concerning for necrotizing soft tissue infection. Improving -Broad-spectrum antibiotics (vanco/ zosyn) switched to Keflex -Follow-up cultures and de-escalate per sensitivity. Negative to date -Lactate cleared, no longer trending -Change dilaudid to oxycodone for PRN pain -With the addition of prednisone left foot discomfort much improved. ESR and CRP elevated as expected and may negative. Uric acid within normal limits. Foot x-ray independently reviewed with no fracture but has osteoarthritis first MTP joint A. 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 [place] to be secondary to ATN (from episode of hypotension) which is improving -secondary to decreased oral intake and from sepsis. Also with borderline low BP. Urinary eosinophils and renal ultrasound negative. Creatinine continues to improve status post IV albumin 1 and IV hydration. Negative protein electrophoresis. Appreciate nephrology assistance. DVT GI prophylaxis -SCDs -Does not need SQ heparin as he is on Eliquis -Does not need stress ulcer prophylaxis as he is tolerating cardiac diet - Time Spent with Patient Total time spent providing and/or coordinating discharge services: Greater than 30 minutes - Quality: VTE Deep Vein Thrombosis/Pulmonary Embolism Present on Admission: No Exam Vital signs: Vital Signs 03/22/18 16:00 03/22/18 18:08 03/22/18 20:15 Temperature 97.2 F L 96.9 F L Pulse Rate 62 80 Respiratory Rate 18 18 17 Blood Pressure 98/55 L 136/63 Pulse Oximetry 93 L 94 L 03/22/18 22:57 03/23/18 00:18 03/23/18 08:00 Temperature 97.1 F L 98.0 F Pulse Rate 81 90 Respiratory Rate 18 16 17 Blood Pressure 132/68 154/112 H Pulse Oximetry 95 94 L 03/23/18 09:30 03/23/18 12:00 Temperature 95.5 F L Pulse Rate 63 Respiratory Rate 19 Blood Pressure 148/74 H 153/76 H Pulse Oximetry 93 L Intake & Output 03/22/18 03/23/18 03/23/18 18:59 06:59 18:59 Intake Total 600 / 600 1974 / 1974 300 / 300 Output Total 450 / 450 1000 / 1000 Balance 150 / 150 975 / 975 300 / 300 Weight 73 kg Intake: IV 0 / 0 1215 / 1215 300 / 300 1/2 Normal Saline Inj 1,000 ML 0 / 0 700 / 700 300 / 300 @ 70 mls/hr IV.CONT .[id number] [facility] Rx#:[id number] Oral 600 / 600 760 / 760 Output: Urine 450 / 450 1000 / 1000 Other: Date of Last Bowel Movement 03/22/18 03/22/18 03/22/18 # Bowel Movements 1 1 Narrative: GENERAL: Well-developed, well-nourished in no distress. SKIN: Warm and dry. CARDIOVASCULAR: Irregularly irregular RESPIRATORY: No accessory muscle use. Clear to auscultation. Breath sounds equal bilaterally. GASTROINTESTINAL: Abdomen soft, non-tender, nondistended. MUSCULOSKELETAL: Extremities without clubbing, cyanosis, or edema. No obvious deformities. Resolved erythema dorsum of left foot with improved tenderness and swelling NEUROLOGICAL: Awake and alert. No obvious cranial nerve deficits. Motor grossly within normal limits. Five out of 5 muscle strength in the arms and legs. Normal speech. Results Procedures completed during hospitalization: none Labs on day of discharge: Labs from last 24 hours 03/23/18 03/23/18 03/23/18 05:57 05:57 05:57 Sodium 137 Potassium 3.7 Chloride 104 Carbon Dioxide 24.3 Anion Gap 9 BUN 24 H 24 H Cancelled Creatinine 1.84 H 1.92 H Estimated GFR 36 L 35 L Random Glucose 133 H Calcium 8.3 L Magnesium 1.9 SANDRA Screen 03/20/18 18:30 Sodium Potassium Chloride Carbon Dioxide Anion Gap BUN Creatinine Estimated GFR Random Glucose Calcium Magnesium SANDRA Screen Neg - Impressions ITS Impressions Chest X-Ray 03/16/18 21:50 CONCLUSION: Questionable mild interstitial opacities in the lower lung zones bilaterally. No focal airspace consolidation is present and there is no pleural effusion. Foot X-Ray 03/16/18 21:50 CONCLUSION: No acute left foot abnormality is identified. 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 Tibia/Fibula X-Ray 03/16/18 22:08 CONCLUSION: No acute left leg abnormality is identified. Abdomen/Bladder Ultrasound 03/20/18 00:00 CONCLUSION: 1. Unremarkable exam with no hydronephrosis. Discharge Plan - Discharge Disposition Patient Disposition: Discharge to SNF - Discharge Condition Condition: Stable - Discharge Order Discharge Orders: Discharge Order (Routine); Ordered 03/23/18 Ordered By: Edmond Burks - Physicians Team Primary Care Provider: [facility] Attending Provider: Edmond Burks Other Providers: Aidan Avilez MD ; Juice Quan MD ; [facility]
== END 2018-03-23 16:15 ==
LOC: NEPC 21:05 → NEDA 23:33 → HIMC 03-17 00:25 → N07 03-19 19:18
PROVIDERS: ADMIT Internal Medicine; ATTEND Internal Medicine

== ENCOUNTER 2018-05-04 07:12 | Observation (INO) ==
--- NOTE | 2018-05-04 07:52 | XR ---
EXAM DATE: 05/04/2018 7:20 AM EDT AGE/SEX: 72 years / Male INDICATIONS: Short of breath CLINICAL DATA: This is the patient's initial encounter. Patient reports that signs and symptoms have been present for 1 day and indicates a pain score of 0/10. MEDICAL/SURGICAL HISTORY: Chronic obstructive pulmonary disease. Congestive heart failure. Le ukemia. CVA, A-fib Cholecystectomy. COMPARISON: C, CHEST 1V SINGLE AP, 03/16/2018. . FINDINGS: There is moderate perivascular mixed interstitial and alveolar process worse in the right m id and lower lung julio not present on the prior exam. Heart and mediastinum are unremarkable for technique. CONCLUSION: Moderate mixed interstitial and alveolar process worse in the right lung not present previously may r epresent pulmonary edema, however the appearance is nonspecific and follow-up is suggested after appr opriate clinical therapy. Electronically signed by: Tracie Siegel MD 05/04/2018 7:50 AM EDT
[2018-05-04 07:53] LABS: Baso # (Auto) 0.1 th/mm3 (0.0-0.2); Baso % (Auto) 0.4 % (0.0-2.0); Eos # (Auto) 0.1 th/mm3 (0.0-0.4); Eos % (Auto) 0.8 % (0.0-4.0); Hematocrit 35.6 % (39.0-51.0); Hemoglobin 11.1 gm/dL (13.0-17.0); Lymph # (Auto) 8.7 th/mm3 (1.0-4.8); Lymph % (Auto) 51.3 % (9.0-44.0); Mean Corpuscular HGB Conc 31.3 % (32.0-36.0); Mean Corpuscular Hemoglobin 26.9 pg (27.0-34.0); Mean Platelet Volume 10.5 fL (7.0-11.0); Mono # (Auto) 1.5 th/mm3 (0.0-0.9); Mono % (Auto) 8.8 % (0.0-8.0); Neut # (Auto) 6.5 th/mm3 (1.8-7.7); Neut % (Auto) 38.7 % (16.0-70.0); Platelet Count 258 th/mm3 (150-450); Red Blood Count 4.14 mil/mm3 (4.50-5.90); Red Cell Distribution Width 19.7 % (11.6-17.2); White Blood Count 16.9 th/mm3 (4.0-11.0)
[2018-05-04 08:06] LABS: Activated Partial Thrombo Time 25.7 sec (24.3-30.1); Prothrombin Time 10.3 sec (9.8-11.6)
[2018-05-04 08:09] LABS: Albumin 2.4 g/dL (3.4-5.0); Anion Gap 10 meq/L (5-15); Aspartate Aminotransferase 34 U/L (15-37); Blood Urea Nitrogen 20 mg/dL (7-18); Calcium 7.7 mg/dL (8.5-10.1); Carbon Dioxide 23.2 meq/L (21.0-32.0); Chloride 111 meq/L (98-107); Glomerular Filtration Rate 63 mL/min (>89); Glucose,Random 133 mg/dL (74-106); Potassium 4.4 meq/L (3.5-5.1); Sodium 144 meq/L (136-145)
[2018-05-04 08:11] LABS: Alanine Aminotransferase 35 U/L (12-78)
[2018-05-04] MEDS ORDERED: Vancomycin Inj 1 GM/200 ML PIGGYBACK IV.SIG ONE (08:11)
[2018-05-04 08:14] LABS: Alkaline Phosphatase 185 U/L (45-117); Total Protein 6.2 g/dL (6.4-8.2); Troponin I 0.03 ng/mL (0.02-0.05)
[2018-05-04 08:15] LABS: Creatine Kinase 56 U/L (39-308)
--- NOTE | 2018-05-04 08:15 | ED ---
HPI General Chief complaint: Shortness of Breath/Dyspnea Stated complaint: SOB Time Seen by Provider: 05/04/18 07:19 Source: patient Mode of arrival: ambulatory Limitations: no limitations History of Present Illness HPI narrative: Patient is a 72 year old male who is BIBEMS due to SOB. He says it has been going on for a few days and getting worse. He has history of CHF, afib, COPD. He says he was recently discharged from the rehab he was sent to after his latest hospital stay and that is when he started to feel badly again. He says he is taking all of his medications as prescribed, but he is not sure what they are. He denies chest pain. He denies fever or chills. He has been using albuterol at home without relief. Severity is moderate. Related Data Home Medications Medication Instructions Recorded Confirmed simvastatin 80 mg PO DAILY 03/16/18 05/04/18 Previous Rx's Medication Instructions Recorded apixaban [Eliquis] 5 mg PO BID tab 01/10/18 aspirin 81 mg PO DAILY tab 01/10/18 methimazole [Tapazole] 5 mg PO DAILY tab 01/10/18 carvedilol [Coreg] 3.125 mg PO BID #0 tab 03/21/18 cephalexin 500 mg PO Q6HR #20 cap 03/21/18 diltiazem HCl [Cardizem CD] 180 mg PO DAILY #30 cap 03/21/18 midodrine 5 mg PO TID #90 tab 03/21/18 oxycodone 10 mg PO Q6H PRN #12 tab 03/21/18 pantoprazole 40 mg PO HS #30 tab 03/21/18 prednisone 20 mg PO DAILY #3 tab 03/23/18 Allergies Allergy/AdvReac Type Severity Reaction Status Date / Time No Known Allergies Allergy Verified 04/16/18 17:32 Review of Systems ROS: all other systems reviewed are negative Constitutional Denies chills and Denies fever(s) ENT Denies dizziness Cardiovascular Denies chest pain and Reports dyspnea Respiratory Reports cough and Reports dyspnea Gastrointestinal Denies nausea and Denies vomiting Musculoskeletal Denies myalgias and Denies arthralgias Integumentary/Breasts Denies sores and Denies wounds Neurologic Denies focal weakness and Denies numbness [facility] Medical History Medical History Afib (Acute) CHF (congestive heart failure) (Acute) COPD (chronic obstructive pulmonary disease) (Acute) CVA (cerebral vascular accident) (Acute) History of stroke (Acute) Hx of cardiac murmur (Acute) Hypertension (Acute) Leukemia (Acute) Surgical History Surgical History Hx of cholecystectomy (Acute) Family History Family History Other Heart disease Social History Social History Substance History: No History of Abuse Second Hand Smoke Exposure: Yes Smoking Status: Former smoker Tobacco Type: Cigarettes How Often Do You Have a Drink Containing Alcohol: Never Recent Out of Country Travel within the Last 8 Weeks: No Immunization History Tetanus Immunization: <5 Years Exam Narrative Exam Narrative: GENERAL: Awake and alert, in mild respiratory distress. SKIN: Focused skin assessment warm/dry. HEAD: Atraumatic. Normocephalic. EYES: Pupils equal and round. No scleral icterus. No injection or drainage. ENT: Mucous membranes pink and moist. NECK: Trachea midline. No JVD. CARDIOVASCULAR: Tachycardia. No murmur appreciated. RESPIRATORY: Tachypnea, wheezing, coarse breath sounds. GASTROINTESTINAL: Abdomen soft, non-tender, nondistended. MUSCULOSKELETAL: No obvious deformities. No clubbing. No cyanosis. 1+ pitting edema bilaterally. NEUROLOGICAL: Awake and alert. No obvious cranial nerve deficits. Motor grossly within normal limits. Normal speech. PSYCHIATRIC: Appropriate mood and affect; insight and judgment normal. Course Initial Documented Vital Signs Temperature 97.8 F 05/04/18 07:17 Last Documented Vital Signs Temperature 97.8 F 05/04/18 07:17 Pulse Rate 83 05/04/18 10:15 Respiratory Rate 22 05/04/18 10:05 Blood Pressure 103/76 05/04/18 10:15 Pulse Oximetry 94 L 05/04/18 10:15 Medical Decision Making MDM Narrative Medical decision making narrative: Patient is a 72 year old male brought in by EMS due to SOB. On arrival, he is obviously short of breath and found to be tachycardic in the 140s. IV established, labs sent. Patient given duoneb treatments and cardizem. Patient's pulse rate improved with cardizem. He did requrie a second bolus and drip was ordered. CXR shows consolidation. CTA chest performed shows no PE, there is evidence of pneumonia, pulmonary edema. Patient given Cefepime, Vancomyinc, Lasix. Admitted for further management. Medical Screen Exam Complete: Yes Emergency Medical Condition: Yes Differential Diagnosis Differential Diagnosis: COPD exacerbation versus A. fib versus CHF exacerbation versus pneumonia Medical Records Medical records reviewed: Yes I reviewed the patient's medical records. Lab Data Lab results reviewed: Yes I reviewed the patient's lab results. Result diagrams: 05/04/18 07:20 05/04/18 07:20 Lab Results 05/04/18 05/04/18 05/04/18 Range/Units 07:20 07:20 07:20 WBC 16.9 H (4.0-11.0) th/mm3 RBC 4.14 L (4.50-5.90) mil/mm3 Hgb 11.1 L (13.0-17.0) gm/dL Hct 35.6 L (39.0-51.0) % MCV 86.0 (80.0-100.0) fL MCH 26.9 L (27.0-34.0) pg MCHC 31.3 L (32.0-36.0) % RDW 19.7 H (11.6-17.2) % Plt Count 258 D (150-450) th/mm3 MPV 10.5 (7.0-11.0) fL Prelim Diff (Auto) Slide review pending Neut % (Auto) 38.7 (16.0-70.0) % Lymph % (Auto) 51.3 H (9.0-44.0) % [place]christ % (Auto) 8.8 H (0.0-8.0) % Eos % (Auto) 0.8 (0.0-4.0) % Baso % (Auto) 0.4 (0.0-2.0) % Neut # (Auto) 6.5 (1.8-7.7) th/mm3 Lymph # (Auto) 8.7 H (1.0-4.8) th/mm3 [place]christ # (Auto) 1.5 H (0.0-0.9) th/mm3 Eos # (Auto) 0.1 (0.0-0.4) th/mm3 Baso # (Auto) 0.1 (0.0-0.2) th/mm3 WBC Differential Manual diff final Seg Neuts % (Manual) 41 (16-70) % Band Neuts % (Manual) 4 (0-6) % Lymphocytes % (Manual) 53 H (9-44) % Monocytes % (Manual) 2 (0-8) % Abs Neuts (Manual) 7.6 (1.8-7.7) th/mm3 Differential Comment . Smudge Cells Present H (None) Platelet Estimate Normal (Normal) Platelet Morphology Enlarged H (Normal) Ovalocytes 1+ H (None) Acanthocytes (Spur) 1+ H (None) PT 10.3 (9.8-11.6) sec INR 1.0 Ratio APTT 25.7 (24.3-30.1) sec Sodium 144 (136-145) meq/L Potassium 4.4 (3.5-5.1) meq/L Chloride 111 H (98-107) meq/L Carbon Dioxide 23.2 (21.0-32.0) meq/L Anion Gap 10 (5-15) meq/L BUN 20 H (7-18) mg/dL Creatinine 1.15 (0.60-1.30) mg/dL Estimated GFR 63 L (>89) mL/min Random Glucose 133 H (74-106) mg/dL Calcium 7.7 L (8.5-10.1) mg/dL Total Bilirubin 0.4 (0.2-1.0) mg/dL AST 34 (15-37) U/L ALT 35 (12-78) U/L Alkaline Phosphatase 185 H (45-117) U/L Total Creatine Kinase 56 (39-308) U/L Troponin I 0.03 (0.02-0.05) ng/mL B-Natriuretic Peptide (0-100) pg/mL Total Protein 6.2 L (6.4-8.2) g/dL Albumin 2.4 L (3.4-5.0) g/dL 05/04/18 Range/Units 07:20 WBC (4.0-11.0) th/mm3 RBC (4.50-5.90) mil/mm3 Hgb (13.0-17.0) gm/dL Hct (39.0-51.0) % MCV (80.0-100.0) fL MCH (27.0-34.0) pg MCHC (32.0-36.0) % RDW (11.6-17.2) % Plt Count (150-450) th/mm3 MPV (7.0-11.0) fL Prelim Diff (Auto) Neut % (Auto) (16.0-70.0) % Lymph % (Auto) (9.0-44.0) % [place]christ % (Auto) (0.0-8.0) % Eos % (Auto) (0.0-4.0) % Baso % (Auto) (0.0-2.0) % Neut # (Auto) (1.8-7.7) th/mm3 Lymph # (Auto) (1.0-4.8) th/mm3 [place] # (Auto) (0.0-0.9) th/mm3 Eos # (Auto) (0.0-0.4) th/mm3 Baso # (Auto) (0.0-0.2) th/mm3 WBC Differential Seg Neuts % (Manual) (16-70) % Band Neuts % (Manual) (0-6) % Lymphocytes % (Manual) (9-44) % Monocytes % (Manual) (0-8) % Abs Neuts (Manual) (1.8-7.7) th/mm3 Differential Comment Smudge Cells (None) Platelet Estimate (Normal) Platelet Morphology (Normal) Ovalocytes (None) Acanthocytes (Spur) (None) PT (9.8-11.6) sec INR Ratio APTT (24.3-30.1) sec Sodium (136-145) meq/L Potassium (3.5-5.1) meq/L Chloride (98-107) meq/L Carbon Dioxide (21.0-32.0) meq/L Anion Gap (5-15) meq/L BUN (7-18) mg/dL Creatinine (0.60-1.30) mg/dL Estimated GFR (>89) mL/min Random Glucose (74-106) mg/dL Calcium (8.5-10.1) mg/dL Total Bilirubin (0.2-1.0) mg/dL AST (15-37) U/L ALT (12-78) U/L Alkaline Phosphatase (45-117) U/L Total Creatine Kinase (39-308) U/L Troponin I (0.02-0.05) ng/mL B-Natriuretic Peptide 420 H (0-100) pg/mL Total Protein (6.4-8.2) g/dL Albumin (3.4-5.0) g/dL Imaging Data Radiologist's impression: Chest X-Ray 05/04/18 07:20 CONCLUSION: Moderate mixed interstitial and alveolar process worse in the right lung not present previously may represent pulmonary edema, however the appearance is nonspecific and follow-up is suggested after appropriate clinical therapy. Chest CTA 05/04/18 08:16 CONCLUSION: 1. Slight decrease in size of bilateral pleural effusions and there are bibasilar parenchymal consolidations may represent pneumonia not present previously. Superimposed interstitial process may represent pulmonary edema. 2. There is no evidence of PE for technique. ECG Data EKG Prior to Arrival: No Attestation: I personally reviewed and interpreted this ECG as follows: Interpretation: Atrial fibrillation with a rapid rate of 148 Discharge Plan Discharge Disposition Patient Disposition: 30 Still Patient Discharge Condition Condition: Stable Discharge Details Diagnosis: Atrial fibrillation with RVR, CHF exacerbation, Hypoxia, Pneumonia Physicians Team ED Provider: Mary Zarco Attending Provider: Jeffery Torres Discharge Interventions Interventions: Vital Signs Last Done: 05/04/18 10:05 Status ED Status: Admitted Patient
--- NOTE | 2018-05-04 09:15 | CT ---
EXAM DATE: 05/04/2018 8:27 AM EDT AGE/SEX: 72 years / Male INDICATIONS: Short of breath. CLINICAL DATA: This is the patient's initial encounter. Patient reports that signs and symptoms have been present for 2 days and indicates a pain score of 0/10. MEDICAL/SURGICAL HISTORY: Congestive heart failure. Chronic obstructive pulmonary disease. Cerebr ovascular disease. Hypertension. Cholecystectomy. RADIATION DOSE: 9.60 CTDI (mGy) COMPARISON: [facility] – [place], CT PULMONARY ANGIOGRAM, 01/09/2018. . TECHNIQUE: Volumetric scanning was performed using a multi-row detector CT scanner during bolus infu kobe of 75 ml Omnipaque 350 (iohexol) nonionic water-soluble contrast as a single exam dose. The morro a was post processed with a variety of visualization algorithms including full volume maximum intensi ty projection and sliding thin slab reformation. Using automated exposure control and adjustment of the mA and/or kV according to patient size, radiation dose was kept as low as reasonably achievable t o obtain optimal diagnostic quality images. DICOM format image data is available electronically for review and comparison. FINDINGS: Tiny pericardial effusion is seen probably of no clinical significance. Coronary artery calcificatio ns are seen typically seen with coronary artery disease and clinical correlation and evaluation is ellington ggested. Moderate size bilateral pleural effusion are seen. There is bibasilar interstitial prominenc e and approximate 2.3 cm consolidation versus mass left lower lobe and approximate 1.8 cm probable co nsolidation right lower lobe. There is underlying COPD not significantly changed. CONCLUSION: 1. Slight decrease in size of bilateral pleural effusions and there are bibasilar parenchymal consol idations may represent pneumonia not present previously. Superimposed interstitial process may repres ent pulmonary edema. 2. There is no evidence of PE for technique. Electronically signed by: Tracie Siegel MD 05/04/2018 9:14 AM EDT
[2018-05-04] MEDS ORDERED: dilTIAZem Inj 125 MG in Sodium Chlor 0.9% Inj 100 ML IV.CONT PRN (09:43)
[2018-05-04] MEDS ORDERED: Vancomycin Inj 1,000 MG in Sodium Chlor 0.9% Inj 250 ML IV.SIG ONE (10:00)
[2018-05-04 10:11] LABS: Monocytes 2 % (0-8)
[2018-05-04 10:12] LABS: Acanthocytes 1+; Ovalocytes 1+; Platelet Estimate Normal (Normal); Smudge Cells Present
[2018-05-04 10:14] LABS: Lymphocytes 53 % (9-44)
[2018-05-04] MEDS ORDERED: dilTIAZem 30 MG Tablet PO SCH (10:50)
--- NOTE | 2018-05-04 10:50 | P.HP ---
History of Present Illness Primary Care Physician: [facility] History of Present Illness: 72 y/o WM Being admitted for shortness of breath. Patient was in his usual state of health until about 3-4 days ago when he started feeling short of breath. Says that it progressed over time and any level of exertion would worsen it. Denies having any chest pain. Denies any nausea vomiting fevers or chills. Does report having a cough with a productive sputum. Prior to the onset of symptoms patient had recently arrived home from a rehab facility for reconditioning after a hospitalization he just had for cellulitis about 1 month ago. Denies any worsening acute lower extremity swelling. Patient says he was discontinued off of either carvedilol by some physician recently because it was possibly interfering with his blood pressure. RN verified his home dose of coreg prior to rehab was 25 mg bid, whereas discharge meds from rehab included coreg 6.25 mg bid. Pt says that he was told to wear oxygen "as needed" but did not require continuous active supplementation on discharge from [facility] rehab. In the emergency department he was noted to be tachycardic to the 140s. Chest x -ray which I independently reviewed shows diffuse bilateral infiltrates suggestive of pulmonary edema. BNP in the 400s. CTA was performed which independently reviewed which showed bilateral pleural effusions, right greater than left, with very mild nonspecific infiltrates bilaterally in the lower julio, radiology read is negative for PE. ER physician told me lung julio demonstrated crackles and wheezing. Was given Cardizem twice with significant improvement in pulse down into the 80s. Patient says he feels "good now" after the medicines were infused and says he is no longer short of breath. Review of Systems All other systems reviewed negative except as stated in HPI PMFSH - History History Provided By: Patient - Medical History Medical History: Medical History (Last Reviewed 05/04/18 @ 10:49 by Jeffery Torres MD) Afib CHF (congestive heart failure) COPD (chronic obstructive pulmonary disease) CVA (cerebral vascular accident) History of stroke Hx of cardiac murmur Hypertension Leukemia - Surgical History Surgical History: Surgical History (Last Reviewed 05/04/18 @ 10:49 by Jeffery Torres MD) Hx of cholecystectomy - Family History Family History: Family History (Last Updated 05/04/18 @ 10:57 by Jeffery Torres MD) Other Heart disease - Social History I have reviewed the patient's Social History: Yes - Tobacco History Second Hand Smoke Exposure: Yes Smoking Status: Former smoker Tobacco Type: Cigarettes - Alcohol History How Often Do You Have a Drink Containing Alcohol: Never - Substance Use History Substance History: No History of Abuse - Travel History Recent Travel Out of the Country Within the Last 8 Weeks: No - Immunization History Tetanus Immunization: <5 Years Medications and Allergies Active Medications: Active Medications Albuterol (Duoneb Neb (Prn)) 1 ampul NEB Q15M PRN PRN Reason: SHORTNESS OF BREATH Last Admin: 05/04/18 08:27 Dose: 1 ampul Vancomycin HCl 1,000 mg/ (Sodium Chloride) 250 mls @ 250 mls/hr IV.SIG ONCE ONE Stop: 05/04/18 10:59 Last Admin: 05/04/18 10:10 Dose: 250 mls/hr Diltiazem HCl 125 mg/ Sodium (Chloride) 125 mls @ 5 mls/hr IV.CONT TITRATE PRN ; Protocol PRN Reason: Per Protocol Sodium Chloride (Ns Flush) 2 ml IV.FLUSH BID FREDRICK Sodium Chloride (Ns Flush) 2 ml IV.FLUSH PRN PRN PRN Reason: FLUSH AFTER USING IV ACCESS Allergies Allergy/AdvReac Type Severity Reaction Status Date / Time No Known Allergies Allergy Verified 04/16/18 17:32 Home Medications Medication Instructions Recorded Confirmed Type simvastatin 80 mg PO DAILY 03/16/18 05/04/18 History ibrutinib 420 mg PO DAILY 05/04/18 05/04/18 History trazodone 100 mg PO DAILY 05/04/18 05/04/18 History Exam Vital signs: Vital Signs 05/04/18 07:17 05/04/18 07:20 05/04/18 07:26 Temperature 97.8 F Pulse Rate 148 H 136 H Respiratory Rate 24 Blood Pressure 137/83 127/89 Pulse Oximetry 97 05/04/18 07:40 05/04/18 09:20 05/04/18 10:05 Temperature Pulse Rate 97 H 109 H 111 H Respiratory Rate 20 20 22 Blood Pressure 121/66 108/68 120/70 Pulse Oximetry 94 L 93 L 97 05/04/18 10:15 Temperature Pulse Rate 83 Respiratory Rate Blood Pressure 103/76 Pulse Oximetry 94 L Intake & Output 05/03/18 05/04/18 05/04/18 18:59 06:59 18:59 Intake Total 100 / 100 Balance 100 / 100 Weight 63.503 kg Intake: IV 100 / 100 Maxipime Inj 1,000 MG In NS Inj 100 / 100 100 ML @ 200 mls/hr IV.SIG ONCE ONE Rx#:[id number] Narrative: VS: afebrile GENERAL: NAD, elderly male SKIN: Warm and dry. EYES: Pupils equal and round. No scleral icterus. No injection or drainage. ENT: No nasal bleeding or discharge. Mucous membranes pink and moist. CARDIOVASCULAR: Regular rate and rhythm. no murmurs RESPIRATORY: No accessory muscle use. Good breath sounds bilaterally with very trace crackles heard only in the bases GASTROINTESTINAL: Abdomen soft, non-tender, nondistended. Extremities: No clubbing, cyanosis, or edema. No obvious deformities. MUSCULOSKELETAL: Adequate muscle bulk and tone for age and habitus NEUROLOGICAL: Awake and alert. No obvious cranial nerve deficits. No facial droop nor slurred speech noted. PSYCHIATRIC: Appropriate mood and affect; insight and judgment normal. Results - Labs CBC & Chem 7: 05/05/18 07:37 05/04/18 07:20 Labs: Laboratory Results - last 24 hr 05/04/18 05/04/18 05/04/18 07:20 07:20 07:20 WBC 16.9 H RBC 4.14 L Hgb 11.1 L Hct 35.6 L MCV 86.0 MCH 26.9 L MCHC 31.3 L RDW 19.7 H Plt Count 258 D MPV 10.5 Prelim Diff (Auto) Slide review pending Neut % (Auto) 38.7 Lymph % (Auto) 51.3 H [place] % (Auto) 8.8 H Eos % (Auto) 0.8 Baso % (Auto) 0.4 Neut # (Auto) 6.5 Lymph # (Auto) 8.7 H [place] # (Auto) 1.5 H Eos # (Auto) 0.1 Baso # (Auto) 0.1 WBC Differential Manual diff final Seg Neuts % (Manual) 41 Band Neuts % (Manual) 4 Lymphocytes % (Manual) 53 H Monocytes % (Manual) 2 Abs Neuts (Manual) 7.6 Differential Comment . Smudge Cells Present H Platelet Estimate Normal Platelet Morphology Enlarged H Ovalocytes 1+ H Acanthocytes (Spur) 1+ H PT 10.3 INR 1.0 APTT 25.7 Sodium 144 Potassium 4.4 Chloride 111 H Carbon Dioxide 23.2 Anion Gap 10 BUN 20 H Creatinine 1.15 Estimated GFR 63 L Random Glucose 133 H Calcium 7.7 L Total Bilirubin 0.4 AST 34 ALT 35 Alkaline Phosphatase 185 H Total Creatine Kinase 56 Troponin I 0.03 B-Natriuretic Peptide Total Protein 6.2 L Albumin 2.4 L 05/04/18 07:20 WBC RBC Hgb Hct MCV MCH MCHC RDW Plt Count MPV Prelim Diff (Auto) Neut % (Auto) Lymph % (Auto) [place] % (Auto) Eos % (Auto) Baso % (Auto) Neut # (Auto) Lymph # (Auto) [place] # (Auto) Eos # (Auto) Baso # (Auto) WBC Differential Seg Neuts % (Manual) Band Neuts % (Manual) Lymphocytes % (Manual) Monocytes % (Manual) Abs Neuts (Manual) Differential Comment Smudge Cells Platelet Estimate Platelet Morphology Ovalocytes Acanthocytes (Spur) PT INR APTT Sodium Potassium Chloride Carbon Dioxide Anion Gap BUN Creatinine Estimated GFR Random Glucose Calcium Total Bilirubin AST ALT Alkaline Phosphatase Total Creatine Kinase Troponin I B-Natriuretic Peptide 420 H Total Protein Albumin - Imaging Impressions Chest X-Ray 05/04/18 07:20 CONCLUSION: Moderate mixed interstitial and alveolar process worse in the right lung not present previously may represent pulmonary edema, however the appearance is nonspecific and follow-up is suggested after appropriate clinical therapy. Chest CTA 05/04/18 08:16 CONCLUSION: 1. Slight decrease in size of bilateral pleural effusions and there are bibasilar parenchymal consolidations may represent pneumonia not present previously. Superimposed interstitial process may represent pulmonary edema. 2. There is no evidence of PE for technique. Caprini VTE Risk Assessment Caprini VTE Risk Assessment: Moderate/High Risk (score >= 2) Caprini Risk Assessment Model: Point Value = 1 Point Value = 2 Point Value = 3 Point Value = 5 Age 41-60 Minor surgery BMI > 25 kg/m2 Swollen legs Varicose veins or History of unexplained or recurrent spontaneous Oral contraceptives or hormone replacement Sepsis (< 1 month) Serious lung disease, including pneumonia (< 1 month) Abnormal pulmonary function Acute myocardial infarction Congestive heart failure (< 1 month) History of inflammatory bowel disease Medical patient at bed rest Age 61-74 Arthroscopic surgery Major open surgery (> 45 min) Laparoscopic surgery (> 45 min) Malignancy Confined to bed (> 72 hours) Immobilizing plaster cast Central venous access Age >= 75 History of VTE Family history of VTE Factor V Leiden Prothrombin [id number] Lupus anticoagulant Anticardiolipin antibodies Elevated serum homocysteine Heparin-induced thrombocytopenia Other congenital or acquired thrombophilia Stroke (< 1 month) Elective arthroplasty Hip, pelvis, or leg fracture Acute spinal cord injury (< 1 month) Prophylaxis Regimen: Total Risk Factor Score Risk Level Prophylaxis Regimen 0-1 Low Early ambulation 2 Moderate Order ONE of the following: *Sequential Compression Device (SCD) *Heparin 5000 units SQ BID 3-4 Higher Order ONE of the following medications: *Heparin 5000 units SQ TID *Enoxaparin/Lovenox 40 mg SQ daily (WT < 150 kg, CrCl > 30 mL/min) *Enoxaparin/Lovenox 30 mg SQ daily (WT < 150 kg, CrCl > 10-29 mL/min) *Enoxaparin/Lovenox 30 mg SQ BID (WT < 150 kg, CrCl > 30 mL/min) AND/OR *Sequential Compression Device (SCD) 5 or more Highest Order ONE of the following medications: *Heparin 5000 units SQ TID (Preferred with Epidurals) *Enoxaparin/Lovenox 40 mg SQ daily (WT < 150 kg, CrCl > 30 mL/min) *Enoxaparin/Lovenox 30 mg SQ daily (WT < 150 kg, CrCl > 10-29 mL/min) *Enoxaparin/Lovenox 30 mg SQ BID (WT < 150 kg, CrCl > 30 mL/min) AND *Sequential Compression Device (SCD) Assessment and Plan - Plan 72 y/o WM admitted for SOB. Clinically stable at the time of evaluation for admission. SOB -CTA neg for PE, -Multifactorial likely pulmonary edema and afib rvr, clinically not impressive for PNA - improved post Cardizem bolus and lasix afib w/ RVR - Improved status post IV Cardizem, continue short acting oral Cardizem 60 mg qid for now; RN verified home dose to be 180 mg ER -We will increase Coreg to at least 6.25 mg twice daily - Lovenox while inpatient, transition back to apixaban upon discharge - hold home midodrine for now since BP is stable pulm edema effusions, possible infiltrates - Clinically is not impressive for PNA, monitor clinically for any fevers and/ or sputum production - s/p IV lasix, Continue IV Lasix - EF of 40-45% from 2 yrs ago, will order echo today, may need to start DANNY-i - procalcitonin ordered, if elevated and PNA becomes clinically evident then consider continuation of abx Leukocytosis Possibly stress induced from A. fib with RVR versus possible steroids (still pending verification from SNF) Repeat CBC in a.m. copd -Appears to be stable at this time, continue home albuterol -was not discharged on any prednisone from [facility] erab per nursing so we will hold off on steroids at this time. -on RA at this time -PFTs performed 2 years ago showed moderate obstructive airway disease but no post-bronchodilator study was done, start symbicort Hyperthyroidism Continue home methimazole CLL Stable platelets, follow-up with oncology as outpatient [place] Instructed nursing to find out most recent discharge medical reconciliation so that the patient's cardiac meds can be resumed or adjusted accordingly. Discharge Planning: Possible discharge jacob if clinically stable
[2018-05-04] MEDS ORDERED: Carvedilol 6.25 MG Tablet PO SCH (12:15)
[2018-05-04] MEDS: methIMAzole 5 MG Tablet PO SCH (15:12)
[2018-05-04] MEDS: Enoxaparin Inj 60 MG/0.6 ML Syringe SQ SCH (15:12)
[2018-05-04] MEDS: dilTIAZem 60 MG Tablet PO SCH ×4 (15:12→22:23)
--- NOTE | 2018-05-04 16:14 | ECHRPT ---
Indication: HEART FAILURE CONCLUSIONS Mildly dilated left ventricle. Wall thickness is normal. The left ventricular systolic function is severely reduced with an estimated ejection fraction of 3 0%. Global hypokinesis. Mild to moderate mitral valve regurgitation. Mild aortic valve regurgitation. Moderately sclerotic aortic leaflets with adequate cusp separation and no definite aortic stenosis. There is trace tricuspid valve regurgitation. BP: / HR: Rhythm: Atrial fibrillation MEASUREMENTS (Male / Female) Normal Values Technical Quality:Fair 2D ECHO LV Diastolic Diameter PLAX 5.4 cm 4.2 - 5.9 / 3.9 - 5.3 cm LV Systolic Diameter PLAX 4.6 cm IVS Diastolic Thickness 0.7 cm 0.6 - 1.0 / 0.6 - 0.9 cm LVPW Diastolic Thickness 0.7 cm 0.6 - 1.0 / 0.6 - 0.9 cm LV Relative Wall Thickness 0.3 RV Internal Dim ED PLAX 2.5 cm LVOT Diameter 1.2 cm Aortic Root Diameter 2.0 cm LA Systolic Diameter LX 3.7 cm 3.0 - 4.0 / 2.7 - 3.8 cm M-MODE AV Cusp Separation MM 1.2 cm DOPPLER AV Peak Velocity 120.0 cm/s AV Peak Gradient 5.8 mmHg AV Mean Gradient 3.0 mmHg AV Velocity Time Integral 22.1 cm AI Peak Velocity 194.0 cm/s AI Peak Gradient 15.1 mmHg AI Pressure Half Time 416.0 ms LVOT Peak Velocity 80.8 cm/s LVOT Peak Gradient 2.6 mmHg LVOT Velocity Time Integral 14.6 cm AV Area Cont Eq vti 0.7 cm AV Area Cont Eq pk 0.8 cm Mitral E Point Velocity 105.0 cm/s Mitral A Point Velocity 46.1 cm/s Mitral E to A Ratio 2.3 LV E' Lateral Velocity 8.0 cm/s Mitral E to LV E' Lateral Ratio 13.1 LV E' Septal Velocity 6.3 cm/s Mitral E to LV E' Septal Ratio 16.6 TR Peak Velocity 229.0 cm/s TR Peak Gradient 21.0 mmHg Right Atrial Pressure 10.0 mmHg Pulmonary Artery Systolic Pressu 31.0 mmHg Right Ventricular Systolic Press 31.0 mmHg PV Peak Velocity 52.5 cm/s PV Peak Gradient 1.1 mmHg FINDINGS LEFT VENTRICLE Mildly dilated left ventricle. Wall thickness is normal. The left ventricular systolic function is severely reduced with an estimated ejection fraction of 3 0%. Global hypokinesis. RIGHT VENTRICLE The right ventricular size is normal. LEFT ATRIUM The left atrial size is normal. RIGHT ATRIUM The right atrial size is normal. ATRIAL SEPTUM Normal atrial septal thickness. AORTA The aortic root and proximal ascending aorta are normal in size on limited imaging. MITRAL VALVE Mild to moderate mitral valve regurgitation. AORTIC VALVE Mild aortic valve regurgitation. Moderately sclerotic aortic leaflets with adequate cusp separatio n and no definite aortic stenosis. TRICUSPID VALVE There is trace tricuspid valve regurgitation. PULMONARY VALVE No pulmonary valve regurgitation or stenosis. VESSELS The inferior vena cava is normal in size. PERICARDIUM No pericardial effusion. OTHER FINDINGS Possible pleural effusion Ramiro Mathias MD (Electronically Signed) Final Date:04 May 2018 16:13
[2018-05-04] MEDS: Carvedilol 6.25 MG Tablet PO SCH ×2 (21:50→22:23)
[2018-05-04] MEDS ORDERED: ALPRAZolam 0.25 MG Tablet PO ONE (22:06)
[2018-05-04] MEDS: traZODone 100 MG Tablet PO SCH (23:06)
[2018-05-05] MEDS: Enoxaparin Inj 60 MG/0.6 ML Syringe SQ SCH ×2 (03:23→18:03)
[2018-05-05 08:10] LABS: Baso # (Auto) 0.1 th/mm3 (0.0-0.2); Baso % (Auto) 0.5 % (0.0-2.0); Hematocrit 29.8 % (39.0-51.0); Hemoglobin 9.8 gm/dL (13.0-17.0); Lymph # (Auto) 2.9 th/mm3 (1.0-4.8); Lymph % (Auto) 27.7 % (9.0-44.0); Mean Corpuscular HGB Conc 32.9 % (32.0-36.0); Mean Corpuscular Hemoglobin 27.6 pg (27.0-34.0); Mean Corpuscular Volume 83.6 fL (80.0-100.0); Mean Platelet Volume 10.7 fL (7.0-11.0); Mono # (Auto) 0.3 th/mm3 (0.0-0.9); Mono % (Auto) 2.7 % (0.0-8.0); Neut # (Auto) 7.2 th/mm3 (1.8-7.7); Neut % (Auto) 69.1 % (16.0-70.0); Platelet Count 172 th/mm3 (150-450); Red Blood Count 3.56 mil/mm3 (4.50-5.90); Red Cell Distribution Width 20.2 % (11.6-17.2); White Blood Count 10.4 th/mm3 (4.0-11.0)
[2018-05-05] MEDS: Carvedilol 6.25 MG Tablet PO SCH ×2 (09:53→21:36)
[2018-05-05] MEDS: dilTIAZem 60 MG Tablet PO SCH ×4 (09:53→21:36)
[2018-05-05] MEDS: methIMAzole 5 MG Tablet PO SCH (09:56)
[2018-05-05] MEDS: Budesonide-Formoterol 80/4.5 MCG 6.9 GM Inhaler INH SCH ×2 (18:04→21:35)
--- NOTE | 2018-05-05 22:11 | P.PNIM ---
Subjective Interval history: Patient says he is feeling a little better. Denies any chest pain. Says he was discharged from rehabilitation on medications. Says he was missing some medications. Cannot tell me which ones he had or did not have. He is alert and oriented 3 Physical Exam Vital signs: Vital Signs 05/04/18 22:25 05/04/18 23:04 05/04/18 23:42 Temperature 97.6 F Pulse Rate 82 67 65 Respiratory Rate 18 Blood Pressure 102/65 123/70 Pulse Oximetry 98 97 05/05/18 00:15 05/05/18 00:35 05/05/18 01:00 Temperature Pulse Rate 61 55 L 58 L Respiratory Rate 18 Blood Pressure 97/57 L Pulse Oximetry 97 05/05/18 02:00 05/05/18 03:00 05/05/18 04:00 Temperature 97.4 F L Pulse Rate 66 63 62 Respiratory Rate 16 Blood Pressure 101/63 Pulse Oximetry 96 05/05/18 05:00 05/05/18 06:00 05/05/18 07:00 Temperature Pulse Rate 58 L 52 L 80 Respiratory Rate Blood Pressure Pulse Oximetry 05/05/18 08:00 05/05/18 09:00 05/05/18 09:59 Temperature 98 F Pulse Rate 79 65 70 Respiratory Rate 18 Blood Pressure 107/62 Pulse Oximetry 98 05/05/18 10:00 05/05/18 11:00 05/05/18 12:00 Temperature 97.7 F Pulse Rate 61 77 86 Respiratory Rate 16 Blood Pressure 110/78 Pulse Oximetry 98 05/05/18 13:00 05/05/18 14:00 05/05/18 15:00 Temperature Pulse Rate 72 68 53 L Respiratory Rate Blood Pressure Pulse Oximetry 05/05/18 16:00 05/05/18 17:00 05/05/18 18:00 Temperature 97.9 F Pulse Rate 64 54 L 62 Respiratory Rate 18 Blood Pressure 92/60 L Pulse Oximetry 98 05/05/18 20:00 Temperature 97.0 F L Pulse Rate 58 L Respiratory Rate 18 Blood Pressure 86/60 L Pulse Oximetry 94 L Intake & Output 05/05/18 05/05/18 05/06/18 06:59 18:59 06:59 Intake Total 240 / 240 860 / 860 Output Total 550 / 550 1000 / 1000 Balance -310 / -310 -140 / -140 Weight 63 kg Intake: Oral 240 / 240 860 / 860 Output: Urine 550 / 550 1000 / 1000 Other: Date of Last Bowel Movement 05/04/18 # Bowel Movements 0 Narrative: GENERAL: patient lying in bed. Appears comfortable. SKIN: Warm and dry. HEAD: Normocephalic. EYES: No scleral icterus. No injection or drainage. NECK: Supple, trachea midline. No JVD. CARDIOVASCULAR: Regular rate and rhythm without murmurs, gallops, or rubs. RESPIRATORY: Breath sounds equal bilaterally. No accessory muscle use. GASTROINTESTINAL: Abdomen soft, non-tender, nondistended. MUSCULOSKELETAL: No cyanosis, or edema. BACK: Nontender without obvious deformity. No CVA tenderness. Results - Labs CBC & Chem 7: 05/05/18 07:37 05/04/18 07:20 Laboratory Results - last 24 hr 05/05/18 05/05/18 07:37 15:17 WBC 10.4 RBC 3.56 L Hgb 9.8 L Hct 29.8 L MCV 83.6 MCH 27.6 MCHC 32.9 RDW 20.2 H Plt Count 172 D MPV 10.7 Neut % (Auto) 69.1 Lymph % (Auto) 27.7 [place] % (Auto) 2.7 Eos % (Auto) 0.0 Baso % (Auto) 0.5 Neut # (Auto) 7.2 Lymph # (Auto) 2.9 [place] # (Auto) 0.3 Eos # (Auto) 0.0 Baso # (Auto) 0.1 WBC Differential . Differential Comment Auto diff final TSH 3.350 Assessment and Plan - Plan 72 y/o WM admitted for SOB. Clinically stable at the time of evaluation for admission. SOB -CTA neg for PE, -Multifactorial likely pulmonary edema and afib rvr, clinically not impressive for PNA - improved post Cardizem bolus and lasix afib w/ RVR - Improved status post IV Cardizem, continue short acting oral Cardizem 60 mg qid for now; RN verified home dose to be 180 mg ER -We will increase Coreg to at least 6.25 mg twice daily - Lovenox while inpatient, transition back to apixaban upon discharge - hold home midodrine for now since BP is stable Systolic CHF exacerbation pulm edema effusions, possible infiltrates - Clinically is not impressive for PNA, monitor clinically for any fevers and/ or sputum production - s/p IV lasix, Continue IV Lasix - EF of 40-45% from 2 yrs ago, will order echo today, may need to start DANNY-i - procalcitonin ordered, if elevated and PNA becomes clinically evident then consider continuation of abx = 05/05. Ejection fraction down to 30%. Could be stunning secondary tachycardia. We'll consult cardiology Leukocytosis Possibly stress induced from A. fib with RVR versus possible steroids (still pending verification from SNF) Repeat CBC in a.m. = 05/05. Leukocytosis has resolved. This was likely stress response. copd -Appears to be stable at this time, continue home albuterol -was not discharged on any prednisone from [facility] per nursing so we will hold off on steroids at this time. -on RA at this time -PFTs performed 2 years ago showed moderate obstructive airway disease but no post-bronchodilator study was done, start symbicort Hyperthyroidism Continue home methimazole = TSH within normal limits. CLL Stable platelets, follow-up with oncology as outpatient Lovenox Discharge Plannin/24. Have reservations about patient's ability to manage his own medications at home. Lives by himself. Would benefit likely from SNF/DETENTION PT consult pending.
[2018-05-05] MEDS: traZODone 100 MG Tablet PO SCH (23:02)
--- NOTE | 2018-05-06 01:19 | ECG ---
Date Performed: 05/04/2018 Time Performed: 07:22:21 PTAGE: 72 years EKG: ATRIAL FIBRILLATION WITH RAPID VENTRICULAR RESPONSE POSSIBLE RIGHT VENTRICULAR HYPERTROPHY SEPTAL MYOCARDIAL INFARCTION ABNORMAL ECG Since the PREVIOUS TRACING , no significant change noted DOCTOR: Marcus Dumas Interpretating Date/Time 05/06/2018 01:18:29
[2018-05-06] MEDS: Enoxaparin Inj 60 MG/0.6 ML Syringe SQ SCH ×2 (04:13→14:41)
--- NOTE | 2018-05-06 06:23 | MB ---
cc: Marcus Dumas DO DATE: 05/05/2018 REASON FOR CONSULTATION: Atrial fibrillation. HISTORY OF PRESENT ILLNESS: Fransico Ramos is a pleasant 72-year-old male who presented to [facility] due to shortness of breath for the past 3-4 days. He says that his shortness of breath has been progressing over time and any level of exertion would worsen it. He denies having any chest pain, nausea, or vomiting. He has had a cough with some productive sputum. He has been wearing oxygen as needed at home and has been increasing his use recently. Upon arrival, he was found to be in atrial fibrillation with rapid ventricular response and given Cardizem IV. He has since been started on Cardizem p.o. In seeing him, his heart rates are currently controlled and he feels much better. He was noted on CTA to possibly have pulmonary edema. He was previously seen by Dr. Shearer who suggested that he have an atrial fibrillation ablation, but he ultimately refused this and now sees Cardiology at the [facility]. PAST MEDICAL HISTORY: 1. Atrial fibrillation. 2. Chronic systolic congestive heart failure. 3. COPD. 4. CVA. 5. Hypertension. 6. Leukemia. PAST SURGICAL HISTORY: Cholecystectomy. ALLERGIES: NO KNOWN DRUG ALLERGIES. MEDICATIONS: 1. Aspirin 81 mg daily. 2. Eliquis 5 mg b.i.d. 3. Tapazole 5 mg daily. 4. Zocor 80 mg daily. 5. Cardizem-CD 180 mg daily. 6. Protonix 40 mg every night. 7. Midodrine 5 mg t.i.d. 8. Oxycodone 10 mg every 6 hours as needed. 9. Coreg 3.125 mg b.i.d. 10. Prednisone 20 mg daily. 11. Trazodone 100 mg daily. 12. Ibrutinib 420 mg daily. FAMILY HISTORY: Denies sudden cardiac or premature coronary artery disease within the family. SOCIAL HISTORY: He is a previous smoker. Denies alcohol or drug abuse. REVIEW OF SYSTEMS: Fourteen systems were reviewed including osteopathic. Pertinent positives and negatives above, otherwise negative. PHYSICAL EXAMINATION: VITAL SIGNS: Temperature 97.7, heart rate 77, blood pressure 110/78, respirations 16, pulse oximetry 98% on 2 liters. GENERAL: The patient appears well, in no acute distress. Alert, awake, and oriented x3. HEENT: Extraocular muscles intact. Mucous membranes moist. NECK: Supple. No JVD at 45 degrees. No carotid bruits heard bilaterally. Carotid upstroke is brisk in nature. HEART: Irregularly irregular. Positive 1st and 2nd heart sounds with a I/ crescendo decrescendo murmur to the right sternal border. LUNGS: Decreased breath sounds bilaterally with minimal rales. ABDOMEN: Soft, nontender, nondistended. No organomegaly noted. EXTREMITIES: Show no clubbing, cyanosis, or edema. Femoral and distal pulses intact bilaterally. NEUROLOGIC: No focal deficits. SKIN: Warm, dry, and intact. OSTEOPATHIC: No kyphoscoliosis, lordosis, or paraspinal tender points. DIAGNOSTIC DATA: Hemoglobin 9.8, hematocrit 29.8, platelets 172. Potassium 4.4, BUN 20, creatinine 1.15. Troponin 0.03. BNP 420. Electrocardiogram (05/04/2018 at 0722): Atrial fibrillation with rapid ventricular response, possible right ventricular hypertrophy, possible septal myocardial infarction. IMPRESSION: 1. Atrial fibrillation with rapid ventricular response. 2. Shortness of breath, most likely due to pulmonary edema. 3. Pulmonary edema, most likely due to atrial fibrillation with rapid ventricular response. 4. [id number]-[id number] systolic heart failure with a previous ejection fraction of 40%-45% and most recent ejection fraction of 30%. 5. Chronic obstructive pulmonary disease. RECOMMENDATIONS: 1. Mr. Ramos presented with atrial fibrillation with rapid ventricular response, which is most likely causing his pulmonary edema and shortness of breath. 2. He now has his atrial fibrillation controlled and he will be continued on Cardizem. 3. His Eliquis has been held. He has been placed on Lovenox. He will be transitioned back to Eliquis upon discharge. 4. I did speak to him about consideration once again about atrial fibrillation ablation, but he would not like to proceed with this. 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 5. He does have a mild drop in his ejection fraction. Ultimately, this is most likely due to atrial fibrillation with rapid ventricular response. We did discuss with him the consideration of undergoing a stress test to further evaluate for possible ischemia; but at this time, he would like to avoid that. He previously had [id number] mitral regurgitation, but on most recent echo has [id number] regurgitation. 6. We will attempt to diurese him as possible due to his pulmonary edema; and once his heart rate is controlled, from my standpoint, can be discharged home for followup with [facility]. Thank you for allowing me to see Fransico Ramos. If there are any questions, please do not hesitate to call. DO CIERRA Cai/rs , 11:49 PM , 12:01 AM
[2018-05-06 06:53] LABS: Albumin 2.3 g/dL (3.4-5.0); Calcium 7.6 mg/dL (8.5-10.1); Carbon Dioxide 24.3 meq/L (21.0-32.0); Magnesium 1.7 mg/dL (1.5-2.5); Phosphorus 4.7 mg/dL (2.5-4.9); Potassium 3.8 meq/L (3.5-5.1)
[2018-05-06] MEDS: Budesonide-Formoterol 80/4.5 MCG 6.9 GM Inhaler INH SCH ×2 (09:12→22:04)
[2018-05-06] MEDS: methIMAzole 5 MG Tablet PO SCH (09:13)
[2018-05-06] MEDS: dilTIAZem 60 MG Tablet PO SCH (09:14)
--- NOTE | 2018-05-06 12:42 | P.PN ---
Subjective Interval history: This is a pleasant 72 y/o Male, who came to ER with SOB and productive cough, is been at rehab after hospitalization due to lower extremity cellulitis, Was on Coreg now discontinued , was on 25 mg BID before last Rehabilitation, in ER her CXR demonstrated Pulmonary edema, CTA showed bilateral pleural effusions right greater than left, with very mild nonspecific infiltrates bilaterally in the lower julio, radiology read is negative for PE. 05/06: Seen in his bedroom, discussed with nurse Miss Spence and with seafood technology specialist Doctor Piter appreciated input and recommendations, will adjust his medicines and try to discharge in am tomorrow, no nausea, vomit or diarrhea. Physical Exam Vital signs: Vital Signs 05/05/18 13:00 05/05/18 14:00 05/05/18 15:00 Temperature Pulse Rate 72 68 53 L Respiratory Rate Blood Pressure Pulse Oximetry 05/05/18 16:00 05/05/18 17:00 05/05/18 18:00 Temperature 97.9 F Pulse Rate 64 54 L 62 Respiratory Rate 18 Blood Pressure 92/60 L Pulse Oximetry 98 05/05/18 19:00 05/05/18 20:00 05/05/18 21:00 Temperature 97.0 F L Pulse Rate 62 50 L 54 L Respiratory Rate 18 Blood Pressure 86/60 L Pulse Oximetry 94 L 05/05/18 22:00 05/05/18 23:00 05/06/18 00:00 Temperature Pulse Rate 52 L 52 L 38 L Respiratory Rate Blood Pressure 89/64 L Pulse Oximetry 05/06/18 00:59 05/06/18 01:00 05/06/18 02:00 Temperature Pulse Rate 46 L 50 L 48 L Respiratory Rate 17 Blood Pressure 93/45 L Pulse Oximetry 100 05/06/18 03:00 05/06/18 04:00 05/06/18 05:00 Temperature 97.8 F Pulse Rate 46 L 57 L 62 Respiratory Rate Blood Pressure 107/77 Pulse Oximetry 94 L 05/06/18 06:00 05/06/18 11:13 Temperature Pulse Rate 68 Respiratory Rate Blood Pressure Pulse Oximetry 97 Intake & Output 05/05/18 05/06/18 05/06/18 18:59 06:59 18:59 Intake Total 860 / 860 100 / 100 Output Total 1000 / 1000 200 / 200 Balance -140 / -140 -100 / -100 Weight 64 kg Intake: Oral 860 / 860 100 / 100 Output: Urine 1000 / 1000 200 / 200 Other: Date of Last Bowel Movement 05/05/18 Narrative: GENERAL: No acute distress. SKIN: Warm and dry. HEAD: Normocephalic. EYES: No scleral icterus. No injection or drainage. NECK: Supple, trachea midline. No JVD. CARDIOVASCULAR: Regular rate and rhythm without murmurs, gallops, or rubs. RESPIRATORY: Breath sounds equal bilaterally. No accessory muscle use. GASTROINTESTINAL: Abdomen soft, non-tender, nondistended. MUSCULOSKELETAL: No cyanosis, or edema. BACK: Nontender without obvious deformity. No CVA tenderness. Results - Labs CBC & Chem 7: 05/05/18 07:37 05/06/18 06:01 Laboratory Results - last 24 hr 05/05/18 05/06/18 15:17 06:01 Sodium 143 Potassium 3.8 Chloride 109 H Carbon Dioxide 24.3 Anion Gap 10 BUN 33 H Creatinine 1.44 H Estimated GFR 48 L Random Glucose 84 Calcium 7.6 L Phosphorus 4.7 Magnesium 1.7 Albumin 2.3 L TSH 3.350 - Imaging Chest X-Ray 05/04/18 07:20 CONCLUSION: Moderate mixed interstitial and alveolar process worse in the right lung not present previously may represent pulmonary edema, however the appearance is nonspecific and follow-up is suggested after appropriate clinical therapy. Chest CTA 05/04/18 08:16 CONCLUSION: 1. Slight decrease in size of bilateral pleural effusions and there are bibasilar parenchymal consolidations may represent pneumonia not present previously. Superimposed interstitial process may represent pulmonary edema. 2. There is no evidence of PE for technique. Assessment and Plan - Plan 72 y/o WM admitted for SOB. Clinically stable at the time of evaluation for admission. SOB -CTA neg for PE, -Multifactorial likely pulmonary edema and afib rvr, clinically not impressive for PNA - improved post Cardizem bolus and lasix afib w/ RVR - Improved status post IV Cardizem, will reduce the dose of Cardizem short acting to 30 mg QID until discontinued later today continue Home dose of Diltiazem ER 180 mg daily starting tomorrow, switch Coreg to Metoprolol due to Hypotension, continue Lovenox, transition to Apixaban on discharge. continue Midodrine. Systolic CHF exacerbation pulm edema effusions, possible infiltrates - Clinically is not impressive for PNA, monitor clinically for any fevers and/ or sputum production - switch to by mouth Lasix. - EF of 40-45% from 2 yrs ago, will order echo today, may need to start DANNY-i - procalcitonin ordered, if elevated and PNA becomes clinically evident then consider continuation of abx = 05/05. Ejection fraction down to 30%. Could be stunning secondary tachycardia. Cardiology following 05/06: Okay to discharge by Cardiology if stable in am tomorrow. Leukocytosis Possibly stress induced from A. fib with RVR versus possible steroids (still pending verification from [facility]) Repeat CBC in a.m. = 05/05. Leukocytosis has resolved. This was likely stress response. COPD -Appears to be stable at this time, continue home albuterol -[facility] so we will hold off on steroids at this time. -on RA at this time -PFTs performed 2 years ago showed moderate obstructive airway disease but no post-bronchodilator study was done, start Symbicort Hyperthyroidism Continue home methimazole = TSH within normal limits. CLL Stable platelets, follow-up with oncology as outpatient Lovenox Code Status: Full code. Discussed Condition With: Patient and Nurse Miss Spence I had the pleasure to talk about the case with seafood technology specialist Doctor Marcus Dumas input and recommendation highly appreciated. Discharge Planning: Expected in am tomorrow.
[2018-05-06] MEDS: dilTIAZem 30 MG Tablet PO SCH (14:45)
--- NOTE | 2018-05-06 17:16 | P.PNCA ---
Subjective Interval history: Feels alright, just tired SOB is better Heart rates into the 40s overnight Medications and Allergies Active Medications: Active Medications Albuterol (Duoneb Neb (Prn)) 1 ampul NEB Q15M PRN PRN Reason: SHORTNESS OF BREATH Last Admin: 05/04/18 08:27 Dose: 1 ampul Albuterol (Albuterol Neb (Prn)) 1.25 mg NEB Q2HR NEB PRN PRN Reason: WHEEZING Last Admin: 05/04/18 21:30 Dose: 1.25 mg Aspirin (Ecotrin) 81 mg PO DAILY [facility] Last Admin: 05/06/18 09:13 Dose: 81 mg Atorvastatin Calcium (Lipitor) 40 mg PO DAILY [facility] Last Admin: 05/06/18 09:43 Dose: Not Given Budesonide/Formoterol Fumarate (Symbicort 80/4.5 Mcg Inh) 1 puff INH BID [facility] Last Admin: 05/06/18 09:12 Dose: 1 puff Diltiazem HCl (Cardizem) 30 mg PO QID [facility] Stop: 05/06/18 18:01 Last Admin: 05/06/18 14:45 Dose: 30 mg Diltiazem HCl (Cardizem Cd 24hr) 180 mg PO DAILY [facility] Enoxaparin Sodium (Lovenox Inj) 60 mg SQ Q12H [facility] Last Admin: 05/06/18 14:41 Dose: 60 mg Furosemide (Lasix) 40 mg PO DAILY [facility] Methimazole (Tapazole) 5 mg PO DAILY [facility] Last Admin: 05/06/18 09:13 Dose: 5 mg Metoprolol Tartrate (Lopressor) 12.5 mg PO BID [facility] Midodrine (Proamatine) 5 mg PO TID [facility] Last Admin: 05/06/18 14:42 Dose: 5 mg Oxycodone HCl (Roxicodone) 10 mg PO Q6H PRN PRN Reason: Acute Pain 1-5 Pantoprazole Sodium (Protonix) 40 mg PO HS [facility] Last Admin: 05/05/18 21:35 Dose: 40 mg Sodium Chloride (Ns Flush) 2 ml IV.FLUSH BID [facility] Last Admin: 05/06/18 09:14 Dose: 2 ml Sodium Chloride (Ns Flush) 2 ml IV.FLUSH PRN PRN PRN Reason: FLUSH AFTER USING IV ACCESS Trazodone HCl (Desyrel) 100 mg PO HS [facility] Last Admin: 05/05/18 23:02 Dose: 100 mg Allergies Allergy/AdvReac Type Severity Reaction Status Date / Time No Known Allergies Allergy Verified 04/16/18 17:32 Home Medications Medication Instructions Recorded Confirmed Type simvastatin 80 mg PO DAILY 03/16/18 05/04/18 History ibrutinib 420 mg PO DAILY 05/04/18 05/04/18 History trazodone 100 mg PO DAILY 05/04/18 05/04/18 History Physical Exam Vital signs: Vital Signs 05/05/18 18:00 05/05/18 19:00 05/05/18 20:00 Temperature 97.0 F L Pulse Rate 62 62 50 L Respiratory Rate 18 Blood Pressure 86/60 L Pulse Oximetry 94 L 05/05/18 21:00 05/05/18 22:00 05/05/18 23:00 Temperature Pulse Rate 54 L 52 L 52 L Respiratory Rate Blood Pressure 89/64 L Pulse Oximetry 05/06/18 00:00 05/06/18 00:59 05/06/18 01:00 Temperature Pulse Rate 38 L 46 L 50 L Respiratory Rate 17 Blood Pressure 93/45 L Pulse Oximetry 100 05/06/18 02:00 05/06/18 03:00 05/06/18 04:00 Temperature 97.8 F Pulse Rate 48 L 46 L 57 L Respiratory Rate Blood Pressure 107/77 Pulse Oximetry 94 L 05/06/18 05:00 05/06/18 06:00 05/06/18 07:00 Temperature Pulse Rate 62 68 78 Respiratory Rate Blood Pressure Pulse Oximetry 05/06/18 08:00 05/06/18 09:00 05/06/18 10:00 Temperature Pulse Rate 101 H 82 74 Respiratory Rate 16 Blood Pressure 135/81 Pulse Oximetry 95 05/06/18 11:00 05/06/18 11:13 05/06/18 12:00 Temperature 96.0 F L Pulse Rate 80 74 Respiratory Rate 16 Blood Pressure 136/81 Pulse Oximetry 97 96 05/06/18 13:00 05/06/18 14:38 Temperature 97.4 F L Pulse Rate 74 61 Respiratory Rate 20 Blood Pressure 116/72 Pulse Oximetry 98 Intake & Output 05/05/18 05/06/18 05/06/18 18:59 06:59 18:59 Intake Total 860 / 860 100 / 100 Output Total 1000 / 1000 200 / 200 Balance -140 / -140 -100 / -100 Weight 64 kg Intake: Oral 860 / 860 100 / 100 Output: Urine 1000 / 1000 200 / 200 Other: Date of Last Bowel Movement 05/05/18 05/05/18 Narrative: GENERAL: No acute distress. SKIN: Warm and dry. HEAD: Normocephalic. EYES: No scleral icterus. No injection or drainage. NECK: Supple, trachea midline. No JVD. CARDIOVASCULAR: Irregularly irregular, no gallops, or rubs. RESPIRATORY: Breath sounds equal bilaterally. No accessory muscle use. GASTROINTESTINAL: Abdomen soft, non-tender, nondistended. MUSCULOSKELETAL: No cyanosis, or edema. BACK: Nontender without obvious deformity. No CVA tenderness. Results 05/05/18 07:37 05/06/18 06:01 CBC 05/05/18 Range/Units 07:37 WBC 10.4 (4.0-11.0) th/mm3 RBC 3.56 L (4.50-5.90) mil/mm3 Hgb 9.8 L (13.0-17.0) gm/dL Hct 29.8 L (39.0-51.0) % Plt Count 172 D (150-450) th/mm3 Neut # (Auto) 7.2 (1.8-7.7) th/mm3 Lymph # (Auto) 2.9 (1.0-4.8) th/mm3 Gila # (Auto) 0.3 (0.0-0.9) th/mm3 Eos # (Auto) 0.0 (0.0-0.4) th/mm3 Baso # (Auto) 0.1 (0.0-0.2) th/mm3 Comprehensive Metabolic Panel 05/06/18 Range/Units 06:01 Sodium 143 (136-145) meq/L Potassium 3.8 (3.5-5.1) meq/L Chloride 109 H (98-107) meq/L Carbon Dioxide 24.3 (21.0-32.0) meq/L BUN 33 H (7-18) mg/dL Creatinine 1.44 H (0.60-1.30) mg/dL Calcium 7.6 L (8.5-10.1) mg/dL Albumin 2.3 L (3.4-5.0) g/dL Intake and Output 05/06/18 05/06/18 05/06/18 06:59 14:59 22:59 Intake Total 100 / 100 Output Total 200 / 200 Balance -100 / -100 Intake: Oral 100 / 100 Output: Urine 200 / 200 Other: Date of Last Bowel Movement 05/05/18 05/05/18 Weight 64 kg Assessment and Plan - Assessment (1) Atrial fibrillation with RVR Code(s): I48.91 - Unspecified atrial fibrillation Status: Acute (2) CHF exacerbation Code(s): I50.9 - Heart failure, unspecified Status: Acute (3) COPD (chronic obstructive pulmonary disease) Code(s): J44.9 - Chronic obstructive pulmonary disease, unspecified Status: Acute (4) Hypertensive urgency Code(s): I16.0 - Hypertensive urgency Status: Acute (5) Hypoxia Code(s): R09.02 - Hypoxemia Status: Acute (6) CLL (chronic lymphocytic leukemia) Code(s): C91.90 - Lymphoid leukemia, unspecified not having achieved remission Status: Acute - Plan 1) Afib Previously RVR, now with SVR on Coreg/Cardizem Will attempt to change meds for better heart rate control 2) Can be started back on Eliquis on discharge 3) Discussed work up for cardiomyopathy, but he will take this up with [facility] 4) Discussed consideration of Afib ablation, but does not want 5) If stable tomorrow, can be discharged home for follow up with [facility] (2) CHF exacerbation Qualifiers: Heart failure type: unspecified Qualified Code(s): I50.9 - Heart failure, unspecified
[2018-05-06] MEDS: traZODone 100 MG Tablet PO SCH (22:01)
[2018-05-06] MEDS: Metoprolol Tartrate 25 MG Tablet PO SCH (22:01)
[2018-05-06] MEDS: Carvedilol 6.25 MG Tablet PO SCH (22:40)
[2018-05-07] MEDS: dilTIAZem 30 MG Tablet PO SCH (01:49)
[2018-05-07] MEDS: Enoxaparin Inj 60 MG/0.6 ML Syringe SQ SCH (05:09)
[2018-05-07 08:24] LABS: Calcium 7.6 mg/dL (8.5-10.1); Carbon Dioxide 27.2 meq/L (21.0-32.0); Potassium 3.8 meq/L (3.5-5.1)
[2018-05-07] MEDS ORDERED: Furosemide 40 MG Tablet PO SCH (09:00)
[2018-05-07] MEDS ORDERED: dilTIAZem CD 180 MG Capsule PO SCH (09:00)
[2018-05-07] MEDS: Metoprolol Tartrate 25 MG Tablet PO SCH (10:18)
[2018-05-07] MEDS: methIMAzole 5 MG Tablet PO SCH (10:22)
[2018-05-07] MEDS: Budesonide-Formoterol 80/4.5 MCG 6.9 GM Inhaler INH SCH (11:59)
[2018-05-07 12:27] VITALS: BP 135/93; RESP 12; TEMP 96.8; O2SAT 99
[2018-05-07 12:43] VITALS: PULSE 92
--- NOTE | 2018-05-07 12:45 | P.DS ---
Date of admission: 05/04/18 10:27 Primary care physician: [facility] Attending physician on discharge: Harrison Galo Anticipated date of discharge: 05/07/18 Brief History from admission: 72 y/o WM Being admitted for shortness of breath. Patient was in his usual state of health until about 3-4 days ago when he started feeling short of breath. Says that it progressed over time and any level of exertion would worsen it. Denies having any chest pain. Denies any nausea vomiting fevers or chills. Does report having a cough with a productive sputum. Prior to the onset of symptoms patient had recently arrived home from a rehab facility for reconditioning after a hospitalization he just had for cellulitis about 1 month ago. Denies any worsening acute lower extremity swelling. Patient says he was discontinued off of either carvedilol by some physician recently because it was possibly interfering with his blood pressure. RN verified his home dose of coreg prior to rehab was 25 mg bid, whereas discharge meds from rehab included coreg 6.25 mg bid. Pt says that he was told to wear oxygen "as needed" but did not require continuous active supplementation on discharge from [facility]. In the emergency department he was noted to be tachycardic to the 140s. Chest x -ray which I independently reviewed shows diffuse bilateral infiltrates suggestive of pulmonary edema. BNP in the 400s. CTA was performed which independently reviewed which showed bilateral pleural effusions, right greater than left, with very mild nonspecific infiltrates bilaterally in the lower julio, radiology read is negative for PE. ER physician told me lung julio demonstrated crackles and wheezing. Was given Cardizem twice with significant improvement in pulse down into the 80s. Patient says he feels "good now" after the medicines were infused and says he is no longer short of breath. DS: Diagnosis - Discharge Diagnosis (1) Atrial fibrillation with RVR Status: Acute (2) CHF exacerbation Status: Acute (3) Acute on chronic kidney failure Status: Acute (4) CLL (chronic lymphocytic leukemia) Status: Acute (5) COPD (chronic obstructive pulmonary disease) Status: Acute DS: Summary Hospital Course: This is a pleasant 72 y/o Male, who came to ER with SOB and productive cough, is been at rehab after hospitalization due to lower extremity cellulitis, Was on Coreg now discontinued , was on 25 mg BID before last Rehabilitation, in ER her CXR demonstrated Pulmonary edema, CTA showed bilateral pleural effusions right greater than left, with very mild nonspecific infiltrates bilaterally in the lower julio, radiology read is negative for PE. 05/06: Seen in his bedroom, discussed with nurse Miss Spence and with teacher selection specialist Doctor Piter appreciated input and recommendations, will adjust his medicines and try to discharge in am tomorrow, no 05/07: Stable in his bedroom, his heart rate is been below 100 during the day, mostly in 70s will continue present care and follow by PCP in three days. no nausea, vomit or diarrhea. Results - Labs CBC & Chem 7: 05/05/18 07:37 05/07/18 06:28 Laboratory Results - last 24 hr 05/07/18 06:28 Sodium 145 Potassium 3.8 Chloride 110 H Carbon Dioxide 27.2 Anion Gap 8 BUN 27 H Creatinine 1.10 Estimated GFR 66 L Random Glucose 64 L Calcium 7.6 L - Procedures none Assessment and Plan - Plan 72 y/o WM admitted for SOB. Clinically stable at the time of evaluation for admission. SOB -CTA neg for PE, -Multifactorial likely pulmonary edema and afib rvr, clinically not impressive for PNA - Improved after management now heart rate under control. afib w/ RVR - Improved status post IV Cardizem, will reduce the dose of Cardizem short acting to 30 mg QID until discontinued later today continue Home dose of Diltiazem ER 180 mg daily starting tomorrow, switch Coreg to Metoprolol due to Hypotension, continue Lovenox, transition to Apixaban on discharge. continue Midodrine. at this time stable will continue his Metoprolol on discharge 12.5 mg BID and continue Diltiazem 180 mg daily, follow with his PCP at [place] in three days. Systolic CHF exacerbation pulm edema effusions, possible infiltrates - Clinically is not impressive for PNA, monitor clinically for any fevers and/ or sputum production - switch to by mouth Lasix. - EF of 40-45% from 2 yrs ago, will order echo today, may need to start DANNY-i - procalcitonin ordered, if elevated and PNA becomes clinically evident then consider continuation of abx = 05/05. Ejection fraction down to 30%. Could be stunning secondary tachycardia. Cardiology following 05/06: Okay to discharge by Cardiology if stable in am tomorrow. Leukocytosis Possibly stress induced from A. fib with RVR versus possible steroids (still pending verification from SNF) Repeat CBC in a.m. = 05/05. Leukocytosis has resolved. This was likely stress response. COPD -Appears to be stable at this time, continue home albuterol -[facility] so we will hold off on steroids at this time. -on RA at this time -PFTs performed 2 years ago showed moderate obstructive airway disease but no post-bronchodilator study was done, start Symbicort Hyperthyroidism Continue home methimazole = TSH within normal limits. CLL Stable platelets, follow-up with oncology as outpatient Lovenox Code Status: Full code. Discussed Condition With: Patient and nurse Mr. Casanova and Miss Young. Discharge Planning: Discharge home now. - Time Spent with Patient Total time spent providing and/or coordinating discharge services: Less than 30 minutes - Quality: VTE Deep Vein Thrombosis/Pulmonary Embolism Present on Admission: No Exam Vital signs: Vital Signs 05/06/18 13:00 05/06/18 14:38 05/06/18 15:00 Temperature 97.4 F L Pulse Rate 74 61 58 L Respiratory Rate 20 Blood Pressure 116/72 Pulse Oximetry 98 05/06/18 16:00 05/06/18 17:00 05/06/18 18:00 Temperature 97.4 F L Pulse Rate 54 L 60 56 L Respiratory Rate 20 Blood Pressure 116/72 Pulse Oximetry 98 05/06/18 19:00 05/06/18 20:00 05/06/18 21:00 Temperature 97.3 F L Pulse Rate 62 58 L 52 L Respiratory Rate 20 Blood Pressure 138/71 Pulse Oximetry 98 05/06/18 22:00 05/06/18 23:00 05/07/18 00:00 Temperature Pulse Rate 58 L 50 L 26 L Respiratory Rate 16 Blood Pressure Pulse Oximetry 05/07/18 01:00 05/07/18 02:00 05/07/18 03:00 Temperature Pulse Rate 63 63 59 L Respiratory Rate Blood Pressure Pulse Oximetry 05/07/18 04:00 05/07/18 05:00 05/07/18 06:00 Temperature Pulse Rate 54 L 56 L 68 Respiratory Rate 16 Blood Pressure Pulse Oximetry 94 L 05/07/18 07:00 05/07/18 08:00 05/07/18 12:00 Temperature 97.4 F L 96.8 F L Pulse Rate 58 L 94 H 81 Respiratory Rate 16 12 Blood Pressure 159/86 H 135/93 H Pulse Oximetry 98 99 Intake & Output 05/06/18 05/07/18 05/07/18 18:59 06:59 18:59 Intake Total 480 / 480 240 / 240 Output Total 675 / 675 Balance -195 / -195 240 / 240 Weight 64.1 kg Intake: Oral 480 / 480 240 / 240 Output: Urine 675 / 675 Other: # Voids 1 Date of Last Bowel Movement 05/05/18 05/05/18 05/07/18 Narrative: GENERAL: No acute distress. SKIN: Warm and dry. HEAD: Normocephalic. EYES: No scleral icterus. No injection or drainage. NECK: Supple, trachea midline. No JVD. CARDIOVASCULAR: Irregular rate and rhythm. no murmurs. RESPIRATORY: Breath sounds equal bilaterally. No accessory muscle use. GASTROINTESTINAL: Abdomen soft, non-tender, nondistended. MUSCULOSKELETAL: No cyanosis, or edema. BACK: Nontender without obvious deformity. No CVA tenderness. Results Procedures completed during hospitalization: none Labs on day of discharge: Labs from last 24 hours 05/07/18 06:28 Sodium 145 Potassium 3.8 Chloride 110 H Carbon Dioxide 27.2 Anion Gap 8 BUN 27 H Creatinine 1.10 Estimated GFR 66 L Random Glucose 64 L Calcium 7.6 L - Impressions Chest X-Ray 05/04/18 07:20 CONCLUSION: Moderate mixed interstitial and alveolar process worse in the right lung not present previously may represent pulmonary edema, however the appearance is nonspecific and follow-up is suggested after appropriate clinical therapy. Chest CTA 05/04/18 08:16 CONCLUSION: 1. Slight decrease in size of bilateral pleural effusions and there are bibasilar parenchymal consolidations may represent pneumonia not present previously. Superimposed interstitial process may represent pulmonary edema. 2. There is no evidence of PE for technique. Discharge Plan - Discharge Disposition Patient Disposition: 01 Discharge Home - Discharge Condition Condition: Stable - Discharge Order Discharge Orders: Discharge Order (Routine); Ordered 05/07/18 Ordered By: Harrison Galo - Discharge Details Anticipated Discharge Date: 05/07/18 Discharge Comment: [facility] - Physicians Team Attending Provider: Harrison Galo Other Providers: Marcus Dumas, DO
--- NOTE | 2018-05-07 15:00 | P.DCO ---
- Diagnosis (1) Atrial fibrillation with RVR Status: Acute (2) CHF exacerbation Status: Acute (3) COPD (chronic obstructive pulmonary disease) Status: Acute (4) Hypertensive urgency Status: Acute - Home Health Nursing Order: Medical education, Signs/symptoms of disease process, Medication education-adverse effect, Nursing assessment with vital signs - Case Management Consult No - Certification I have seen patient Fransico Batista on 05/07/18. My clinical findings support the need for the requested home health care services because: Deconditioned with increased weakness I certify that my clinical findings support that this patient is homebound because: Unsafe to leave home unassisted (2) CHF exacerbation Qualifiers: Heart failure type: unspecified Qualified Code(s): I50.9 - Heart failure, unspecified
--- NOTE | 2018-05-07 18:53 | P.PNCA ---
Subjective Interval history: Heart rates better controlled Up and ambulating without problems Medications and Allergies Allergies Allergy/AdvReac Type Severity Reaction Status Date / Time No Known Allergies Allergy Verified 04/16/18 17:32 Home Medications Medication Instructions Recorded Confirmed Type simvastatin 80 mg PO DAILY 03/16/18 05/04/18 History ibrutinib 420 mg PO DAILY 05/04/18 05/04/18 History trazodone 100 mg PO DAILY 05/04/18 05/04/18 History Physical Exam Vital signs: Vital Signs 05/06/18 19:00 05/06/18 20:00 05/06/18 21:00 Temperature 97.3 F L Pulse Rate 62 58 L 52 L Respiratory Rate 20 Blood Pressure 138/71 Pulse Oximetry 98 05/06/18 22:00 05/06/18 23:00 05/07/18 00:00 Temperature Pulse Rate 58 L 50 L 26 L Respiratory Rate 16 Blood Pressure Pulse Oximetry 05/07/18 01:00 05/07/18 02:00 05/07/18 03:00 Temperature Pulse Rate 63 63 59 L Respiratory Rate Blood Pressure Pulse Oximetry 05/07/18 04:00 05/07/18 05:00 05/07/18 06:00 Temperature Pulse Rate 54 L 56 L 68 Respiratory Rate 16 Blood Pressure Pulse Oximetry 94 L 05/07/18 07:00 05/07/18 08:00 05/07/18 12:00 Temperature 97.4 F L 96.8 F L Pulse Rate 58 L 94 H 92 H Respiratory Rate 16 12 Blood Pressure 159/86 H 135/93 H Pulse Oximetry 98 99 Intake & Output 05/06/18 05/07/18 05/07/18 18:59 06:59 18:59 Intake Total 480 / 480 240 / 240 Output Total 675 / 675 Balance -195 / -195 240 / 240 Weight 64.1 kg Intake: Oral 480 / 480 240 / 240 Output: Urine 675 / 675 Other: # Voids 1 Date of Last Bowel Movement 05/05/18 05/05/18 05/07/18 Narrative: GENERAL: No acute distress. SKIN: Warm and dry. HEAD: Normocephalic. EYES: No scleral icterus. No injection or drainage. NECK: Supple, trachea midline. No JVD. CARDIOVASCULAR: Irregular rate and rhythm. no murmurs. RESPIRATORY: Breath sounds equal bilaterally. No accessory muscle use. GASTROINTESTINAL: Abdomen soft, non-tender, nondistended. MUSCULOSKELETAL: No cyanosis, or edema. BACK: Nontender without obvious deformity. No CVA tenderness. Results 05/05/18 07:37 05/07/18 06:28 Comprehensive Metabolic Panel 05/06/18 05/07/18 Range/Units 06:01 06:28 Sodium 143 145 (136-145) meq/L Potassium 3.8 3.8 (3.5-5.1) meq/L Chloride 109 H 110 H (98-107) meq/L Carbon Dioxide 24.3 27.2 (21.0-32.0) meq/L BUN 33 H 27 H (7-18) mg/dL Creatinine 1.44 H 1.10 (0.60-1.30) mg/dL Calcium 7.6 L 7.6 L (8.5-10.1) mg/dL Albumin 2.3 L (3.4-5.0) g/dL Intake and Output 05/07/18 05/07/18 05/07/18 06:59 14:59 22:59 Intake Total 240 / 240 Balance 240 / 240 Intake: Oral 240 / 240 Other: # Voids 1 Date of Last Bowel Movement 05/05/18 05/07/18 Weight 64.1 kg Assessment and Plan - Assessment (1) Atrial fibrillation with RVR Code(s): I48.91 - Unspecified atrial fibrillation Status: Acute (2) CHF exacerbation Code(s): I50.9 - Heart failure, unspecified Status: Acute (3) COPD (chronic obstructive pulmonary disease) Code(s): J44.9 - Chronic obstructive pulmonary disease, unspecified Status: Acute (4) Hypertensive urgency Code(s): I16.0 - Hypertensive urgency Status: Acute (5) Hypoxia Code(s): R09.02 - Hypoxemia Status: Acute (6) CLL (chronic lymphocytic leukemia) Code(s): C91.90 - Lymphoid leukemia, unspecified not having achieved remission Status: Acute - Plan 1) Afib Previously RVR, now with CVR 2) Can be started back on Eliquis on discharge 3) Discussed work up for cardiomyopathy, but he will take this up with [facility] 4) Discussed consideration of Afib ablation, but does not want 5) Cardiovascularly stable for discharge Follow up with [facility] (2) CHF exacerbation Qualifiers: Heart failure type: unspecified Qualified Code(s): I50.9 - Heart failure, unspecified
== END 2018-05-07 16:25 | disposition home health service (06) ==
LOC: NEPE 07:12 → INTOOBSV 10:27 → NEDA 10:27 → HCIN 13:02
PROVIDERS: ADMIT Internal Medicine; ATTEND Internal Medicine

== ENCOUNTER 2018-07-05 10:25 | Inpatient (IN) ==
--- NOTE | 2018-07-05 10:55 | ED ---
HPI General Chief Complaint: Shortness of Breath/Dyspnea Stated Complaint: SOB Time Seen by Provider: 07/05/18 10:39 Source: patient Mode of arrival: EMS Limitations: no limitations History of Present Illness The patient is a 73-year-old male who presents to the emergency department via EMS for shortness of breath. The patient developed shortness of breath 4 days ago which has been progressive, worse with lying supine and with exertion. The patient does have a history of COPD and uses oxygen at home as needed, 2 L via nasal cannula. The patient also notes a dry mostly nonproductive cough which is chronic, denies any acute change in his cough characteristics. According to EMS the patient was in atrial fibrillation with RVR when they arrived, heart rate in the 180s, the patient was administered Cardizem 20 mg intravenously prior to arrival. 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 The patient also notes a history of a "leaky valve "but has had no intervention for the valvular disorder. The patient states the chest pain, described as tightness, is currently resolved. The patient states that shortness of breath is also improved. He denies any current nausea, vomiting, or diaphoresis. The patient denies any history of pulmonary embolism, DVT, or congestive heart failure. The patient is currently anticoagulated with Eliquis for his atrial fibrillation. The patient's primary physician is at the [place] [facility], Dr. Yousif. Complaint: Reports shortness of breath Onset (ago): day(s) Context: Reports occurred during exertion Severity: moderate Consistency/Duration: intermittent Relieving factors: oxygen and rest Exacerbating factors: lying flat and exertion Known history of: Reports COPD and other Associated symptoms: Reports chest pain, cough and orthopnea Treatment prior to arrival: Reports oxygen and other Related Data Home oxygen amount: 2 liters Home Medications Medication Instructions Recorded Confirmed simvastatin 80 mg PO DAILY 03/16/18 07/05/18 ibrutinib 420 mg PO DAILY 05/04/18 07/05/18 trazodone 100 mg PO DAILY 05/04/18 07/05/18 Previous Rx's Medication Instructions Recorded apixaban [Eliquis] 5 mg PO BID tab 01/10/18 aspirin 81 mg PO DAILY tab 01/10/18 methimazole [Tapazole] 5 mg PO DAILY tab 01/10/18 diltiazem HCl [Cardizem CD] 180 mg PO DAILY #30 cap 03/21/18 midodrine 5 mg PO TID #90 tab 03/21/18 pantoprazole 40 mg PO HS #30 tab 03/21/18 furosemide 40 mg PO DAILY #30 tab 05/07/18 metoprolol tartrate 12.5 mg PO BID #30 tab 05/07/18 Allergies Allergy/AdvReac Type Severity Reaction Status Date / Time No Known Allergies Allergy Verified 07/05/18 10:29 Review of Systems ROS: all other systems reviewed are negative [facility] Family History Family History Other Heart disease Social History Social History Substance History: No History of Abuse Second Hand Smoke Exposure: Yes Smoking Status: Former smoker Tobacco Type: Cigarettes How Often Do You Have a Drink Containing Alcohol: Never Recent Travel in [facility] within the Last 8 Weeks: No Recent Out of Country Travel within the Last 8 Weeks: No Immunization History Tetanus Immunization: <5 Years Exam Narrative Exam Narrative: GENERAL: Awake, alert, pleasant 73-year-old male who appears his stated age and is in no acute respiratory distress. SKIN: Focused skin assessment warm/dry. HEAD: Atraumatic. Normocephalic. EYES: No injection or drainage. ENT: No nasal bleeding or discharge. Mucous membranes pink and moist. NECK: Trachea midline. No JVD. CARDIOVASCULAR: Irregularly irregular, tachycardic with a heart rate of 100. RESPIRATORY: No accessory muscle use. Prolonged expiratory phase with a few scant wheezes. GASTROINTESTINAL: Abdomen soft, non-tender, nondistended. No guarding or rigidity. MUSCULOSKELETAL: No obvious deformities. No clubbing. No cyanosis. No edema. Calves are soft bilaterally. NEUROLOGICAL: Awake and alert. No obvious cranial nerve deficits. Motor grossly within normal limits. Normal speech. Nonfocal. PSYCHIATRIC: Appropriate mood and affect; insight and judgment normal. Course Initial Documented Vital Signs Temperature 97.2 F L 07/05/18 10:30 Pulse Rate 100 H 07/05/18 10:30 Respiratory Rate 20 07/05/18 10:30 Blood Pressure 128/81 07/05/18 10:30 Pulse Oximetry 95 07/05/18 10:30 Last Documented Vital Signs Temperature 97.2 F L 07/05/18 10:30 Pulse Rate 104 H 07/05/18 10:38 Respiratory Rate 22 07/05/18 10:38 Blood Pressure 128/81 07/05/18 10:38 Pulse Oximetry 94 L 07/05/18 10:38 Medical Decision Making MDM Narrative Medical decision making narrative: IV was established, labs are drawn and sent, and the patient was placed on cardiac telemetry monitoring and continuous pulse oximetry monitoring. EKG was ordered and interpreted. Chest x-ray was obtained. BNP and troponin were sent to lab. Chest x-ray reveals pulmonary edema, BNP is mildly elevated, troponin is slightly elevated. Patient was administered Lasix intravenously. Patient has orthopnea and exertional dyspnea , most likely pulmonary edema. I did review the EMR, last echocardiogram revealed global hypokinesis with EF of 30% and mitral regurgitation. The patient will be a 23-hour observation for diuresis and to evaluate clinical improvement. I discussed the patient with the on-call medical service, Dr. Phillips, who agrees with admission. Medical Screen Exam Complete: Yes Emergency Medical Condition: Yes Lab Data Result diagrams: 07/05/18 11:00 07/05/18 11:00 Lab Results 07/05/18 07/05/18 07/05/18 Range/Units 11:00 11:00 11:00 WBC 4.5 (4.0-11.0) th/mm3 RBC 3.97 L (4.50-5.90) mil/mm3 Hgb 9.8 L (13.0-17.0) gm/dL Hct 30.8 L (39.0-51.0) % MCV 77.6 L (80.0-100.0) fL MCH 24.6 L (27.0-34.0) pg MCHC 31.7 L (32.0-36.0) % RDW 16.2 (11.6-17.2) % Plt Count 91 L (150-450) th/mm3 MPV 12.4 H (7.0-11.0) fL Prelim Diff (Auto) Slide review pending Neut % (Auto) 75.4 H (16.0-70.0) % Lymph % (Auto) 18.0 (9.0-44.0) % [place] % (Auto) 6.0 (0.0-8.0) % Eos % (Auto) 0.1 (0.0-4.0) % Baso % (Auto) 0.5 (0.0-2.0) % Neut # (Auto) 3.4 (1.8-7.7) th/mm3 Lymph # (Auto) 0.8 L (1.0-4.8) th/mm3 [place] # (Auto) 0.3 (0.0-0.9) th/mm3 Eos # (Auto) 0.0 (0.0-0.4) th/mm3 Baso # (Auto) 0.0 (0.0-0.2) th/mm3 WBC Differential . Diff Scan Auto diff confirmed Differential Comment . Platelet Estimate Low L (Normal) Platelet Morphology Enlarged H (Normal) Sodium 144 (136-145) meq/L Potassium 3.9 (3.5-5.1) meq/L Chloride 110 H (98-107) meq/L Carbon Dioxide 24.9 (21.0-32.0) meq/L Anion Gap 9 (5-15) meq/L BUN 19 H (7-18) mg/dL Creatinine 1.10 (0.60-1.30) mg/dL Estimated GFR 66 L (>89) mL/min Random Glucose 107 H (74-106) mg/dL Calcium 8.6 (8.5-10.1) mg/dL Magnesium 1.5 (1.5-2.5) mg/dL Total Bilirubin 0.6 (0.2-1.0) mg/dL AST 13 L (15-37) U/L ALT 14 (12-78) U/L Alkaline Phosphatase 85 (45-117) U/L Total Creatine Kinase 32 L (39-308) U/L Troponin I 0.07 H (0.02-0.05) ng/mL B-Natriuretic Peptide (0-100) pg/mL Total Protein 6.4 (6.4-8.2) g/dL Albumin 3.2 L (3.4-5.0) g/dL 07/05/18 Range/Units 11:00 WBC (4.0-11.0) th/mm3 RBC (4.50-5.90) mil/mm3 Hgb (13.0-17.0) gm/dL Hct (39.0-51.0) % MCV (80.0-100.0) fL MCH (27.0-34.0) pg MCHC (32.0-36.0) % RDW (11.6-17.2) % Plt Count (150-450) th/mm3 MPV (7.0-11.0) fL Prelim Diff (Auto) Neut % (Auto) (16.0-70.0) % Lymph % (Auto) (9.0-44.0) % [place] % (Auto) (0.0-8.0) % Eos % (Auto) (0.0-4.0) % Baso % (Auto) (0.0-2.0) % Neut # (Auto) (1.8-7.7) th/mm3 Lymph # (Auto) (1.0-4.8) th/mm3 [facility] # (Auto) (0.0-0.9) th/mm3 Eos # (Auto) (0.0-0.4) th/mm3 Baso # (Auto) (0.0-0.2) th/mm3 WBC Differential Diff Scan Differential Comment Platelet Estimate (Normal) Platelet Morphology (Normal) Sodium (136-145) meq/L Potassium (3.5-5.1) meq/L Chloride (98-107) meq/L Carbon Dioxide (21.0-32.0) meq/L Anion Gap (5-15) meq/L BUN (7-18) mg/dL Creatinine (0.60-1.30) mg/dL Estimated GFR (>89) mL/min Random Glucose (74-106) mg/dL Calcium (8.5-10.1) mg/dL Magnesium (1.5-2.5) mg/dL Total Bilirubin (0.2-1.0) mg/dL AST (15-37) U/L ALT (12-78) U/L Alkaline Phosphatase (45-117) U/L Total Creatine Kinase (39-308) U/L Troponin I (0.02-0.05) ng/mL B-Natriuretic Peptide 195 H (0-100) pg/mL Total Protein (6.4-8.2) g/dL Albumin (3.4-5.0) g/dL Imaging Data Radiologist's impression: Chest X-Ray 07/05/18 10:48 CONCLUSION: No significant interval change with the bilateral pulmonary infiltrates in both lower lungs. ECG Data EKG Prior to Arrival: No Attestation: I personally reviewed and interpreted this ECG as follows: Interpretation: EKG reveals atrial fibrillation with RVR, rate 105. Q waves noted in lead V1 and V2. Discharge Plan Discharge Order Discharge Orders: ED Use Only Admit Order (Routine); Ordered 07/05/18 Ordered By: Higinio Nielson Physicians Team ED Provider: Higinio Nielson Attending Provider: Justin Phillips Rxs /Orders / Referrals /Forms Prescriptions: No Action aspirin 81 mg Tablet,Delayed Release (Dr/Ec) 81 mg PO DAILY RF: 0 methimazole [Tapazole] 5 mg Tablet 5 mg PO DAILY RF: 0 apixaban [Eliquis] 5 mg Tablet 5 mg PO BID RF: 0 simvastatin 80 mg Tablet 80 mg PO DAILY RF: 0 diltiazem HCl [Cardizem CD] 180 mg Capsule,Extended Release 24hr 180 mg PO DAILY Qty: 30 RF: 0 midodrine 5 mg Tablet 5 mg PO TID Qty: 90 RF: 0 pantoprazole 40 mg Tablet,Delayed Release (Dr/Ec) 40 mg PO HS Qty: 30 RF: 0 ibrutinib 140 mg Capsule 420 mg PO DAILY RF: 0 trazodone 100 mg Tablet 100 mg PO DAILY RF: 0 furosemide 40 mg Tablet 40 mg PO DAILY Qty: 30 RF: 0 metoprolol tartrate 25 mg Tablet 12.5 mg PO BID Qty: 30 RF: 0 Discharge Interventions Interventions: Vital Signs Last Done: 07/05/18 10:38 Status ED Status: Admitted Patient
--- NOTE | 2018-07-05 11:16 | XR ---
EXAM DATE: 07/05/2018 11:09 AM EST AGE/SEX: 73 years / Male INDICATIONS: Short of breath CLINICAL DATA: This is the patient's initial encounter. Patient reports that signs and symptoms have been present for > 1 year and indicates a pain score of 0/10. MEDICAL/SURGICAL HISTORY: Chronic obstructive pulmonary disease. Congestive heart failure. Le ukemia. A-fib, CVA Cholecystectomy. COMPARISON: [facility], CHEST 1V SINGLE AP, 05/04/2018. . FINDINGS: Today's exam is compared to the prior study. There continues to be interstitial and pulmonary infiltr ates probably in both lower lungs. The pattern and distribution is stable compared to the prior exami nation. The heart size is within normal limits and stable. There is blunting of both costophrenic ang les suggestive of small effusions. The bony structures are stable. There is no pneumothorax. Compared to the prior exam no significant changes. CONCLUSION: No significant interval change with the bilateral pulmonary infiltrates in both lower lungs. Electronically signed by: Milton Porras MD Board Certified Radiologist 07/05/2018 11:14 AM EST
[2018-07-05 11:32] LABS: Albumin 3.2 g/dL (3.4-5.0); Anion Gap 9 meq/L (5-15); Aspartate Aminotransferase 13 U/L (15-37); Baso % (Auto) 0.5 % (0.0-2.0); Blood Urea Nitrogen 19 mg/dL (7-18); Calcium 8.6 mg/dL (8.5-10.1); Carbon Dioxide 24.9 meq/L (21.0-32.0); Chloride 110 meq/L (98-107); Eos % (Auto) 0.1 % (0.0-4.0); Glomerular Filtration Rate 66 mL/min (>89); Glucose,Random 107 mg/dL (74-106); Hematocrit 30.8 % (39.0-51.0); Hemoglobin 9.8 gm/dL (13.0-17.0); Lymph # (Auto) 0.8 th/mm3 (1.0-4.8); Mean Corpuscular HGB Conc 31.7 % (32.0-36.0); Mean Corpuscular Hemoglobin 24.6 pg (27.0-34.0); Mean Corpuscular Volume 77.6 fL (80.0-100.0); Mean Platelet Volume 12.4 fL (7.0-11.0); Mono # (Auto) 0.3 th/mm3 (0.0-0.9); Neut # (Auto) 3.4 th/mm3 (1.8-7.7); Neut % (Auto) 75.4 % (16.0-70.0); Platelet Count 91 th/mm3 (150-450); Potassium 3.9 meq/L (3.5-5.1); Red Blood Count 3.97 mil/mm3 (4.50-5.90); Red Cell Distribution Width 16.2 % (11.6-17.2); Sodium 144 meq/L (136-145); White Blood Count 4.5 th/mm3 (4.0-11.0)
[2018-07-05 11:33] LABS: Alanine Aminotransferase 14 U/L (12-78); Magnesium 1.5 mg/dL (1.5-2.5)
[2018-07-05 11:36] LABS: Alkaline Phosphatase 85 U/L (45-117); Total Protein 6.4 g/dL (6.4-8.2); Troponin I 0.07 ng/mL (0.02-0.05)
[2018-07-05] MEDS ORDERED: Acetaminophen 325 MG Tablet PO PRN (12:42)
--- NOTE | 2018-07-05 15:20 | P.HP ---
History of Present Illness Primary Care Physician: [facility] Chief Complaint: Shortness of breath History of Present Illness: 73-year-old man with a past medical history of systolic CHF, CAD, leukemia, COPD , prior CVA presented to the ED for evaluation of worsening symptoms of shortness of breath, orthopnea times 3 days duration, associated with nonproductive cough without any associated chest pain. Patient states, last night he became significant shortness of breath despite oxygen which is on for 2 hours times twice a day and treatment with bronchodilator. His symptoms were worse with supine position. Again this a.m. when he woke from bed shortness did not improve despite oxygen therapy and patient decided to go to the [place]. Currently denies any GI bleed. Inpatient Certification: I certify that the inpatient services were ordered in accordance with Medicare regulations governing the order. This includes certification that hospital inpatient services are reasonable and necessary and in the case of services not specified as inpatient-only under 42 CFR 419.22(n), that they are appropriately provided as inpatient services in accordance to with the 2-midnight benchmark under 43 CFR 412.3(e) Estimated Total Length of Stay (Days): 2 Plans for Post Hospital Care: Not yet determined Review of Systems All other systems reviewed negative except as stated in HPI PMFSH - History History Provided By: Patient - Medical History Medical History: Medical History (Last Reviewed 07/05/18 @ 12:53 by Jarocho Su) Afib CHF (congestive heart failure) COPD (chronic obstructive pulmonary disease) CVA (cerebral vascular accident) History of stroke Hx of cardiac murmur Hypertension Leukemia - Surgical History Surgical History: Surgical History (Last Reviewed 07/05/18 @ 12:53 by Jarocho Su) Hx of cholecystectomy - Family History Family History: Family History (Last Updated 05/04/18 @ 10:57 by Jeffery Torres MD) Other Heart disease - Tobacco History Second Hand Smoke Exposure: Yes Smoking Status: Former smoker Tobacco Type: Cigarettes - Alcohol History How Often Do You Have a Drink Containing Alcohol: Never - Substance Use History Substance History: No History of Abuse - Travel History Recent Travel in the [place] Within the Last 8 Weeks: No Recent Travel Out of the Country Within the Last 8 Weeks: No - Immunization History Tetanus Immunization: <5 Years Medications and Allergies Active Medications: Active Medications Acetaminophen (Tylenol) 650 mg PO Q4H PRN PRN Reason: Temp > 100.4 Al Hydroxide/Mg Hydroxide (Milk Of Capo Liq) 30 ml PO Q12H PRN PRN Reason: Mild Constipation Albuterol (Duoneb Neb (Prn)) 1 ampul NEB Q2HR NEB PRN PRN Reason: SHORTNESS OF BREATH Apixaban (Eliquis) 5 mg PO BID FREDRICK Aspirin (Ecotrin) 81 mg PO DAILY FREDRICK Atorvastatin Calcium (Lipitor) 40 mg PO DAILY FREDRICK Diltiazem HCl (Cardizem Cd 24hr) 180 mg PO DAILY FREDRICK Furosemide (Lasix Inj) 40 mg IV.PUSH BID@0900,1800 FREDRICK Methimazole (Tapazole) 5 mg PO DAILY FREDRICK Metoprolol Tartrate (Lopressor) 12.5 mg PO BID FREDRICK Ondansetron HCl (Zofran Inj) 4 mg IV.PUSH Q6H PRN PRN Reason: NAUSEA OR VOMITING Pantoprazole Sodium (Protonix) 40 mg PO HS FREDRICK Patient Own Medication: Ibrutinib 420 Mg 0 each PO DAILY FREDRICK Sodium Chloride (Ns Flush) 2 ml IV.FLUSH BID [facility] Sodium Chloride (Ns Flush) 2 ml IV.FLUSH PRN PRN PRN Reason: FLUSH AFTER USING IV ACCESS Trazodone HCl (Desyrel) 100 mg PO DAILY FREDRICK Allergies Allergy/AdvReac Type Severity Reaction Status Date / Time No Known Allergies Allergy Verified 07/05/18 10:29 Home Medications Medication Instructions Recorded Confirmed Type simvastatin 80 mg PO DAILY 03/16/18 07/05/18 History ibrutinib 420 mg PO DAILY 05/04/18 07/05/18 History trazodone 100 mg PO DAILY 05/04/18 07/05/18 History Exam Vital signs: Vital Signs 07/05/18 10:30 07/05/18 10:38 07/05/18 10:48 Temperature 97.2 F L Pulse Rate 100 H 104 H 100 H Respiratory Rate 20 22 Blood Pressure 128/81 128/81 Pulse Oximetry 95 94 L 96 07/05/18 13:06 07/05/18 13:57 Temperature Pulse Rate 87 Respiratory Rate 22 Blood Pressure 137/106 H Pulse Oximetry 98 97 Intake & Output 07/04/18 07/05/18 07/05/18 18:59 06:59 18:59 Weight 67.585 kg Narrative: GENERAL: NAD SKIN: Warm and dry. HEAD: Atraumatic. Normocephalic. EYES: Pupils equal and round. No scleral icterus. No injection or drainage. ENT: No nasal bleeding or discharge. Mucous membranes pink and moist. NECK: Trachea midline. No JVD. CARDIOVASCULAR: Regular rate and rhythm. RESPIRATORY: No accessory muscle use. Clear to auscultation. Breath sounds equal bilaterally. GASTROINTESTINAL: Abdomen soft, non-tender, nondistended. Hepatic and splenic margins not palpable. MUSCULOSKELETAL: Extremities without clubbing, cyanosis, or edema. No obvious deformities. NEUROLOGICAL: Awake and alert. No obvious cranial nerve deficits. Motor grossly within normal limits. Five out of 5 muscle strength in the arms and legs. Normal speech. PSYCHIATRIC: Appropriate mood and affect; insight and judgment normal. Results - Labs CBC & Chem 7: 07/05/18 11:00 07/05/18 11:00 Labs: Laboratory Results - last 24 hr 07/05/18 07/05/18 07/05/18 11:00 11:00 11:00 WBC 4.5 RBC 3.97 L Hgb 9.8 L Hct 30.8 L MCV 77.6 L MCH 24.6 L MCHC 31.7 L RDW 16.2 Plt Count 91 L MPV 12.4 H Prelim Diff (Auto) Slide review pending Neut % (Auto) 75.4 H Lymph % (Auto) 18.0 [place] % (Auto) 6.0 Eos % (Auto) 0.1 Baso % (Auto) 0.5 Neut # (Auto) 3.4 Lymph # (Auto) 0.8 L [place] # (Auto) 0.3 Eos # (Auto) 0.0 Baso # (Auto) 0.0 WBC Differential . Diff Scan Auto diff confirmed Differential Comment . Platelet Estimate Low L Platelet Morphology Enlarged H Sodium 144 Potassium 3.9 Chloride 110 H Carbon Dioxide 24.9 Anion Gap 9 BUN 19 H Creatinine 1.10 Estimated GFR 66 L Random Glucose 107 H Calcium 8.6 Magnesium 1.5 Total Bilirubin 0.6 AST 13 L ALT 14 Alkaline Phosphatase 85 Total Creatine Kinase 32 L Troponin I 0.07 H B-Natriuretic Peptide Total Protein 6.4 Albumin 3.2 L 07/05/18 11:00 WBC RBC Hgb Hct MCV MCH MCHC RDW Plt Count MPV Prelim Diff (Auto) Neut % (Auto) Lymph % (Auto) [place] % (Auto) Eos % (Auto) Baso % (Auto) Neut # (Auto) Lymph # (Auto) [place] # (Auto) Eos # (Auto) Baso # (Auto) WBC Differential Diff Scan Differential Comment Platelet Estimate Platelet Morphology Sodium Potassium Chloride Carbon Dioxide Anion Gap BUN Creatinine Estimated GFR Random Glucose Calcium Magnesium Total Bilirubin AST ALT Alkaline Phosphatase Total Creatine Kinase Troponin I B-Natriuretic Peptide 195 H Total Protein Albumin - Imaging Impressions Chest X-Ray 07/05/18 10:48 CONCLUSION: No significant interval change with the bilateral pulmonary infiltrates in both lower lungs. Caprini VTE Risk Assessment Caprini VTE Risk Assessment: Moderate/High Risk (score >= 2) Caprini Risk Assessment Model: Point Value = 1 Point Value = 2 Point Value = 3 Point Value = 5 Age 41-60 Minor surgery BMI > 25 kg/m2 Swollen legs Varicose veins or History of unexplained or recurrent spontaneous Oral contraceptives or hormone replacement Sepsis (< 1 month) Serious lung disease, including pneumonia (< 1 month) Abnormal pulmonary function Acute myocardial infarction Congestive heart failure (< 1 month) History of inflammatory bowel disease Medical patient at bed rest Age 61-74 Arthroscopic surgery Major open surgery (> 45 min) Laparoscopic surgery (> 45 min) Malignancy Confined to bed (> 72 hours) Immobilizing plaster cast Central venous access Age >= 75 History of VTE Family history of VTE Factor V Leiden Prothrombin 19305H Lupus anticoagulant Anticardiolipin antibodies Elevated serum homocysteine Heparin-induced thrombocytopenia Other congenital or acquired thrombophilia Stroke (< 1 month) Elective arthroplasty Hip, pelvis, or leg fracture Acute spinal cord injury (< 1 month) Prophylaxis Regimen: Total Risk Factor Score Risk Level Prophylaxis Regimen 0-1 Low Early ambulation 2 Moderate Order ONE of the following: *Sequential Compression Device (SCD) *Heparin 5000 units SQ BID 3-4 Higher Order ONE of the following medications: *Heparin 5000 units SQ TID *Enoxaparin/Lovenox 40 mg SQ daily (WT < 150 kg, CrCl > 30 mL/min) *Enoxaparin/Lovenox 30 mg SQ daily (WT < 150 kg, CrCl > 10-29 mL/min) *Enoxaparin/Lovenox 30 mg SQ BID (WT < 150 kg, CrCl > 30 mL/min) AND/OR *Sequential Compression Device (SCD) 5 or more Highest Order ONE of the following medications: *Heparin 5000 units SQ TID (Preferred with Epidurals) *Enoxaparin/Lovenox 40 mg SQ daily (WT < 150 kg, CrCl > 30 mL/min) *Enoxaparin/Lovenox 30 mg SQ daily (WT < 150 kg, CrCl > 10-29 mL/min) *Enoxaparin/Lovenox 30 mg SQ BID (WT < 150 kg, CrCl > 30 mL/min) AND *Sequential Compression Device (SCD) Assessment and Plan - Plan 73-year-old man with Acute on chronic systolic CHF exacerbation Start Lasix 40 mg IV twice daily Resume beta-jarrett Check 2D echo Strict I's and O's Cardiology consultation as needed Elevated troponin I Continue ACS ruled out per protocol with serial cardiac enzyme and EKGs, although this does not appear to be ACS but more likely due to CHF exacerb Chronic A. fib Currently rate controlled Resume Eliquis, Cardizem COPD, oxygen dependent No exacerbation DuoNeb as needed Hypertension, hyperlipidemia, CVA, GERD, osteoarthritis and other chronic medical conditions Resume outpatient medications Hyperthyroidism Stable, continue with outpatient medication Check TSH and free T4 DVT prophylaxis: Sony Discussed Condition With: ED physician, physician
[2018-07-05 16:33] LABS: Free T4 (Free Thyroxine) 1.45 ng/dL (0.76-1.46); Thyroid Stimulating Hormone 3.78 uIU/mL (0.358-3.740)
--- NOTE | 2018-07-05 17:22 | ECHRPT ---
Indication: shortness of breath CONCLUSIONS Normal left ventricular size. Wall thickness is normal. The left ventricular systolic function is severely reduced with an estimated ejection fraction in th e range of 20-25%. The left atrial size is shau-bl-vovprgfwho dilated. Lgxruymm-xk-rxjeib mitral valve regurgitation. Peaf-bl-utjbwjnw aortic valve regurgitation. Cannot exclude vegetation on RCC vs calcification.The estimated pulmonary arterial pressure is 37. m mHg. There is mild tricuspid valve regurgitation. Trivial pericaridal effusion. A moderate left sided pleural effusion is noted. BP: / HR: Rhythm: MEASUREMENTS (Male / Female) Normal Values Technical Quality: 2D ECHO LV Diastolic Diameter PLAX 6.0 cm 4.2 - 5.9 / 3.9 - 5.3 cm LV Systolic Diameter PLAX 5.5 cm IVS Diastolic Thickness 1.2 cm 0.6 - 1.0 / 0.6 - 0.9 cm LVPW Diastolic Thickness 1.1 cm 0.6 - 1.0 / 0.6 - 0.9 cm LV Relative Wall Thickness 0.4 RV Internal Dim ED PLAX 2.4 cm LVOT Diameter 2.4 cm LV Ejection Fraction MOD BP 25.5 % >= 55 % LV Ejection Fraction MOD 4C 28.6 % LV Ejection Fraction 4C AL 29.3 % LV Ejection Fraction MOD 2C 18.9 % LV Ejection Fraction 2C AL 17.3 % M-MODE Aortic Root Diameter MM 3.1 cm LA Systolic Diameter MM 5.8 cm LA Ao Ratio MM 1.9 AV Cusp Separation MM 1.0 cm DOPPLER AV Peak Velocity 112.0 cm/s AV Peak Gradient 5.0 mmHg AV Mean Gradient 2.0 mmHg AV Velocity Time Integral 12.9 cm AI Peak Velocity 380.0 cm/s AI Peak Gradient 57.8 mmHg AI Pressure Half Time 303.5 ms MV Peak Velocity 135.0 cm/s MV Peak Gradient 7.3 mmHg MV Mean Velocity 74.5 cm/s MV Mean Gradient 3.0 mmHg MV Area PHT 2.8 cm Mitral E Point Velocity 122.0 cm/s Mitral A Point Velocity 24.2 cm/s Mitral E to A Ratio 5.0 LV E' Lateral Velocity 8.3 cm/s Mitral E to LV E' Lateral Ratio 14.7 LV E' Septal Velocity 6.4 cm/s Mitral E to LV E' Septal Ratio 19.0 TR Peak Velocity 261.0 cm/s TR Peak Gradient 27.2 mmHg Right Atrial Pressure 10.0 mmHg Pulmonary Artery Systolic Pressu 37.2 mmHg Right Ventricular Systolic Press 37.2 mmHg PV Peak Velocity 79.1 cm/s PV Peak Gradient 2.5 mmHg FINDINGS LEFT VENTRICLE Normal left ventricular size. Wall thickness is normal. The left ventricular systolic function is severely reduced with an estimated ejection fraction in th e range of 20-25%. RIGHT VENTRICLE Normal right ventricular size and systolic function. LEFT ATRIUM The left atrial size is ldnn-uz-ywdwvbrnps dilated. RIGHT ATRIUM The right atrial size is normal. ATRIAL SEPTUM Normal atrial septal thickness without atrial level shunting by limited color doppler interrogation. AORTA The aortic root and proximal ascending aorta are normal in size on limited imaging. MITRAL VALVE Rcgkcrov-qa-iygttz mitral valve regurgitation. AORTIC VALVE Cbao-oa-qhujlkto aortic valve regurgitation. Cannot exclude vegetation on RCC vs calcification. TRICUSPID VALVE The estimated pulmonary arterial pressure is 37. mmHg. There is mild tricuspid valve regurgitation. PULMONARY VALVE No pulmonary valve regurgitation or stenosis. VESSELS The inferior vena cava is normal in size. PERICARDIUM Trivial pericaridal effusion. A moderate left sided pleural effusion is noted. Sean Childress MD, FACC, FSCAI (Electronically Signed) Final Date:05 July 2018 17:21
[2018-07-05 19:48] LABS: Troponin I 0.1 ng/mL (0.02-0.05)
[2018-07-05] MEDS: Metoprolol Tartrate 25 MG Tablet PO SCH (21:13)
[2018-07-05] MEDS ORDERED: traZODone 100 MG Tablet PO SCH (22:30)
[2018-07-06 07:38] LABS: Baso % (Auto) 0.3 % (0.0-2.0); Eos % (Auto) 0.3 % (0.0-4.0); Hematocrit 31.3 % (39.0-51.0); Hemoglobin 9.9 gm/dL (13.0-17.0); Lymph # (Auto) 2.5 th/mm3 (1.0-4.8); Lymph % (Auto) 37.6 % (9.0-44.0); Mean Corpuscular HGB Conc 31.6 % (32.0-36.0); Mean Corpuscular Hemoglobin 24.3 pg (27.0-34.0); Mean Corpuscular Volume 77.1 fL (80.0-100.0); Mean Platelet Volume 11.6 fL (7.0-11.0); Mono # (Auto) 0.6 th/mm3 (0.0-0.9); Mono % (Auto) 8.6 % (0.0-8.0); Neut # (Auto) 3.6 th/mm3 (1.8-7.7); Neut % (Auto) 53.2 % (16.0-70.0); Platelet Count 87 th/mm3 (150-450); Red Blood Count 4.06 mil/mm3 (4.50-5.90); Red Cell Distribution Width 16.5 % (11.6-17.2); White Blood Count 6.7 th/mm3 (4.0-11.0)
[2018-07-06 07:55] LABS: Albumin 3.2 g/dL (3.4-5.0); Anion Gap 9 meq/L (5-15); Aspartate Aminotransferase 17 U/L (15-37); Blood Urea Nitrogen 21 mg/dL (7-18); Calcium 8.4 mg/dL (8.5-10.1); Carbon Dioxide 25.7 meq/L (21.0-32.0); Chloride 109 meq/L (98-107); Glomerular Filtration Rate 56 mL/min (>89); Glucose,Random 75 mg/dL (74-106); Potassium 3.4 meq/L (3.5-5.1); Sodium 144 meq/L (136-145)
[2018-07-06 07:56] LABS: Alanine Aminotransferase 14 U/L (12-78)
[2018-07-06 07:59] LABS: Alkaline Phosphatase 80 U/L (45-117); Total Protein 6.4 g/dL (6.4-8.2)
[2018-07-06] MEDS: Metoprolol Tartrate 25 MG Tablet PO SCH (08:58)
[2018-07-06] MEDS ORDERED: IBRUTINIB 420 MG PO SCH (09:00)
[2018-07-06] MEDS ORDERED: methIMAzole 5 MG Tablet PO SCH (09:00)
[2018-07-06] MEDS ORDERED: traZODone 100 MG Tablet PO SCH (09:00)
[2018-07-06] MEDS ORDERED: dilTIAZem CD 180 MG Capsule PO SCH (09:00)
[2018-07-06] MEDS ORDERED: IBRUTINIB PO SCH ×2 (09:00→13:30)
[2018-07-06 10:01] LABS: Ovalocytes 1+
--- NOTE | 2018-07-06 13:01 | P.PNIM ---
Subjective Interval history: Patient reports he is feeling much better. He is back at baseline. He reports dietary indiscretion with increased salt and water intake prior to the onset of his symptoms. He denies chest pain or shortness of breath currently. He states he will follow-up with his supportive employment case manager at the [employer]. Physical Exam Vital signs: Last Vital Signs Temp 97.7 F 07/06/18 08:00 Pulse 99 H 07/06/18 08:00 Resp 16 07/06/18 08:00 BP 106/70 07/06/18 08:00 Pulse Ox 97 07/06/18 08:00 Intake & Output 07/04/18 07/05/18 07/06/18 07/07/18 06:59 06:59 06:59 06:59 Intake Total 400 / 400 Balance 400 / 400 Weight 68.3 kg Narrative: GENERAL: This is a well-nourished, well-developed patient, in no apparent distress. CARDIOVASCULAR: Normal rate and regular rhythm without murmurs, gallops, or rubs. RESPIRATORY: Good respiratory efforts. Breath sounds equal and clear to auscultation bilaterally. GASTROINTESTINAL: Abdomen soft, non-tender, non-distended. Normal active bowel sounds MUSCULOSKELETAL: Extremities without cyanosis, or edema. NEURO: Alert & Oriented x4 to person, place, time, situation. Moves all ext x4 PSYCH: Appropriate mood and affect. Results Labs CBC & Chem 7: 07/06/18 06:09 07/06/18 06:09 Assessment and Plan Plan 73-year-old man admitted with acute on chronic systolic CHF. Patient admitted to dietary indiscretion with increased salt and water intake. He was given IV diuretics and improved quickly. He is back at baseline. He does have mild elevation of troponin that is likely secondary to acute CHF. He has no cardiac complaints and prefers to follow-up outpatient with his supportive employment case manager. The patient recovered quickly and is back at baseline. He can be discharged home to follow-up outpatient. Discussed the need to be compliant with a strict diet and fluid restriction with the patient. He voiced understanding. Chronic A. fib Currently rate controlled Resume Eliquis, Cardizem COPD, oxygen dependent No exacerbation Advise Hypertension, hyperlipidemia, CVA, GERD, osteoarthritis and other chronic medical conditions Continue outpatient medications Discharge Planning: Discharge patient to home Condition on discharge: Improved Regular Diet as tolerated Ad Angela activity Rx written: None Follow-up with primary care physician Progress Note: Quality VTE Deep Vein Thrombosis/Pulmonary Embolism Present on Admission: No
--- NOTE | 2018-07-06 14:13 | ECG ---
Date Performed: 07/05/2018 Time Performed: 11:05:30 PTAGE: 73 years EKG: ATRIAL FIBRILLATION WITH RAPID VENTRICULAR RESPONSE POSSIBLE RIGHT VENTRICULAR HYPERTROPHY SEPTAL MYOCARDIAL INFARCTION ABNORMAL ECG Compared to PREVIOUS TRACING , heart rate is slower. PREVIOUS TRACING 05/04/2018 07.22.21 DOCTOR: Luis Shearer Interpretating Date/Time 07/06/2018 14:12:26
--- NOTE | 2018-07-06 14:14 | ECG ---
Date Performed: 07/05/2018 Time Performed: 17:18:54 PTAGE: 73 years EKG: ATRIAL FIBRILLATION WITH RAPID VENTRICULAR RESPONSE WITH ABERRANT CONDUCTION OR VENTRICULAR PREMATURE COMPLEXES MARKED RIGHT AXIS DEVIATION SEPTAL MYOCARDIAL INFARCTION , PROBABLY OLD ABNORMAL ECG Compared to PREVIOUS TRACING , the ventricular response to the atrial fibrillation is faster. PREVIOU S TRACIN07/05/2018 11.05 DOCTOR: Luis Shearer Interpretating Date/Time 07/06/2018 14:13:19
== END 2018-07-06 19:00 | disposition home or self-care (01) ==
LOC: NEPC 10:25 → NEDA 10:25 → OBSVTOIN 12:25 → N04 14:52
PROVIDERS: ADMIT Hospitalist; ATTEND Hospitalist